=== PATIENT | female | born 1995 | race Two or more races ===

== ENCOUNTER 2023-07-10 21:40 | Outpatient (REF) | payer OTHER, SELFPAY ==
[2023-07-16 11:10] LABS: Age Gdln ACOG Testing Note (.); IGP, rfx Aptima HPV ASCU Note (.)
== END 2023-07-10 21:41 | disposition home or self-care (01) ==
LOC: LAB 21:40
PROVIDERS: PCP Physician Assistant; Visit Provider Physician Assistant
DX: Z01.419 Encounter for gynecological examination (general) (routine) without abnormal findings (principal)
CPT/HCPCS: G0145

== ENCOUNTER 2024-03-16 12:45 | Emergency (ER) | payer SELFPAY ==
[2024-03-16 12:51] VITALS: BP 126/73; PULSE 86; TEMP 37.1; O2SAT 100; BMI 22.7
--- NOTE | 2024-03-16 13:08 | US_ITS ---
[place] [address] Patient Name: HUI PITTMAN MRN: [id number] date: 1995 Sex: F Assigned Patient Location: ER Current Patient Location: Accession/Order Number: [id number] Exam Date: 03/16/2024 13:30 Report Date: 03/16/2024 14:02 At the request of: ZOILA ROCHA Procedure: US OB <= 14 weeks fetus EXAMINATION: US OB <= 14 weeks fetus HISTORY: Pelvic pain, dysuria 13 weeks preg COMPARISON: No relevant comparison available. FINDINGS: Transabdominal images Maldonado intrauterine gestation Gestational sac: 6.68 cm CRL: 6.69 cm, 13 2 days Heart rate: 166 beats minute Cervix: Closed, 3.2 cm The uterus is normal, anteverted The right ovary is normal containing a corpus luteal cyst. The left ovary is normal Clinical age: Unknown Ultrasound age: 13 weeks 0 days Ultrasound DUGLAS: 09/21/2024 US/US OB <= 14 weeks fetus IMPRESSION: Viable maldonado intrauterine gestation measuring 13 weeks 0 days Electronically authenticated by: YON VARNER Date: 03/16/2024 14:02
--- NOTE | 2024-03-16 13:09 | ED_ITS ---
HPI - General Chief complaint: Urogenital-Female Stated complaint: UTI COMPLAINTS 13 WEEKS Time Seen by Provider: 03/16/24 13:02 Source: patient Mode of arrival: walk-in Limitations: no limitations History of Present Illness HPI Narrative: Patient is a 28-year-old female who presents to the emergency department with multiple concerns related to her . She is 13 weeks by her own calculations of her last menstrual period. She has not been seen by an ADMINISTRATIVE TECH for this . She has not had any blood work or care, no previous ultrasounds. She states for the last 3 months she has had urinary frequency and burning. She is concerned because her significant other was diagnosed with a yeast infection. He states that he was given a cream and a pill. She worries that her symptoms may be due to this. She denies vaginal bleeding or any significant vaginal discharge. No fevers. She has occasional nausea without vomiting. When prompted, she reports mild pelvic pain intermittently. She has no significant abdominal pain, flank or back pain. Related Data Home Medications ?Medication ?Instructions ?Recorded ?Confirmed No Known Home Medications 03/16/24 03/16/24 Previous Rx's ?Medication ?Instructions ?Recorded cephalexin 500 mg capsule 500 mg PO Q8H 7 days #21 caps 03/16/24 ondansetron 4 mg disintegrating 4 mg PO Q6H PRN nausea and 03/16/24 tablet vomiting #12 tabs vitamin#30 30 mg iron-10 1 cap PO DAILY 30 days #30 caps 03/16/24 mg iron-folic acid 1 mg-omg3 capsule Allergies Allergy/AdvReac Type Severity Reaction Status Date / Time No Known Drug Allergies Allergy Verified 03/16/24 12:51 Review of Systems ROS Constitutional Denies: fever or chills Ears, nose, mouth, and throat Denies: throat pain Cardiovascular Denies: chest pain Respiratory Denies: shortness of breath or cough Gastrointestinal Reports: nausea; Denies: abdominal pain or vomiting Genitourinary Reports: painful urination, urinary frequency, urinary urgency and pelvic pain Musculoskeletal Denies: back pain or neck pain Integumentary/Breast Denies: rash Neurological Denies: numbness in extremities or weakness in extremities Hematologic/Lymphatic Denies: easy bruising or easy bleeding PFSH PFSH Social History Little interest or pleasure in doing things: not at all Feeling down, depressed, or hopeless: not at all Exam Narrative Exam Narrative: Gen.: Awake, alert, in no distress Head: Normocephalic, atraumatic ENT: Moist mucous membranes Respiratory: No respiratory distress Gastrointestinal: Abdomen is soft, nondistended and minimally tender in the suprapubic abdomen with no guarding or rebound Extremities: Moves extremities equally Psych: Normal mood and affect Neuro: No focal neuro deficit Skin: Warm, dry, intact Constitutional Vital Signs, click to edit/add: Last Vital Signs Temp 98.7 F 03/16/24 12:51 Pulse 86 03/16/24 12:51 Resp 18 03/16/24 12:51 BP 126/73 03/16/24 12:51 Pulse Ox 100 03/16/24 12:51 O2 Del Method Room Air 03/16/24 12:51 Course Vital Signs Vital signs: Vital Signs Temperature 98.7 F 03/16/24 12:51 Pulse Rate 86 03/16/24 12:51 Respiratory Rate 18 03/16/24 12:51 Blood Pressure 126/73 03/16/24 12:51 Pulse Oximetry 100 03/16/24 12:51 Oxygen Delivery Method Room Air 03/16/24 12:51 Temperature 98.7 F 03/16/24 12:51 Pulse Rate 86 03/16/24 12:51 Respiratory Rate 18 03/16/24 12:51 Blood Pressure 126/73 03/16/24 12:51 Pulse Oximetry 100 03/16/24 12:51 Oxygen Delivery Method Room Air 03/16/24 12:51 MDM - OB/Uterine Contractions MDM Narrative Medical decision making narrative: Ultrasound shows intrauterine gestation at 13 weeks, heart tones were obtained at bedside at 165. Patient with evidence of minimal urinary tract infection. She is given Keflex and Zofran for home. She was encouraged to increase fluids, follow-up with ADMINISTRATIVE TECH as scheduled and return to the ER if symptoms change or worsen. She has no complaints of vaginal bleeding or significant pain. SUPERVISED APC VISIT, PHYSICIAN ATTESTATION: Based on the medical record the care appears appropriate. ? Medical Records Attestation: I reviewed the patient's medical records. Lab Data Attestation: I reviewed the patient's lab results. Labs: Lab Results 03/16/24 Range/Units 13:25 Urine Color Lt. yellow (YELLOW) Urine Clarity Clear (CLEAR) Urine pH 6.0 (5.0-9.0) Ur Specific [place] 1.015 (1.005-1.025) Urine Protein Negative (NEG/TRACE) mg/dL Urine Glucose (UA) Negative (NEGATIVE) mg/dL Urine Ketones 40 A (NEGATIVE) mg/dL Urine Occult Blood Negative (NEGATIVE) Urine Nitrite Negative (NEGATIVE) Urine Bilirubin Negative (NEGATIVE) Urine Urobilinogen 0.2 (0.2-1.0) EU/dL Ur Leukocyte Esterase Small A (NEGATIVE) Urine RBC None seen (0-2) #/HPF Urine WBC 2-5 A (NONE SEEN) #/HPF Ur Squamous Epith Cells Rare (NONE/RARE) #/LPF Urine Crystals None seen (None Seen) #/HPF Urine Bacteria Trace A (NONE SEEN) #/HPF Urine Casts None seen (NONE SEEN) #/LPF Urine Mucus None seen (NONE SEEN) Ur Culture Indicated? Yes Imaging Data US - abdomen: Attestation: I have reviewed the pertinent imaging results. Discharge Plan Discharge Chief Complaint: Urogenital-Female Clinical Impression: Urinary tract infection, Intrauterine Patient Disposition: Home, Self-Care Time of Disposition Decision: 13:50 Condition: Good Prescriptions / Home Meds: New cephalexin 500 mg capsule 500 mg PO Q8H 7 Days Qty: 21 0RF ondansetron 4 mg tablet,disintegrating 4 mg PO Q6H PRN (Reason: nausea and vomiting) Qty: 12 0RF PNV #[id number] 30 mg iron-10 mg iron-1 mg capsule 1 cap PO DAILY 30 Days Qty: 30 0RF No Action No Known Home Medications Print Language: Kiswahili Instructions: Urinary Tract Infection in (ED), at 11 to 14 Weeks (ED) Additional Instructions: Follow up with ADMINISTRATIVE TECH as scheduled Referrals: Crissy Nathan [Physician Business Analyst Intern] - 1 week
--- OUTSIDE RECORDS SUMMARY | 2024-03-16 13:28 | XMS_ITS | CCD ---
Author Organization [facility] Inform ion Partnership [employer] [facility] [employer] Care Team Providers Care Senior Javascript Developer Name Role Phone DR HARRY JOSÉ Attending Unavailable MISC, DR KENNEY Primary Care Unavailable ESTEFANÍA, DR MCDONALD Admitting Unavailable MISC, DR KENNEY Primary Care Unavailable ESTEFANÍA, DR MCDONALD Attending Unavailable ESTEFANÍA, DR MCDONALD Admitting Unavailable ESTEFANÍA, DR MCDONALD Consulting Unavailable ESTEFANÍA, DR MCDONALD Consulting Unavailable ESTEFANÍA, DR MCDONALD Attending Unavailable ESTEFANÍA, DR MCDONALD Admitting Unavailable ZIEBER, DR KODAK Anderson Consulting Unavailable Unavailable Primary Care Provider CRISSY Carcamo Attending Unavailable Problems Active Problems Problem Classification Problem Date Documented Date Episodic/Chronic Immunizations and screening for infectious disease (1 source) Encounter for screening for human papillomavirus (HPV); Translations: [ENC SCREENING HUMAN PAPILLOMAVIRUS] Onset: 10-26-2020 Episodic Other screening for suspected conditions (not mental disorders or infectious disease) (4 sources) Encounter for screening for malignant neoplasm of cervix; Translations: [ENC SCREENING MALIG NEOPLASM CERV] Onset: 10-18-2020 Episodic Past or Other Problems Problem Classification Problem Date Documented Da te Episodic/Chronic Nonmalignant breast conditions (4 sources) Unspecified lump in the left breast, unspecified quadrant; Translations: [UNS LUMP IN LT BREAST UNS QUADRANT] Onset: 12-21-2019 Episodic Results Test Name Value Interpretation Reference Range Facil ity PAP IG RFX APTIMA HPVon 06-0 . . Normal [facility] Comment on above: Result Comment: Performed at: WB Performed By: #### P APHRA #### [facility] [address], [place] [address] Nesha Hays DIAGNOSIS: Comment Normal [facility] Comment on above: Result Comment: NEGATIVE FOR INTRAEPITHE LIAL LESION OR MALIGNANCY. Performed at: WB Performed By: #### P APHRA #### [facility] [address] [place] [address] Nesha Hays HPV Aptima Negative Normal Negative [facility] Comment on above: Result Comment: This nucleic acid amplif ication test detects fourteen high-risk HPV types (16,18,31,33,35,39,45,51,52,56,58,59,66,68) without differentiation. Performed at: =G Performed By: #### P APHRA #### [facility] [address] [place] [address] Neshaedin Hays Note: Comment Normal [facility] Comment on above: Result Comment: The Pap smear is a scree jeaneth test designed to aid in the detection of premalignant and malignant conditions of the uterine cervix. It is not a diagnostic procedure and should not be used as the sole means of detecting cervical cancer. Both false-positive and false-negative reports do occur. . Performed at: WB Performed By: #### P APHRA #### [facility] [address] [place] [address] Nesha Lis Performed by: Comment Normal [facility] Comment on above: Result Comment: Angelica Medrano [employer] nologist (ASCP) Performed at: WB Performed By: #### P APHRA #### [facility] [address] [place] [address] Nesha Hays Specimen adequacy: Comment Normal [facility] Comment on above: Result Comment: Satisfactory for evaluat ion. Endocervical and/or squamous metaplastic cells (endocervical component) are present. Performed at: WB Performed By: #### P APHRA #### [facility] [address] [place] [address] Nesha Hays US BREAST LEFT LIMITEDon US BREAST LEFT LIMITED Patient: LALITHA HANSEN Exam Date: 12/21/2019 : 1995 Gender:F Ordering : DR HARRY JOSÉ . Admission #: [id number] Family : Order #: [id number] CLICK HERE TO VIEW EXAM RADIOLOGY REPORT PROCEDURE: ULTRASOUND BREAST LEFT LIMITED COMPARISON: None. INDICATIONS: Lump in left breast; left breast tenderness and swelling for 1 day; no discharge or discoloration; currently asymptomatic. TECHNIQUE: Breast ultrasound was performed, with evaluation focusing only on specific areas of concern. FINDINGS: DIAGNOSTIC CATEGORY 1--NEGATIVE ASSESSMENT. LEFT BREAST: No significant suspicious finding. RECOMMENDATIONS: CLINICAL EVALUATION. PLEASE NOTE: A NORMAL ULTRASOUND EXAMINATION DOES NOT EXCLUDE THE POSSIBILITY OF BREAST CANCER. A CLINICALLY SUSPICIOUS PALPABLE LUMP SHOULD BE BIOPSIED. Dictated by: Kodak Jimenez M.D. on 12/21/2019 at 14:45 Approved by: Kodak Jimenez M.D. on 12/21/2019 at 14:46 Normal [facility] Vital Signs Date Time Vital Sign Value Performing Clinician David smith 07-10-2023 10:36-0500 Body mass index (BMI) [Ratio] 22.5 kg/m2 Crissy DESIR Work Phone: [facility] 07-10-2023 10:36-0500 Body weight 56.7 kg Crissy DESIR Work Phone: [facility] 07-10-2023 10:36-0500 Diastolic blood pressure 62 mm[Hg] Crissy DESIR Work Phone: [facility] 07-10-2023 10:36-0500 Systolic blood pressure 100 mm[Hg] Crissy DESIR Work Phone: [facility] Encounters Encounter Date Encounter Type Care Provider Facility Start: 07-10-2023 End: 07-10-2023 ambulatory CRISSY WEIR Not Available Start: 07-10-2023 End: 07-10-2023 Patient encounter procedure Crissy DESIR Work Phone: [facility] Start: 07-10-2023 End: 07-10-2023 Periodic preventive med est patient 18-39 yrs Crissy DESIR Work Phone: [facility] Comment on above: Well woman exam with routine gynecological exam Start: 07-09-2023 Chart abstracting Crissy DESIR Work Phone: [facility] Start: 12-01-[address] HARRY JOSÉ Facility : Start: 10-18-2020 End: 10-18-[address] DOCTOR VIEIRA Facility:H1 Start: 12-21-2019 End: 12-22-[address] HARRY JOSÉ Facility:H1 Plan of Treatment Date Care Activity Detail Author Start: 07-13-2024 End: 07-13-2024 Patient encounter procedure 07/13/2024 11:00 AM EST Office Visit [facility] [address] [place] [id number] Crissy Weir PA [address] [place], [facility] Start: 07-10-2023 End: 07-10-2023 Patient encounter procedure 07/10/2023 10:00 AM EST Office Visit [facility] [address] [id number] Crissy Weir PA [address] [place], [facility] Well woman exam with routine gynecological exam [facility] Comment on above: Well woman exam with routine gynecological exam Start: 01-24-2023 Influenza vaccination Influenza Vacc ine (#1) [facility] Cervical or vaginal smear or scraping study Pap Smear Pathology and Cytology Routine Well woman exam with routine gynecological exam Ordered: 07/10/2023 [facility] Work Phone: Comment on above: Ordered: 07/10/2023 Immunizations Immunization Date Immunization Notes Care Provider [facility] 04-27-2009 influenza virus vacc ine, unspecified formulation Crissy DESIR Work Phone: [facility] Payers Date Payer Category Payer Unknown [employer] [id number] 2023-Present [phone] [address] [address] [place] [address] [id number] 2023 Unknown [id number] 1995 Unknown [id number] 1995 Unknown [id number] 1995 Unknown [id number] 1995 Unknown [id number] 1957 Self-pay 1957 Unknown [id number] Social History Date Type Detail Facility Start: 07-09-2023 Tobacco smoking stat [facility] Never smoked tobacco [facility] Start: 07-09-2023 End: 07-10-2023 Alcohol intake Lifetime non-drinker (finding) [facility] Start: 1995 Sex Assigned At Not on file [facility] Start: 07-09-2023 Gender identity Not on file [facility] Start: 07-09-2023 History of Social function [facility] Start: 1995 Sex Assigned At Female N [facility] Start: 07-09-2023 Gender identity Identifies as female gender (finding) [facility] History of Present illness Narrative 07-10-2023 THANG Rios - 07/10/2023 10:00 AM EST Note Date & Type Note Facility 07-10-2023 History of Presen t illness Narrative Reason for Appointment: Patient ID: Lalitha Olguin is a 27 y.o. female who presents for Gynecologic Exam Patient presents today for Annual Exam appointment. Current Medications: currently has no medications in their medication list. Medical History: Active Ambulatory Problems Diagnosis Date Noted No Active Ambulatory Problems Resolved Ambulatory Problems Diagnosis Date Noted No Resolved Ambulatory Problems Past Medical History: Diagnosis Date Breakthrough bleeding with IUD Left breast lump No family history on file. Social History Tobacco Use Smoking status: Never Smokeless tobacco: Not on file Substance Use Topics Alcohol use: Never Drug use: Never History reviewed. No pertinent surgical history. No Known Allergies Review of Systems: Review of Systems Constitutional: Negative. HENT: Negative. Eyes: Negative. Respiratory: Negative. Cardiovascular: Negative. Gastrointestinal: Negative. Musculoskeletal: Negative. Skin: Negative. Neurological: Negative. Psychiatric/Behavioral: Negative. All other systems reviewed and are negative. Hematological: Negative. Endocrine: Negative. Objective Physical Exam Constitutional: Appearance: Normal appearance. Genitourinary: Right Adnexa: not tender and no mass present. Left Adnexa: not tender and no mass present. No cervical discharge. Breasts: Breasts are soft. Right: Normal. Left: Normal. HENT: Head: Normocephalic. Nose: Nose normal. Mouth/Throat: Mouth: Mucous membranes are moist. Cardiovascular: Rate and Rhythm: Normal rate. Pulmonary: Effort: Pulmonary effort is normal. Abdominal: General: Bowel sounds are normal. Palpations: Abdomen is soft. Musculoskeletal: General: Normal range of motion. Cervical back: Normal range of motion. Neurological: General: No focal deficit present. Mental Status: She is alert. Skin: General: Skin is warm and dry. Psychiatric: Mood and Affect: Mood normal. Vitals and nursing note reviewed. Exam conducted with a psychology assistant present. Patient presents today for an annual exam. Patient states she is doing well and has no complaints. Pap was obtained without difficulty. Pt desires b/c and is interested in the pill. Follow Up: Patient is to return in one year for annual unless needed otherwise. Vitals: Estimated body mass index is 22.5 kg/m as calculated from the following: Height as of 09/16/22: 5' 2.5 . Weight as of this encounter: 125 lb. BP: 100/62 Patient's last menstrual period was 07/01/2023 (approximate). Assessment/Plan Encounter Diagnosis Name Primary? Well woman exam with routine gynecological exam Patient presents today for an annual exam. Patient states she is doing well and has no complaints. Pt requests CX's to be done. Pap and Cx's was obtained without difficulty. Follow Up: Patient is to return in one year for annual unless needed otherwise. Documented by Debora Cardona MA on behalf of: THANG Rios documented in this encounter [facility] Evaluation note Note Date & Type Note Facility Evaluation note Diagnosis Well woman exam with routine gynecological exam Routine gynecological examination documented in this encounter [facility] Summary Purpose Family History No Family History Records FoundNo Family History Records Found Advance Directives No Advanced Directives Records FoundNo Advanced Directives Records Found Additional Source Comments INFORMATION SOURCE (unrecogn ized section and content) DATE CREATED AUTHOR 12/03/2020 [facility] DATE CREATED AUTHOR AUTHOR'S ORGANDUNIA ATDOMINIQUE 07/12/2023 [facility] EPIC Reason for Visit (unrecogniz ed section and content) Reason Comments Gynecologic Exam FOR RECORDS PERTAINING TO PATIENTS WHO ARE OR HAVE BEEN ENROLLED IN A CHEMICAL DEPENDENCY/SUBSTANCEABUSE PROGRAM, SOME INFORMATION MAY BE OMITTED. This clinical summary was aggregated from multiple sources. Caution should be exercised in using it in the provision of clinical care. This summary normalizes information from multiple sources, and as a consequence, information in this document may materially change the coding, format and clinical context of patient data. In addition, data may be omitted in some cases. CLINICAL DECISIONS SHOULD BE BASED ON THE PRIMARY CLINICAL RECORDS. [employer] provides no warranty or guarantee of the accuracy or completeness of information in this document.
[2024-03-16 13:34] LABS: Bilirubin Urine NEGATIVE (NEGATIVE); Blood Urine NEGATIVE (NEGATIVE); Clarity Urine CLEAR (CLEAR); Color Urine LT. YELLOW (YELLOW); Glucose Urine UA NEGATIVE (NEGATIVE); Ketones Urine 40 mg/dL (NEGATIVE); Leukocyte Esterase Urine SMALL (NEGATIVE); Nitrite Urine NEGATIVE (NEGATIVE); Protein Urine NEGATIVE (NEG/TRACE); Specific Gravity Urine 1.015 (1.005-1.025); Urobilinogen Urine 0.2 EU/dL (0.2-1.0)
[2024-03-16 13:35] LABS: Urine Microscopic Indicated YES
[2024-03-16 13:41] LABS: Bacteria Urine TRACE #/HPF (NONE SEEN); RBC Urine NONE SEEN #/HPF (0-2)
[2024-03-16 13:42] LABS: Cast Seen? NONE SEEN #/LPF (NONE SEEN); Crystals Seen? None Seen #/HPF (None Seen); Mucus Urine NONE SEEN (NONE SEEN); Squamous Epithelial Cell Urine RARE #/LPF (NONE/RARE); Urine Culture Indicated YES
== END 2024-03-16 13:59 | disposition home or self-care (01) ==
PROVIDERS: Physician Assistant; Emergency Provider Emergency Medicine
DX: O23.41 Unspecified infection of urinary tract in pregnancy, first trimester (principal); N39.0 Urinary tract infection, site not specified; Z3A.13 13 weeks gestation of pregnancy
CPT/HCPCS: 76801; 81001; 87086; 99284

== ENCOUNTER 2024-05-04 13:05 | Outpatient (OUT) | payer OTHER, SELFPAY ==
--- NOTE | 2024-05-04 13:07 | US_ITS ---
[address] [address] Patient Name: HUI PITTMAN MRN: [id number] date: 1995 Sex: F Assigned Patient Location: [facility] Current Patient Location: Accession/Order Number: [id number] Exam Date: 05/04/2024 13:08 Report Date: 05/05/2024 04:35 At the request of: HARRY JOSÉ Procedure: US OB anatomy EXAMINATION: US OB anatomy, US OB cervical length HISTORY: ANATOMY COMPARISON: Ultrasound OB < 14 weeks 03/16/2024 TECHNIQUE: Transabdominal sonographic examination was performed for obstetrical and evaluation. FINDINGS: Number: 1 Heart Rate: 144 bpm H.B. /min Amniotic Fluid Volume: Subjectively normal. Placental Location: POSTERIOR with lower margin 5.8 cm from os. Cervix Length: 5.17 cm ; closed. ANATOMY: Normal Structures -cerebellum, choroid plexus, cisterna magna, lateral cerebral ventricles, orbits, midline falx, hard palate, four-chamber heart, RVOT, LVOT, stomach, kidneys, bladder, umbilical cord insertion into abdomen, three-vessel cord, cervical spine, thoracic spine, lumbar spine, sacral spine, right upper extremity, left upper extremity, right lower extremity, left lower extremity. SUBOPTIMALLY SEEN: None ABNORMALITIES: None BIOMETRY: BPD: 4.64 cm; 20 weeks 0 days; 51.10 % HC: 17.52 cm; 20 weeks 0 days; 43.60 % AC: 14.48 cm; 19 weeks 6 days; 37.50 % FL: 3.33 cm; 20 weeks 3 days; 57.90 % EFW:323.10 g; 50.10 % FL/AC: 23 FL/BPD: 71.77 HC/AC: 1.21 GESTATIONAL AGE: Age by EDC: 20 weeks 0 days Age by current US: 20 weeks 1 day DUGLAS by current US: 2024-09-20 DUGLAS by EDC: 2024-09-21 US/US OB anatomy IMPRESSION: 1. Single live intrauterine with growth detailed above. Electronically authenticated by: RASHID BARR Date: 05/05/2024 04:35
--- NOTE | 2024-05-04 13:07 | US_ITS ---
[address] [address] Patient Name: HUI PITTMAN MRN: [id number] date: 1995 Sex: F Assigned Patient Location: [facility] Current Patient Location: Accession/Order Number: [id number] Exam Date: 05/04/2024 13:08 Report Date: 05/05/2024 04:35 At the request of: HARRY JOSÉ Procedure: US OB cervical length EXAMINATION: US OB anatomy, US OB cervical length HISTORY: ANATOMY COMPARISON: Ultrasound OB < 14 weeks 03/16/2024 TECHNIQUE: Transabdominal sonographic examination was performed for obstetrical and evaluation. FINDINGS: Number: 1 Heart Rate: 144 bpm H.B. /min Amniotic Fluid Volume: Subjectively normal. Placental Location: POSTERIOR with lower margin 5.8 cm from os. Cervix Length: 5.17 cm ; closed. ANATOMY: Normal Structures -cerebellum, choroid plexus, cisterna magna, lateral cerebral ventricles, orbits, midline falx, hard palate, four-chamber heart, RVOT, LVOT, stomach, kidneys, bladder, umbilical cord insertion into abdomen, three-vessel cord, cervical spine, thoracic spine, lumbar spine, sacral spine, right upper extremity, left upper extremity, right lower extremity, left lower extremity. SUBOPTIMALLY SEEN: None ABNORMALITIES: None BIOMETRY: BPD: 4.64 cm; 20 weeks 0 days; 51.10 % HC: 17.52 cm; 20 weeks 0 days; 43.60 % AC: 14.48 cm; 19 weeks 6 days; 37.50 % FL: 3.33 cm; 20 weeks 3 days; 57.90 % EFW:323.10 g; 50.10 % FL/AC: 23 FL/BPD: 71.77 HC/AC: 1.21 GESTATIONAL AGE: Age by EDC: 20 weeks 0 days Age by current US: 20 weeks 1 day DUGLAS by current US: 2024-09-20 DUGLAS by EDC: 2024-09-21 US/US OB cervical length IMPRESSION: 1. Single live intrauterine with growth detailed above. Electronically authenticated by: RASHID BARR Date: 05/05/2024 04:35
--- OUTSIDE RECORDS SUMMARY | 2024-05-04 13:34 | XMS_ITS | CCD ---
Author Organization [facility] Care Team Providers Care Superintendent [employer] Name Role Phone DR HARRY HARDWICK Attending Unavailable MISC, DR KENNEY Primary Care Unavailable MULU, DR MCDONALD Admitting Unavailable MISC, DR KENNEY Primary Care Unavailable MULU, DR MCDONALD Attending Unavailable MULU, DR MCDONALD Admitting Unavailable MULU, DR MCDONALD Consulting Unavailable MULU, DR MCDONALD Consulting Unavailable MULU, DR MCDONALD Attending Unavailable MULU, DR MCDONALD Admitting Unavailable ZIEBZAIRA, DR KODAK Anderson Consulting Unavailable Unavailable Primary Care Provider CRISSY Carcamo Attending Unavailable Medications Current Medications Medication Drug Class(es) Dates Sig (Normalized) Sig (Original) multivitamin () 27-0.8 MG tablet (3 sources) Start: 04-15-2024 take 1 tablet by mouth once daily multivitamin () 27-0.8 MG tablet Indications: , unspecified gestational age Take 1 tablet by mouth Daily 30 tablet 11 04/15/2024 Active Start: 03-18-2024 take 1 tablet by mounika th once daily multivitamin () 27-0.8 MG tablet TAKE 1 TABLET BY MOUTH ONCE DAILY FOR 30 DAYS 03/18/2024 Active ondansetron 4 mg disintegrating oral tablet (3 sources) Serotonin-3 Receptor Antagonist Start: 03-18-2024 take 1 tablet by mouth every six hours as needed ondansetron ODT (Zofran-ODT) 4 MG disintegrating tablet Take 4 mg by mouth every 6 (six) hours if needed 03/18/2024 Active Problems Active Problems Problem Classification Problem Date Documented Date Episodic/Chronic Immunizations and screening for infectious disease (1 source) Encounter for screening for human papillomavirus (HPV); Translations: [ENC SCREENING HUMAN PAPILLOMAVIRUS] Onset: 10-26-2020 Episodic Menstrual disorders (1 source) Missed period; Translations: [Irregular menstruation, unspecified] 04-02-2024 Chronic Other and delivery including normal (6 sources) ; Translations: [Encounter for supervision of normal , unspecified, unspecified trimester] Onset: 04-20-2024 04-02-2024 Episodic Other screening for suspected conditions (not mental disorders or infectious disease) (8 sources) Encounter for screening for malignant neoplasm of cervix; Translations: [Patient encounter status] Onset: 10-18-2020 Episodic Residual codes; unclassified (4 sources) Gestation period, 18 weeks; Translations: [18 weeks gestation of ] Onset: 04-20-2024 04-20-2024 Episodic Past or Other Problems Problem Classification Problem Date Documented Da te Episodic/Chronic Nonmalignant breast conditions (4 sources) Unspecified lump in the left breast, unspecified quadrant; Translations: [UNS LUMP IN LT BREAST UNS QUADRANT] Onset: 12-21-2019 Episodic Results Test Name Value Interpretation Reference Range Facility Urinalysis macro (dipstick) panel (U)on 04-21-2024 Bilirubin, UA Negative Negative - 4(70) +++ mg/dL [facility] Blood, UA Negative Negative - 50 Quentin/mcL [facility] Clarity, UA Clear [facility] re Color, UA Yellow [facility] e Glucose, UA Negative Negative - 1999(110) ++++ mg/dL [facility] Interpretation and review of laboratory results Normal [facility] Ketones, UA Negative Negative - 160(16) ++++ mg/dL [facility] Leukocytes, UA Negative Negative - 500+++ Angelica/mcL [facility] Nitrite, UA Negative Negative - Positive [facility] pH, UA 7 5 - [address] [facility] e Protein, UA Negative Negative - 1999(20) ++++ mg/dL [facility] Spec Grav, UA 1.025 1 - 1.03 [facility] Urobilinogen, UA 0.2 0.2 - 12 mg/dL [facility] HCG ( test) Ql (U)o n 04-02-2024 Interpretation and review of laboratory results Abnormal [facility] Preg Test, Ur Positive Negative [facility] Urinalysis macro (dipstick) panel (U)on 04-02-2024 Bilirubin, UA Negative Negative - 4(70) +++ mg/dL [facility] Blood, UA Negative Negative - 50 Quentin/mcL [facility] Clarity[facility] UA Yellow [facility] Glucose, UA Negative Negative - 1999(110) ++++ mg/dL [facility] Interpretation and review of laboratory results Normal [facility] Ketones, UA Negative Negative - 160(16) ++++ mg/dL [facility] Leukocytes, UA Negative Negative - 500+++ Angelica/mcL [facility] Nitrite, UA Negative Negative - Positive [facility] pH, UA 5.5 5 - [address] [facility] e Protein, UA Negative Negative - 1999(20) ++++ mg/dL [facility] Spec Grav, UA 1.02 1 - 1.03 [facility] Urobilinogen, UA 1.0 0.2 - 12 mg/dL [facility] PAP IG RFX APTIMA HPVon 06-0 . . Normal [facility] Comment on above: Result Comment: Perf ormed at: WB Performed By: #### P APHRA #### [facility] [address] [address] [place] DIAGNOSIS: Comment Normal [facility] Comment on above: Result Comment: NEGA TIVE FOR INTRAEPITHELIAL LESION OR MALIGNANCY. Performed at: WB Performed By: #### P APHRA #### [facility] [address] [address] [place] HPV Aptima Negative Normal Negative [facility] Comment on above: Result Comment: This nucleic acid amplification test detects fourteen high-risk HPV types (16,18,31,33,35,39,45,51,52,56,58,59,66,68) without differentiation. Performed at: =G Performed By: #### P APHRA #### [facility] [address] [address] [place] Note: Comment Normal [facility] Comment on above: Result Comment: The Pap smear is a screening test designed to aid in the detection of premalignant and malignant conditions of the uterine cervix. It is not a diagnostic procedure and should not be used as the sole means of detecting cervical cancer. Both false-positive and false-negative reports do occur. . Performed at: WB Performed By: #### P APHRA #### [facility] [address] [address] [place] Performed by: Comment Normal [facility] Comment on above: Result Comment: Erick Medrano, Mower Mechanic (ASCP) Performed at: WB Performed By: #### P APHRA #### [facility] [address] [address] [place] Specimen adequacy: Comment Normal [facility] Comment on above: Result Comment: Sati sfactory for evaluation. Endocervical and/or squamous metaplastic cells (endocervical component) are present. Performed at: WB Performed By: #### P APHRA #### [facility] [address] [address] [place] US BREAST LEFT LIMITEDon US BREAST LEFT LIMITED Patient: LALITHA HANSEN Exam Date: 12/21/2019 : 1995 Gender:F Ordering : DR HARRY HARDWICK . Admission #: [id number] Family : Order #: [id number] CLICK HERE TO VIEW EXAM RADIOLOGY REPORT [...] Jimenez M.D. on 12/21/2019 at 14:46 Normal [facility] Vital Signs Date Time Vital Sign Value Performing Clinician Faci lity 04-20-2024 13:14-0500 Body mass index (BMI) [Ratio] 23.22 kg/m2 Harry Hardwick DO Work Phone: [facility] 04-20-2024 13:14-0500 Body weight 58.51 kg Harry Mulu DO Work Phone: [facility] 04-20-2024 13:14-0500 Diastolic blood pressure 68 mm[Hg] Harry Mulu DO Work Phone: [facility] 04-20-2024 13:14-0500 Systolic blood pressure 108 mm[Hg] Harry Mulu DO Work Phone: [facility] 07-10-2023 10:36-0500 Body mass index (BMI) [Ratio] 22.5 kg/m2 Crissy DESIR Work Phone: [facility] 07-10-2023 10:36-0500 Body weight 56.7 kg Crissy DESIR Work Phone: [facility] 07-10-2023 10:36-0500 Diastolic blood pressure 62 mm[Hg] Crissy DESIR Work Phone: [facility] 07-10-2023 10:36-0500 Systolic blood pressure 100 mm[Hg] Crissy DESIR Work Phone: [facility] Healthcare Encounters Encounter Date Encounter Type Care Provider Facility Start: 04-20-2024 End: 04-20-2024 Office outpatient visit 15 minutes Harry Silveirao DO Work Phone: [facility] Comment on above: 18 weeks gestation o f ; Second trimester ; Screening, , for anatomic survey Start: 04-02-2024 End: 04-02-2024 Office outpatient visit 5 minutes [facility] Mulu Nurse [facility] Comment on above: GA: 15w3d Start: 04-02-2024 End: 04-02-2024 ambulatory CRISSY WEIR Not Available Start: 07-10-2023 End: 07-10-2023 ambulatory CRISSY WEIR Not Available Start: 07-10-2023 End: 07-10-2023 Patient encounter procedure Crissy DESIR Work Phone: [facility] Healthcare Start: 07-10-2023 End: 07-10-2023 Periodic preventive med est patient 18-39 yrs Crissy DESIR Work Phone: [facility] Comment on above: Well woman exam with routine gynecological exam Start: 07-09-2023 Chart abstracting Crissy DESIR Work Phone: [facility] Start: 12-01-[address] HARRY HARDWICK Facility :[facility]1 Start: 10-18-2020 End: 10-18-[address] DOCTOR VIEIRA Facility:[facility] Start: 12-21-2019 End: 12-22-[address] HARRY HARDWICK Facility:[facility] Procedures Date Procedure Procedure Detail Performing Clinician Start: 04-20-2024 Urnls dip stick/tabl et rgnt non-auto w/o micrscp Harry Mulu DO Work Phone: Start: 04-02-2024 End: 04-02-2024 Urnls dip stick/tablet rgnt non-auto w/o micrscp Harry Mulu DO Work Phone: Plan of Treatment Date Care Activity Detail Author Start: 07-13-2024 End: 07-13-2024 Patient encounter procedure 07/13/2024 11:00 AM EST Office Visit [facility] [address] [place] [address] Crissy Weir PA [address] [place], [place] [id number] [facility] Start: 05-20-2024 End: 05-20-2024 Patient encounter procedure 05/20/2024 9:10 AM EST Routine [facility] [address] [place] [id number] Harry Hardwick DO [address] [place], [place] [id number] [facility] Start: 05-04-2024 End: 05-04-2024 Professional / ancillary services management 05/04/2024 1:00 PM EST Ancillary Procedure [facility] [address] [place] [address] [facility] Start: 04-20-2024 End: 08-18-2024 Alpha fetoprotein, maternal Alpha fetoprotein, maternal Lab Routine 18 weeks gestation of Second trimester Expected: 04/20/2024 (Approximate), Expires: 08/18/2024 [facility] Work Phone: Comment on above: Expected: 04/20/2024 (Approximate), Expires: 08/18/2024 Start: 04-20-2024 End: 04-20-2025 US for US OB ANATOMY SINGLE W US OB CERVICAL LENGTH Imaging Routine 18 weeks gestation of Second trimester Screening, , for anatomic survey Expected: 04/20/2024 (Approximate), Expires: 04/20/2025 [facility] Healthcare Comment on above: Expected: 04/20/2024 (Approximate), Expires: 04/20/2025 Start: 04-19-2024 End: 04-19-2024 Patient encounter procedure 04/19/2024 9:20 AM EST Routine [facility] [address] [place] [id number] Harry Hardwick, [address] [place] [address] [facility] Start: 04-02-2024 End: 04-02-2025 ABO/Rh ABO/Rh Lab Routine Missed menses , unspecified gestational age Expected: 04/02/2024 (Approximate), Expires: 04/02/2025 [facility] Healthcare Comment on above: Expected: 04/02/2024 (Approximate), Expires: 04/02/2025 Start: 04-02-2024 End: 04-02-2025 Blood type and Indirect antibody screen panel - Blood Type and screen Lab Routine Missed menses , unspecified gestational age Expected: 04/02/2024 (Approximate), Expires: 04/02/2025 [facility] Work Phone: Comment on above: Expected: 04/02/2024 (Approximate), Expires: 04/02/2025 Start: 04-02-2024 End: 04-02-2025 Drugs of abuse panel - Urine by Screen method Rapid drug screen, urine Lab Routine , unspecified gestational age Encounter for supervision of normal first in first trimester Expected: 04/02/2024 (Approximate), Expires: 04/02/2025 [facility] Comment on above: Expected: 04/02/2024 (Approximate), Expires: 04/02/2025 Start: 01-25-2024 Influenza vaccination Influenza Vacc ine (#1) [facility] Start: 07-10-2023 End: 07-10-2023 Patient encounter procedure 07/10/2023 10:00 AM EST Office Visit [facility] [address] [place] [address] Crissy Weir PA [address] [place] [address] Well woman exam with routine gynecological exam [facility] Comment on above: Well woman exam with routine gynecological exam Start: 01-24-2023 Influenza vaccination Influenza Vacc ine (#1) [facility] Bacteria identified in Urine by Culture Urine culture Microbiology Routine Missed menses Ordered: 04/02/2024 [facility] Comment on above: Ordered: 04/02/2024 CBC W Auto Different ial panel - Blood CBC and differential Lab Routine Missed menses , unspecified gestational age Ordered: 04/02/2024 [facility] Comment on above: Ordered: 04/02/2024 Cytology Cervical or vaginal smear or scraping study Pap Smear Pathology and Cytology Routine Well woman exam with routine gynecological exam Ordered: 07/10/2023 [facility] Work Phone: Comment on above: Ordered: 07/10/2023 Hemoglobin A1c/Hemoglobin.total in Blood Hemoglobin A1c Lab Routine Missed menses , unspecified gestational age Ordered: 04/02/2024 [facility] Comment on above: Ordered: 04/02/2024 Hepatitis B virus surface Ag [Presence] in Serum or Plasma by Immunoassay Hepatitis B surface antigen Lab Routine Missed menses , unspecified gestational age Ordered: 04/02/2024 [facility] Comment on above: Ordered: 04/02/2024 Hepatitis C virus Ab [Presence] in Serum or Plasma by Immunoassay Hepatitis C antibody Lab Routine Missed menses , unspecified gestational age Ordered: 04/02/2024 [facility] Healthcare Comment on above: Ordered: 04/02/2024 HIV-1/HIV-2 antigen/antibody combination immunoassay HIV-1 and HIV-2 antibodies Lab Routine Missed menses , unspecified gestational age Ordered: 04/02/2024 [facility] Comment on above: Ordered: 04/02/2024 Reagin Ab [Presence] in Serum by RPR RPR Lab Routine Missed menses , unspecified gestational age Ordered: 04/02/2024 [facility] Comment on above: Ordered: 04/02/2024 Rubella antibody, IgG Rubella an tibody, IgG Lab Routine Missed menses , unspecified gestational age Ordered: 04/02/2024 [facility] Comment on above: Ordered: 04/02/2024 Immunizations Immunization Date Immunization Notes Care Provider Wil hoyos 04-27-2009 influenza virus vacc ine, unspecified formulation Crissy DESIR Work Phone: [facility] Healthcare Payers Date Payer Category Payer Medicaid (Managed Care) [employer] [id number] 2024 Medicaid [id number] 2023 Unknown [employer] [id number] 2023-Present [phone] [address] [address] [place] [address] [id number] 2023 Unknown [id number] 1995 Unknown [id number] 1995 Unknown [id number] 1995 Unknown [id number] 1995 Unknown [id number] 1995 Unknown [id number] 1957 Self-pay 1957 Unknown [id number] Social History Date Type Detail Facility Start: 07-09-2023 Tobacco smoking stat [facility] Never smoked tobacco [facility] Start: 07-09-2023 End: 04-02-2024 Alcohol intake Lifetime non-drinker (finding) [facility] Start: 1995 Sex Assigned At Not on file [facility] Start: 07-09-2023 Gender identity Not on file [facility] Start: 07-09-2023 History of Social function [facility] Start: 1995 Sex Assigned At Female [facility] Start: 07-09-2023 Gender identity Identifies as female gender (finding) [facility] Start: 12-30-2023 [facility] History of Present illness Narrative 04-20-2024 Lis MullenJEREMY - 04/20/2024 11:00 AM EST Note Date & Type Note Facility 04-20-2024 History of Presen t illness Narrative Reason for Appointment: Patient ID: Lalitha Chong is a 28 y.o. female who presents for Routine Visit Patient presents today for Return OB appointment. MEDICATIONS Current Outpatient Medications Medication Instructions multivitamin () 27-0.8 MG tablet 1 tablet, Oral, Daily ondansetron ODT (ZOFRAN-ODT) 4 mg, Every 6 hours PRN ALLERGIES No Known Allergies PROBLEMS Active Ambulatory Problems Diagnosis Date Noted 18 weeks gestation of 04/20/2024 Second trimester 04/20/2024 Screening, , for anatomic survey 04/20/2024 Resolved Ambulatory Problems Diagnosis Date Noted No Resolved Ambulatory Problems Past Medical History: Diagnosis Date Breakthrough bleeding with IUD Left breast lump Pap smear for cervical cancer screening 2021 HISTORY PAST MEDICAL HISTORY SOCIAL HISTORY Past Medical History: Diagnosis Date Breakthrough bleeding with IUD Left breast lump Pap smear for cervical cancer screening 2021 neg Social History Tobacco Use Smoking status: Never Smokeless tobacco: Not on file Substance Use Topics Alcohol use: Never Drug use: Never FAMILY HISTORY No family history on file. SURGICAL HISTORY No past surgical history on file. REVIEW OF SYSTEMS Review of Systems: Review of Systems Constitutional: Negative. HENT: Negative. Eyes: Negative. Respiratory: Negative. Cardiovascular: Negative. Gastrointestinal: Negative. Genitourinary: Negative. Musculoskeletal: Negative. Skin: Negative. Neurological: Negative. All other systems reviewed and are negative. Hematological: Negative. Endocrine: Negative. Allergic/Immunologic: Negative. OBJECTIVE Objective: Physical Exam Constitutional: Appearance: Normal appearance. She is well-developed. Cardiovascular: Rate and Rhythm: Normal rate and regular rhythm. Pulmonary: Effort: Pulmonary effort is normal. Breath sounds: Normal breath sounds. Abdominal: General: Bowel sounds are normal. There is no distension. Palpations: Abdomen is soft. Tenderness: There is no abdominal tenderness. There is no guarding or rebound. Musculoskeletal: General: No swelling. Normal range of motion. Right lower leg: No edema. Left lower leg: No edema. Neurological: Mental Status: She is alert and oriented to person, place, and time. Skin: General: Skin is warm and dry. Psychiatric: Mood and Affect: Mood normal. Behavior: Behavior normal. Vitals and nursing note reviewed. Exam conducted with a biology adjunct instructor present. Vitals: Estimated body mass index is 23.22 kg/m as calculated from the following: Height as of 09/16/22: 5' 2.5 . Weight as of this encounter: 129 lb. BP: Patient's last menstrual period was 11/12/2023. ASSESSMENT & PLAN ICD-10-CM 1. 18 weeks gestation of Z3A.18 Alpha fetoprotein, maternal US OB ANATOMY SINGLE W US OB CERVICAL LENGTH Alpha fetoprotein, maternal 2. Second trimester Z34.92 Alpha fetoprotein, maternal US OB ANATOMY SINGLE W US OB CERVICAL LENGTH Alpha fetoprotein, maternal 3. Screening, , for anatomic survey Z36.89 US OB ANATOMY SINGLE W US OB CERVICAL LENGTH Patient presents today for a routine obstetrics appointment. Patient is currently 18w1d with a Estimated Date of Delivery: 09/21/24. Pt doing well with no complaints. Pt given anatomy scan and msAFP orders to get scheduled. Pt to return in 4 weeks for scheduled OB appt. Documented by Lis Mullen LPN on behalf of: Harry Hardwick DO documented in this encounter [facility] History of Present illness Narrative 04-02-2024 Jesusita Ramos LPN - 04/02/2024 11:00 AM EST Note Date & Type Note Facility 04-02-2024 History of Presen t illness Narrative Reason for Appointment: Patient ID: Lalitha Chong is a 28 y.o. female who presents for Routine Visit Patient presents today for a Nurse OB Intake appointment. Patient is 15w3d with a Estimated Date of Delivery: 09/21/24 OB History Para Term AB Living 2 SAB IAB Ectopic Multiple Live Births # Outcome Date GA Lbr Jose Ramon/2nd Weight Sex Type Anes PTL Lv 2 Current 1 Obstetric Comments Last pap smear date 10/18/2020 neg Current Medications: has a current medication list which includes the following prescription(s): multivitamin and ondansetron odt. Medical History: Active Ambulatory Problems Diagnosis Date Noted No Active Ambulatory Problems Resolved Ambulatory Problems Diagnosis Date Noted No Resolved Ambulatory Problems Past Medical History: Diagnosis Date Breakthrough bleeding with IUD Left breast lump Pap smear for cervical cancer screening 2021 No family history on file. Social History Tobacco Use Smoking status: Never Smokeless tobacco: Not on file Substance Use Topics Alcohol use: Never Drug use: Never History reviewed. No pertinent surgical history. No Known Allergies Vitals: Estimated body mass index is 22.5 kg/m as calculated from the following: Height as of 09/16/22: 5' 2.5 . Weight as of 07/10/23: 125 lb. BP: Patient's last menstrual period was 11/12/2023. Assessment/Plan Diagnoses and all orders for this visit: Missed menses - Type and screen; Future - ABO/Rh; Future - CBC and differential - Hemoglobin A1c - RPR - Rubella antibody, IgG - Hepatitis B surface antigen - Hepatitis C antibody - HIV-1 and HIV-2 antibodies - Urine culture - POCT , urine manually resulted - POCT urinalysis dipstick manually resulted , unspecified gestational age - Type and screen; Future - ABO/Rh; Future - CBC and differential - Hemoglobin A1c - RPR - Rubella antibody, IgG - Hepatitis B surface antigen - Hepatitis C antibody - HIV-1 and HIV-2 antibodies - Rapid drug screen, urine; Future Encounter for supervision of normal first in first trimester - Rapid drug screen, urine; Future Nurse Note: OB Intake: Patient presents today for first OB visit. Patients history has been reviewed in great detail including any potential risks. Patient signed consent forms and patient desires testing in both trimesters. Patient currently has no complaints and has been advised to drink 6-8 glasses of water a day, eat no raw or undercooked meat, and stay away from [facility]. Patient has also been advised to not change litter boxes and eat 6 small meals a day. Patient has been consulted regarding the do's and don'ts of . Patient was given labs and all questions and concerns were answered. Follow Up: Patient is to return in 4 weeks for routine OB appointment. Follow Up: Patient is to have labs drawn at directed and return to office for initial OB appointment with provider. Patient may call office as needed with any concerns or questions. Nurse Visit Completed by: Jesusita Ramos LPN documented in this encounter [facility] History of Present illness Narrative 07-10-2023 THANG [...] nursing note reviewed. Exam conducted with a biology adjunct instructor present. Patient presents today for an annual [...] of: THANG Rios documented in this encounter [facility] Healthcare Evaluation note Note Date & Type Note Facility Evaluation note Diagnosis Well woman exam with routine gynecological exam Routine gynecological examination documented in this encounter [facility] Healthcare Evaluation note Note Date & Type Note Facility Evaluation note Diagnosis Missed menses , unspecified gestational age Encounter for supervision of normal first in first trimester documented in this encounter [facility] Healthcare Evaluation note Note Date & Type Note Facility Evaluation note Diagnosis 18 weeks gestation of Second trimester state, incidental Screening, , for anatomic survey Encounter for anatomic survey documented in this encounter [facility] Healthcare Summary Purpose Family History No Family History Records FoundNo Family History Records Found Advance Directives No Advanced Directives Records FoundNo Advanced Directives Records Found Additional Source Comments INFORMATION SOURCE (unrecogn ized section and content) DATE CREATED AUTHOR 12/03/2020 [facility] DATE CREATED AUTHOR AUTHOR'S ORGANIZ ATION 04/04/2024 [facility] EPIC Reason for Visit (unrecogniz ed section and content) Reason Comments Gynecologic Exam Reason Comments Routine Visit FOR RECORDS PERTAINING TO PATIENTS WHO ARE [...] BE BASED ON THE PRIMARY CLINICAL RECORDS. [facility]. provides no warranty or guarantee of the accuracy or completeness of information in this document.
== END 2024-05-04 13:06 | disposition home or self-care (01) ==
LOC: NOMS 13:05
PROVIDERS: Visit Provider Obstetrics & Gynecology
DX: Z34.92 Encounter for supervision of normal pregnancy, unspecified, second trimester (principal); Z36.89 Encounter for other specified antenatal screening; Z3A.20 20 weeks gestation of pregnancy
CPT/HCPCS: 76805; 76817

== ENCOUNTER 2024-06-17 11:56 | Outpatient (OUT) | payer OTHER, SELFPAY ==
--- OUTSIDE RECORDS SUMMARY | 2024-06-17 12:14 | XMS_ITS | CCD ---
Author Organization [facility] Care Team Providers Care Pipe Tester Name Role Phone DR HARRY HARDWICK Attending Unavailable MISC, DR KENNEY Primary Care Unavailable MULU, DR MCDONALD Admitting Unavailable MISC, DR KENNEY Primary Care Unavailable MULU, DR MCDONALD Attending Unavailable MULU, DR MCDONALD Admitting Unavailable MULU, DR MCDONALD Consulting Unavailable MULU, DR MCDONALD Consulting Unavailable MULU, DR MCDONALD Attending Unavailable MULU, DR MCDONALD Admitting Unavailable ZIBOSSMAN, DR KODAK Anderson Consulting Unavailable Unavailable Primary Care Provider UnavailCRISSY Shaw Attending Unavailable HARRY HARDWICK Attending Unavailable Medications Current Medications Medication Drug Class(es) Dates Sig (Normalized) Sig (Original) multivitamin () 27-0.8 MG tablet (6 sources) Start: 04-15-2024 take 1 tablet by [...] Active ondansetron 4 mg disintegrating oral tablet (6 sources) Serotonin-3 Receptor Antagonist Start: 03-18-2024 take [...] 04-02-2024 Chronic Other and delivery including normal (11 sources) ; Translations: [Encounter for supervision of normal , unspecified, unspecified trimester] Onset: 04-20-2024 04-02-2024 Episodic Other screening for suspected conditions (not mental disorders or infectious disease) (13 sources) Encounter for screening for malignant neoplasm of cervix; Translations: [Patient encounter status] Onset: 10-18-2020 Episodic Residual codes; unclassified (7 sources) Gestation period, 18 weeks; Translations: [18 weeks gestation of ] Onset: 04-20-2024 04-20-2024 Episodic Residual codes; unclassified (2 sources) Gestation period, 22 weeks; Translations: [22 weeks gestation of ] 05-20-2024 Episodic Past or Other Problems Problem Classification Problem Date Documented Da te Episodic/Chronic Nonmalignant breast conditions (4 sources) Unspecified lump in the left breast, unspecified quadrant; Translations: [UNS LUMP IN LT BREAST UNS QUADRANT] Onset: 12-21-2019 Episodic Results Test Name Value Interpretation Reference Range Facility Urinalysis macro (dipstick) panel (U)on 05-20-2024 Bilirubin, UA Negative Negative - 4(70) +++ mg/dL [facility] Blood, UA Negative Negative - 50 Quentin/mcL [facility] Clarity, UA Clear [facility] re Color, UA Yellow [facility] Glucose, UA Negative Negative - 1999(110) ++++ mg/dL [facility] Interpretation and review of laboratory results Abnormal [facility] Ketones, UA Negative Negative - 160(16) ++++ mg/dL [facility] Leukocytes, UA Trace Negative - 500+++ Angelica/mcL [facility] Nitrite, UA Negative Negative - Positive [facility] pH, UA 7 5 - 9 [facility] Protein, UA Negative Negative - 1999(20) ++++ mg/dL [facility] Spec Grav, UA 1.025 1 - 1.03 [facility] Urobilinogen, UA 0.2 0.2 - 12 mg/dL [facility] Urinalysis macro (dipstick) panel (U)on 04-21-2024 Bilirubin, UA Negative Negative - 4(70) +++ mg/dL [facility] Blood, UA Negative Negative - 50 Quentin/mcL [facility] Clarity, UA Clear [facility] Color, UA Yellow [facility] Glucose, UA Negative Negative - 1999(110) ++++ mg/dL [facility] Interpretation and review of laboratory results Normal [facility] Ketones, UA Negative Negative - 160(16) ++++ mg/dL [facility] Leukocytes, UA Negative Negative - 500+++ Angelica/mcL [facility] Nitrite, UA Negative Negative - Positive [facility] pH, UA 7 5 - 9 [facility] Protein, UA Negative Negative - 1999(20) ++++ mg/dL [facility] Spec Grav, UA 1.025 1 - 1.03 [facility] care Urobilinogen, UA 0.2 0.2 - 12 mg/dL [facility] HCG ( test) Ql (U)o n 04-02-2024 Interpretation and review of laboratory results Abnormal [facility] Preg Test, Ur Positive Negative [facility] Urinalysis macro (dipstick) panel (U)on 04-02-2024 Bilirubin, UA Negative Negative - 4(70) +++ mg/dL [facility] Blood, UA Negative Negative - 50 Quentin/mcL [facility] Clarity, UA Clear [facility] Color, UA Yellow [facility] Glucose, UA Negative Negative - 1999(110) ++++ mg/dL [facility] Interpretation and review of laboratory results Normal [facility] Ketones, UA Negative Negative - 160(16) ++++ mg/dL [facility] Leukocytes, UA Negative Negative - 500+++ Angelica/mcL [facility] Nitrite, UA Negative Negative - Positive [facility] pH, UA 5.5 5 - 9 [facility] Protein, UA Negative Negative - 1999(20) ++++ mg/dL [facility] Spec Grav, UA 1.02 1 - 1.03 [facility] care Urobilinogen, UA 1.0 0.2 - 12 mg/dL [facility] PAP IG RFX APTIMA HPVon 06-0 . . Normal [facility] Comment on above: Result Comment: Perf ormed at: WB Performed By: #### P APHRA #### [facility] [address] [address] Nesha Hays DIAGNOSIS: Comment Normal [facility] Comment on above: Result Comment: NEGA TIVE FOR INTRAEPITHELIAL LESION OR MALIGNANCY. Performed at: WB Performed By: #### P APHRA #### [facility] [address] [address] Nesha Hays HPV Aptima Negative Normal Negative [facility] Comment on above: Result Comment: This nucleic acid amplification test detects fourteen high-risk HPV types (16,18,31,33,35,39,45,51,52,56,58,59,66,68) without differentiation. Performed at: =G Performed By: #### P APHRA #### [facility] [address] [address] Nesha Lis Note: Comment Normal [facility] Comment on above: Result Comment: The [...] WB Performed By: #### P APHRA #### [facility] [address] [address] Nesha Lis Performed by: Comment Normal [facility] Comment on above: Result Comment: Erick Medrano Floor Installation Mechanic (ASCP) Performed at: WB Performed By: #### P APHRA #### [facility] [address] [address] Nesha Hays Specimen adequacy: Comment Normal [facility] Comment on above: Result Comment: Sati sfactory for evaluation. Endocervical and/or squamous metaplastic cells (endocervical component) are present. Performed at: WB Performed By: #### P APHRA #### [facility] [address] [place] [address] Nesha Hays US BREAST LEFT LIMITEDon US BREAST LEFT LIMITED Patient: LALITHA HANSEN Exam Date: 12/21/2019 : 1995 Gender:F Ordering : DR HARRY HARDWICK . Admission #: [id number] Family : Order #: [id number] CLICK HERE TO VIEW EXAM RADIOLOGY REPORT [...] Jimenez M.D. on 12/21/2019 at 14:46 Normal [facility] Vital Signs Date Time Vital Sign Value Performing Clinician Faci lity 05-20-2024 09:35-0500 Body mass index (BMI) [Ratio] 24.14 kg/m2 Harry Mulu DO Work Phone: [facility] 05-20-2024 09:35-0500 Body weight 60.84 kg Harry Mulu DO Work Phone: [facility] 05-20-2024 09:35-0500 Diastolic blood pressure 60 mm[Hg] Harry Mulu DO Work Phone: [facility] 05-20-2024 09:35-0500 Systolic blood pressure 100 mm[Hg] Harry Mulu DO Work Phone: [facility] 04-20-2024 13:14-0500 Body mass index (BMI) [Ratio] 23.22 kg/m2 Harry Mulu DO Work Phone: [facility] 04-20-2024 13:14-0500 Body weight 58.51 kg Harry Mulu DO Work Phone: [facility] 04-20-2024 13:14-0500 Diastolic blood pressure 68 mm[Hg] Harry Mulu DO Work Phone: [facility] 04-20-2024 13:14-0500 Systolic blood pressure 108 mm[Hg] Harry Mulu DO Work Phone: [facility] 07-10-2023 10:36-0500 Body mass index (BMI) [Ratio] 22.5 kg/m2 Crissy DESIR Work Phone: [facility] 07-10-2023 10:36-0500 Body weight 56.7 kg Crissy DESIR Work Phone: [facility] 07-10-2023 10:36-0500 Diastolic blood pressure 62 mm[Hg] Crissy DESIR Work Phone: [facility] 07-10-2023 10:36-0500 Systolic blood pressure 100 mm[Hg] Crissy DESIR Work Phone: [facility] Encounters Encounter Date Encounter Type Care Provider Facility Start: 05-20-2024 End: 05-20-2024 Bamboo flowsheet Harry Mulu DO Work Phone: [facility] Start: 05-20-2024 End: 05-20-2024 Bamboo flowsheet Harry Mulu DO Work Phone: [facility] Start: 05-20-2024 End: 05-20-2024 ambulatory HARRY MULU Not Available Start: 05-20-2024 End: 05-20-2024 Office outpatient visit 15 minutes Harry Mulu DO Work Phone: [facility] Comment on above: 22 weeks gestation o f ; Second trimester ; Diabetes mellitus screening Start: 04-20-2024 End: 04-20-2024 Office outpatient visit 15 minutes Harry Mulu DO Work Phone: [facility] Comment on above: 18 weeks gestation o f ; Second trimester ; Screening, , for anatomic survey Start: 04-02-2024 End: 04-02-2024 Office outpatient visit 5 minutes [facility] Mulu Nurse [facility] Comment on above: GA: 15w3d Start: 04-02-2024 End: 04-02-2024 ambulatory CRISSY WEIR Not Available Start: 07-10-2023 End: 07-10-2023 ambulatory CRISSY WEIR Not Available Start: 07-10-2023 End: 07-10-2023 Patient encounter procedure Crissy DESIR Work Phone: [facility] Start: 07-10-2023 End: 07-10-2023 Periodic preventive [...] Date Procedure Procedure Detail Performing Clinician Start: 05-20-2024 Urnls dip stick/tabl et rgnt non-auto w/o micrscp Harry Mulu DO Work Phone: Start: 04-20-2024 Urnls dip stick/tabl et rgnt non-auto w/o micrscp Harry Mulu DO Work Phone: Start: 04-02-2024 End: 04-02-2024 Urnls dip stick/tablet rgnt non-auto w/o micrscp Harry Mulu DO Work Phone: Plan of Treatment Date Care Activity Detail Author Start: 07-13-2024 End: 07-13-2024 Patient encounter procedure 07/13/2024 11:00 AM EST [facility] Visit [facility] [address] [address] [place] [address] Crissy Weir PA [address] [place] [address] [facility] Start: 06-17-2024 End: 06-17-2024 Patient encounter procedure 06/17/2024 1:30 PM EST Routine [facility] [address] [place] [address] Crissy Weir PA [address] [place], [place] [id number] [facility] Start: 05-20-2024 End: 05-20-2025 CBC panel - Blood by Automated count CBC Lab Routine Diabetes mellitus screening Expected: 05/20/2024 (Approximate), Expires: 05/20/2025 [facility] Work Phone: Comment on above: Expected: 05/20/2024 (Approximate), Expires: 05/20/2025 Start: 05-20-2024 End: 05-20-2025 Measurement of glucose 1 hour after glucose challenge for glucose tolerance test Glucose tolerance, 1 hour Lab Routine Diabetes mellitus screening Expected: 05/20/2024 (Approximate), Expires: 05/20/2025 [facility] Comment on above: Expected: 05/20/2024 (Approximate), Expires: 05/20/2025 Start: 05-20-2024 End: 05-20-2024 Patient encounter procedure 05/20/2024 9:10 AM EST Routine [facility] [address] [place] [address] Harry Hardwick DO [address] [place] [address] [facility] Start: 05-04-2024 End: 05-04-2024 Professional / ancillary services management 05/04/2024 1:00 PM EST Ancillary Procedure [facility] [address] [place] [address] [facility] Start: 04-20-2024 End: 08-18-2024 Alpha fetoprotein, maternal Alpha fetoprotein, maternal Lab Routine 18 weeks gestation of Second trimester Expected: 04/20/2024 (Approximate), Expires: 08/18/2024 [facility] Work Phone: Comment on above: Expected: 04/20/2024 (Approximate), Expires: 08/18/2024 Start: 04-20-2024 End: 04-20-2025 US for US OB ANATOMY SINGLE W US OB CERVICAL LENGTH Imaging Routine 18 weeks gestation of Second trimester Screening, , for anatomic survey Expected: 04/20/2024 (Approximate), Expires: 04/20/2025 [facility] Comment on above: Expected: 04/20/2024 (Approximate), Expires: 04/20/2025 Start: 04-19-2024 End: 04-19-2024 Patient encounter procedure 04/19/2024 9:20 AM EST Routine [facility] [address] [place] [id number] Harry Hardwick DO [address] [place] [address] [facility] Start: 04-02-2024 End: 04-02-2025 ABO/Rh ABO/Rh Lab Routine Missed menses , unspecified gestational age Expected: 04/02/2024 (Approximate), Expires: 04/02/2025 [facility] Comment on above: Expected: 04/02/2024 (Approximate), Expires: 04/02/2025 Start: 04-02-2024 End: 04-02-2025 Blood type and Indirect antibody screen panel - Blood Type and screen Lab Routine Missed menses , unspecified gestational age Expected: 04/02/2024 (Approximate), Expires: 04/02/2025 [facility] Work Phone: Comment on above: Expected: 04/02/2024 (Approximate), Expires: 04/02/2025 Start: 04-02-2024 End: 04-02-2025 Drugs of abuse panel - Urine by Screen method Rapid drug screen, urine Lab Routine , unspecified gestational age Encounter for supervision of normal first in first trimester Expected: 04/02/2024 (Approximate), Expires: 04/02/2025 [facility] Comment on above: Expected: 04/02/2024 (Approximate), Expires: 04/02/2025 Start: 01-25-2024 Influenza vaccination Influenza Vacc ine (#1) [facility] Start: 07-10-2023 End: 07-10-2023 Patient encounter procedure 07/10/2023 10:00 AM EST Office Visit [facility] [address] [place] [address] Crissy Weir PA [address] [place] [address] Well woman exam with routine gynecological exam [facility] Comment on above: Well woman exam with routine gynecological exam Start: 01-24-2023 Influenza vaccination Influenza Vacc ine (#1) [facility] Bacteria identified in Urine by Culture Urine culture Microbiology Routine Missed menses Ordered: 04/02/2024 [facility] Comment on above: Ordered: 04/02/2024 CBC W Auto Different ial panel - Blood CBC and differential Lab Routine Missed menses , unspecified gestational age Ordered: 04/02/2024 [facility] Comment on above: Ordered: 04/02/2024 Cytology Cervical or vaginal smear or scraping study Pap Smear Pathology and Cytology Routine Well woman exam with routine gynecological exam Ordered: 07/10/2023 [facility] Work Phone: Comment on above: Ordered: 07/10/2023 Hemoglobin A1c/Hemoglobin.total in Blood Hemoglobin A1c Lab Routine Missed menses , unspecified gestational age Ordered: 04/02/2024 [facility] Comment on above: Ordered: 04/02/2024 Hepatitis B virus surface Ag [Presence] in Serum or Plasma by Immunoassay Hepatitis B surface antigen Lab Routine Missed menses , unspecified gestational age Ordered: 04/02/2024 [facility] Comment on above: Ordered: 04/02/2024 Hepatitis C virus Ab [Presence] in Serum or Plasma by Immunoassay Hepatitis C antibody Lab Routine Missed menses , unspecified gestational age Ordered: 04/02/2024 [facility] Comment on above: Ordered: 04/02/2024 HIV-1/HIV-2 antigen/antibody combination immunoassay HIV-1 and HIV-2 antibodies Lab Routine Missed menses , unspecified gestational age Ordered: 04/02/2024 [facility] Comment on above: Ordered: 04/02/2024 Reagin Ab [Presence] in Serum by RPR RPR Lab Routine Missed menses , unspecified gestational age Ordered: 04/02/2024 [facility] Comment on above: Ordered: 04/02/2024 Rubella antibody, IgG Rubella an tibody, IgG Lab Routine Missed menses , unspecified gestational age Ordered: 04/02/2024 [facility] Comment on above: Ordered: 04/02/2024 Immunizations Immunization Date Immunization Notes Care Provider Wil hoyos 04-27-2009 influenza virus vacc ine, unspecified formulation Crissy DESIR Work Phone: [facility] Payers Date Payer Category Payer Medicaid (Managed Care) [employer] [id number] 2024 Medicaid [id number] 2023 Unknown [employer] [id number] 2023-Present [phone] [address] [address] [place] [address] [id number] 2023 Unknown [id number] 1995 Unknown [id number] 1995 Unknown [id number] 1995 Unknown [id number] 1995 Unknown [id number] 1995 Unknown [id number] [id number] 1995 Unknown [id number] 1957 Self-pay 1957 Unknown [id number] Social History Date Type Detail Facility Start: 07-09-2023 Tobacco smoking stat [facility] Never smoked tobacco [facility] Start: 07-09-2023 End: 05-20-2024 Alcohol intake Lifetime non-drinker (finding) [facility] Start: 1995 Sex Assigned At Not on file [facility] Start: 07-09-2023 Gender identity Not on file [facility] Start: 07-09-2023 History of Social function [facility] Start: 1995 Sex Assigned At Female [facility] Start: 07-09-2023 Gender identity Identifies as female gender (finding) [facility] Start: 12-30-2023 [facility] History of Present illness Narrative 05-20-2024 Lis Mullen, JEREMY - 05/20/2024 9:10 AM EST Note Date & Type Note Facility 05-20-2024 History of Presen t illness Narrative Reason [...] No family history on file. SURGICAL HISTORY History reviewed. No pertinent surgical history. REVIEW OF SYSTEMS Review of Systems: Review [...] nursing note reviewed. Exam conducted with a chemist instrumentation present. Vitals: Estimated body mass index is 24.14 kg/m as calculated from the following: Height as of 09/16/22: 5' 2.5 . Weight as of this encounter: 134 lb 1.9 oz. BP: 100/60 Patient's last menstrual period was 11/12/2023. ASSESSMENT & PLAN ICD-10-CM 1. 22 weeks gestation of Z3A.22 POCT urinalysis dipstick manually resulted 2. Second trimester Z34.92 POCT urinalysis dipstick manually resulted 3. Diabetes mellitus screening Z13.1 POCT urinalysis dipstick manually resulted CBC Glucose tolerance, 1 hour CBC Glucose tolerance, 1 hour Patient presents today for a routine obstetrics appointment. Patient is currently 22w2d with a Estimated Date of Delivery: 09/21/24. rEVIEWED anatomy scan - given glucola order with instructions. Pt to return in 4 weeks for scheduled OB appt. Documented by Lis Mullen LPN on behalf of: Harry Hardwick DO documented in this encounter [facility] History of Present illness Narrative 04-20-2024 Lis Mullen LPN - 04/20/2024 11:00 AM EST Note Date [...] nursing note reviewed. Exam conducted with a chemist instrumentation present. Vitals: Estimated body mass index is [...] or undercooked meat, and stay away from [facility]. Patient has also been advised to not [...] nursing note reviewed. Exam conducted with a chemist instrumentation present. Patient presents today for an annual [...] of: THANG Rios documented in this encounter [facility] Evaluation note Note Date & Type Note Facility Evaluation note Diagnosis Well woman exam with routine gynecological exam Routine gynecological examination documented in this encounter [facility] Evaluation note Note Date & Type Note Facility Evaluation note Diagnosis Missed menses , unspecified gestational age Encounter for supervision of normal first in first trimester documented in this encounter [facility] Evaluation note Note Date & Type Note Facility Evaluation note Diagnosis 18 weeks gestation of Second trimester state, incidental Screening, , for anatomic survey Encounter for anatomic survey documented in this encounter [facility] Evaluation note Note Date & Type Note Facility Evaluation note Diagnosis 22 weeks gestation of Second trimester state, incidental Diabetes mellitus screening Screening for diabetes mellitus documented in this encounter [facility] Summary Purpose Family History No Family History Records FoundNo Family History Records Found Advance Directives No Advanced Directives Records FoundNo Advanced Directives Records Found Additional Source Comments INFORMATION SOURCE (unrecogn ized section and content) DATE CREATED AUTHOR 12/03/2020 [facility] DATE CREATED AUTHOR AUTHOR'S ORGANIZ ATION 05/21/2024 [facility] Specialists EPIC Reason for Visit [...] BE BASED ON THE PRIMARY CLINICAL RECORDS. [email or web address]. provides no warranty or guarantee of the accuracy or completeness of information in this document.
[2024-06-17 13:15] LABS: Basophils Percent Auto 0.1 % (0.2-2.0); Eosinophils Absolute Auto 0.3 10^3/uL (0.0-0.7); Eosinophils Percent Auto 3.2 % (0.9-7.0); Hematocrit 34.7 % (36.0-48.0); Hemoglobin 11.3 g/dL (12.0-16.0); Immature Granulocytes Abs Auto 0.07 10^3/uL (0.00-0.03); Immature Granulocytes Pct Auto 0.8 % (0.0-0.5); Lymphocytes Absolute Auto 1.5 10^3/uL (1.2-3.8); Mean Corpuscular HGB Conc 32.6 g/dL (29.9-35.2); Mean Corpuscular Hemoglobin 29.4 pg (26.7-34.0); Mean Corpuscular Volume 90.4 fL (81.0-99.0); Mean Platelet Volume 11.4 fL (9.5-13.5); Monocytes Absolute Auto 0.7 10^3/uL (0.3-0.8); Monocytes Percent Auto 7.5 % (1.7-12.0); Neutrophils Absolute Auto 6.3 10^3/uL (1.4-6.5); Neutrophils Percent Auto 71.4 % (43.0-75.0); Platelet Count 194 10^3/uL (150-450); Red Blood Count 3.84 10^6/uL (4.20-5.40); Red Cell Distribution Width 13.3 % (11.0-15.0); White Blood Count 8.8 10^3/uL (4.0-11.0)
[2024-06-17 13:36] LABS: Glucose 1 Hour 117 mg/dL (<130)
[2024-06-21 17:07] LABS: AFP Value 95.8 ng/mL (.); Gest. Age on Collection Date 26.3 weeks (.); Gestat. Age Based On Ultrasound (.); Insulin Dep Diabetes No (.); Maternal Age At EDD 27.1 yr (.); OSBR Risk 1 IN See interpretation. (.); Results Report (.)
== END 2024-06-17 11:57 | disposition home or self-care (01) ==
LOC: LAB 11:58
PROVIDERS: Visit Provider Obstetrics & Gynecology
DX: Z34.92 Encounter for supervision of normal pregnancy, unspecified, second trimester (principal)
CPT/HCPCS: 36415; 82105; 82950; 85025

== ENCOUNTER 2024-07-01 12:37 | Outpatient (OUT) | payer OTHER, SELFPAY ==
--- OUTSIDE RECORDS SUMMARY | 2024-07-01 12:55 | XMS_ITS | CCD ---
Author Organization [facility] Care Team Providers Care Slitter Helper Name Role Phone DR HARRY HARDWICK Attending Unavailable MISC, DR KENNEY Primary Care Unavailable MULU, DR MCDONALD Admitting Unavailable MISC, DR KENNEY Primary Care Unavailable MULU, DR MCDONALD Attending Unavailable MULU, DR MCDONALD Admitting Unavailable MULU, DR MCDONALD Consulting Unavailable MULU, DR MCDONALD Consulting Unavailable MULU, DR MCDONALD Attending Unavailable MULU, DR MCDONALD Admitting Unavailable ZIEBER, DR KODAK Anderson Consulting Unavailable Unavailable Primary Care Provider UnavailCRISSY Shaw Attending Unavailable CRISSY WEIR Attending Unavailable HARRY HARDWICK Attending Unavailable Medications Current Medications Medication Drug Class(es) Dates Sig (Normalized) Sig (Original) multivitamin () 27-0.8 MG tablet (10 sources) Start: 04-15-2024 take 1 tablet by [...] Active ondansetron 4 mg disintegrating oral tablet (10 sources) Serotonin-3 Receptor Antagonist Start: 03-18-2024 take [...] 04-02-2024 Chronic Other and delivery including normal (17 sources) ; Translations: [Encounter for supervision of normal , unspecified, unspecified trimester] Onset: 04-20-2024 04-02-2024 Episodic Other screening for suspected conditions (not mental disorders or infectious disease) (17 sources) Encounter for screening for malignant neoplasm of cervix; Translations: [Patient encounter status] Onset: 10-18-2020 Episodic Residual codes; unclassified (11 sources) Gestation period, 18 weeks; Translations: [18 weeks gestation of ] Onset: 04-20-2024 04-20-2024 Episodic Residual codes; unclassified (2 sources) Gestation period, 22 weeks; Translations: [22 weeks gestation of ] 05-20-2024 Episodic Residual codes; unclassified (2 sources) Gestation period, 26 weeks; Translations: [26 weeks gestation of ] 06-17-2024 Episodic Past or Other Problems Problem Classification Problem Date Documented Da te Episodic/Chronic Nonmalignant breast conditions (4 sources) Unspecified lump in the left breast, unspecified quadrant; Translations: [UNS LUMP IN LT BREAST UNS QUADRANT] Onset: 12-21-2019 Episodic Results Test Name Value Interpretation Reference Range Facility ALL CBC WITH AUTO DIFFon BASOPHILS ABSOLUTE AUTO 0 [facility] Basophils/100 WBC (Bld) 0.1 % Low 0.2 - 2.0 % [facility] Eosinophils/100 WBC (Bld) 3.2 % 0.9 - 7.0 % [facility] Erythrocyte distribution width (RBC) [Ratio] 13.3 % 11.0 - 15.0 % [facility] Hematocrit (Bld) [Volume fraction] 34.7 % Low 36.0 - 48.0 % [facility] Hem[facility] (Bld[facility] [Mass/Vol] 11.3 g/dL Low 12.0 - 16.0 g/dL [facility] IMMATURE GRANULOCYTES ABS AUTO 0.07 High [facility] Immature granulocytes/100 WBC (Bld) 0.8 % High 0.0 - 0.5 % [facility] Interpretation and review of laboratory results Abnormal [facility] LYMPHOCYTES ABSOLUTE AUTO 1.5 [facility] Lymphocytes/100 WBC (Bld) 17 % Low 20.5 - 60.0 % [facility] MCH (RBC) [Entitic mass] 29.4 pg 26.7 - 34.0 pg [facility] MCHC (RBC) [Mass/Vol] 32.6 g/dL 29.9 - 35.2 g/dL [facility] MCV (RBC) [Entitic vol] 90.4 fL 81.0 - 99.0 fL [facility] MONOCYTES ABSOLUTE AUTO 0.7 [facility] Monocytes/100 WBC (Bld) 7.5 % 1.7 - 12.0 % [facility] NEUTROPHILS ABSOLUTE AUTO 6.3 [facility] Neutrophils/100 WBC (Bld) 71.4 % 43.0 - 75.0 % [facility] Platelet mean volume (Bld) [Entitic vol] 11.4 fL 9.5 - 13.5 fL [facility] EO # 0.3 [facility] TB PLT 194 [facility] e TB RBC 3.84 Low [facility] TB WBC 8.8 [facility] e CL[facility]IS[facility] e Urinalysis macro (dipstick) panel (U)on 06-17-2024 Bilirubin, UA Negative Negative - 4(70) +++ mg/dL [facility] Blood, UA Negative Negative - 50 Quentin/mcL [facility] Clarity, UA Clear [facility] re Color, UA Yellow [facility] e Glucose, UA Positive Negative - 1999(110) ++++ mg/dL [facility] Interpretation and review of laboratory results Abnormal [facility] Ketones, UA Negative Negative - 160(16) ++++ mg/dL [facility] Leukocytes, UA Negative Negative - 500+++ Angelica/mcL [facility] Nitrite, UA Trace Negative - Positive [facility] pH, UA 7.5 5 - 9 [facility] Protein, UA Positive Negative - 1999(20) ++++ mg/dL [facility] Spec Grav, UA 1.02 1 - 1.03 [facility] Urobilinogen, UA 0.2 0.2 - 12 mg/dL [facility] Urinalysis macro (dipstick) panel (U)on 05-20-2024 Bilirubin, UA Negative Negative - 4(70) +++ mg/dL [facility] Blood, UA Negative Negative - 50 Quentin/mcL [facility] Healthcare Clarity, UA Clear [facility] re Color, UA Yellow [facility] Healthcar e Glucose, UA Negative Negative - 1999(110) ++++ mg/dL [facility] Interpretation and review of laboratory results Abnormal [facility] Ketones, UA Negative Negative - 160(16) ++++ mg/dL [facility] Leukocytes, UA Trace Negative - 500+++ Angelica/mcL [facility] Healthcare Nitrite, UA Negative Negative - Positive [facility] pH, UA 7 5 - 9 [facility] Healthcar e Protein, UA Negative Negative - 1999(20) ++++ mg/dL [facility] Healthcare Spec Grav, UA 1.025 1 - 1.03 [facility] care Urobilinogen, UA 0.2 0.2 - 12 mg/dL [facility] Urinalysis macro (dipstick) panel (U)on 04-21-2024 Bilirubin, UA Negative Negative - 4(70) +++ mg/dL [facility] Blood, UA Negative Negative - 50 Quentin/mcL [facility] Healthcare Clarity, UA Clear [facility] Healthca re Color, UA Yellow [facility] Healthcar e Glucose, UA Negative Negative - 1999(110) ++++ mg/dL [facility] Interpretation and review of laboratory results Normal [facility] Ketones, UA Negative Negative - 160(16) ++++ mg/dL [facility] Leukocytes, UA Negative Negative - 500+++ Angelica/mcL [facility] Healthcare Nitrite, UA Negative Negative - Positive [facility] pH, UA 7 5 - 9 [facility] Healthcar e Protein, UA Negative Negative - 1999(20) ++++ mg/dL [facility] Spec Grav, UA 1.025 1 - 1.03 [facility] Health care Urobilinogen, UA 0.2 0.2 - 12 mg/dL [facility] HCG ( test) Ql (U)o n 04-02-2024 Interpretation and review of laboratory results Abnormal [facility] Preg Test, Ur Positive Negative [facility] Health care [facility] Urinalysis macro (dipstick) panel (U)on 04-02-2024 Bilirubin, UA Negative Negative - 4(70) +++ mg/dL [facility] Blood, UA Negative Negative - 50 Quentin/mcL [facility] Healthcare Clarity, UA Clear [facility] re Color, UA Yellow [facility] Health[facility] e Glucose, UA Negative Negative - 1999(110) ++++ mg/dL [facility] Interpretation and review of laboratory results Normal [facility] Ketones, UA Negative Negative - 160(16) ++++ mg/dL [facility] Leukocytes, UA Negative Negative - 500+++ Angelica/mcL [facility] Nitrite, UA Negative Negative - Positive [facility] pH, UA 5.5 5 - 9 [facility] Healthcar e Protein, UA Negative Negative - 1999(20) ++++ mg/dL [facility] Spec Grav, UA 1.02 1 - 1.03 [facility] Urobilinogen, UA 1.0 0.2 - 12 mg/dL [facility] Healthcar e PAP IG RFX APTIMA HPVon 06-0 . . Normal [facility] Comment on above: Result Comment: Perf ormed at: WB Performed By: #### P APHRA #### [facility] [address] [place] [address] Nesha Hays DIAGNOSIS: Comment Normal [facility] Comment on above: Result Comment: NEGA TIVE FOR INTRAEPITHELIAL LESION OR MALIGNANCY. Performed at: WB Performed By: #### P APHRA #### [facility] [address] [address] Nesha Hays HPV Aptima Negative Normal Negative [facility] Comment on above: Result Comment: This nucleic acid amplification test detects fourteen high-risk HPV types (16,18,31,33,35,39,45,51,52,56,58,59,66,68) without differentiation. Performed at: =G Performed By: #### P APHRA #### [facility] [address] [address] Nesha Hays Note: Comment [facility] Comment on above: Result Comment: The Pap smear is a screening test designed to aid in the detection of premalignant and malignant conditions of the uterine cervix. It is not a diagnostic procedure and should not be used as the sole means of detecting cervical cancer. Both false-positive and false-negative reports do occur. . Performed at: WB Performed By: #### P APHRA #### [facility] [address] [place] [address] Nesha Hays Performed by: Comment Normal [facility] Comment on above: Result Comment: Erick Medrano Exhauster Engineer (ASCP) Performed at: WB Performed By: #### P APHRA #### [facility] [address] [id number] Nesha Hays Specimen adequacy: Comment Normal [facility] Comment on above: Result Comment: Sati sfactory for evaluation. Endocervical and/or squamous metaplastic cells (endocervical component) are present. Performed at: WB Performed By: #### P APHRA #### [facility] [address] [id number] Nesha Hays US BREAST LEFT LIMITEDon US BREAST LEFT LIMITED Patient: LALITHA HANSEN Exam Date: 12/21/2019 : 1995 Gender:F Ordering : DR HARRY HARDWICK . Admission #: [id number] Family : Order #: [id number] CLICK HERE TO VIEW EXAM RADIOLOGY REPORT [...] Jimenez M.D. on 12/21/2019 at 14:46 Normal [facility] Vital Signs Date Time Vital Sign Value Performing Clinician David smith 06-17-2024 13:33-0500 Body mass index (BMI) [Ratio] 25.76 kg/m2 Crissy DESIR Work Phone: [facility] 06-17-2024 13:33-0500 Body weight 64.92 kg Crissy DESIR Work Phone: [facility] 06-17-2024 13:33-0500 Diastolic blood pressure 50 mm[Hg] Crissy DESIR Work Phone: [facility] 06-17-2024 13:33-0500 Systolic blood pressure 102 mm[Hg] Crissy DESIR Work Phone: [facility] 05-20-2024 09:35-0500 Body mass index (BMI) [Ratio] 24.14 kg/m2 Harry Mulu DO Work Phone: [facility] 05-20-2024 09:35-0500 Body weight 60.84 kg Harry Mulu DO Work Phone: [facility] 05-20-2024 09:35-0500 Diastolic blood pressure 60 mm[Hg] Harry Mulu DO Work Phone: [facility] 05-20-2024 09:35-0500 Systolic blood pressure 100 mm[Hg] Harry Mulu DO Work Phone: [facility] 04-20-2024 13:14-0500 Body mass index (BMI) [Ratio] 23.22 kg/m2 Harry Mulu DO Work Phone: [facility] 04-20-2024 13:14-0500 Body weight 58.51 kg Harry Mulu DO Work Phone: [facility] 04-20-2024 13:14-0500 Diastolic blood pressure 68 mm[Hg] Harry Mulu DO Work Phone: [facility] 04-20-2024 13:14-0500 Systolic blood pressure 108 mm[Hg] Harry Mulu DO Work Phone: [facility] 07-10-2023 10:36-0500 Body mass index (BMI) [Ratio] 22.5 kg/m2 Crissy DESIR Work Phone: [facility] 07-10-2023 10:36-0500 Body weight 56.7 kg Crissy DESIR Work Phone: [facility] 07-10-2023 10:36-0500 Diastolic blood pressure 62 mm[Hg] Crissy DESIR Work Phone: [facility] Healthcare 07-10-2023 10:36-0500 Systolic blood pressure 100 mm[Hg] Crissy DESIR Work Phone: [facility] Encounters Encounter Date Encounter Type Care Provider Facility Start: 06-17-2024 End: 06-17-2024 Bamboo flowsheet Crissy DESIR Work Phone: [facility] Start: 06-17-2024 End: 06-17-2024 Bamboo flowsheet Crissy DESIR Work Phone: [facility] Start: 06-17-2024 End: 06-17-2024 [facility] Result Encounter Harry Mulu DO Work Phone: [facility] External Department Unsolicited Start: 06-17-2024 End: 06-17-2024 Office outpatient visit 15 minutes Crissy DESIR Work Phone: [facility] Comment on above: Second trimester pre gnancy; 26 weeks gestation of Start: 06-17-2024 End: 06-17-2024 ambulatory CRISSY WEIR Not Available Start: 05-20-2024 End: 05-20-2024 Bamboo flowsheet Harry Mulu DO Work Phone: [facility] Start: 05-20-2024 End: 05-20-2024 Bamboo flowsheet Harry Mulu DO Work Phone: [facility] Start: 05-20-2024 End: 05-20-2024 ambulatory HARRY MULU Not Available Start: 05-20-2024 End: 05-20-2024 Office outpatient visit 15 minutes Harry Mulu DO Work Phone: [facility] Comment on above: 22 weeks gestation o f ; Second trimester ; Diabetes mellitus screening Start: 04-20-2024 End: 04-20-2024 Office outpatient visit 15 minutes Harry Mulu DO Work Phone: [facility] Comment on above: 18 weeks gestation o f ; Second trimester ; Screening, , for anatomic survey Start: 04-02-2024 End: 04-02-2024 Office outpatient visit 5 minutes [facility] Mulu Nurse [facility] Comment on above: GA: 15w3d Start: 04-02-2024 End: 04-02-2024 ambulatory CRISSY WEIR Not Available Start: 07-10-2023 End: 07-10-2023 ambulatory CRISSY WEIR Not Available Start: 07-10-2023 End: 07-10-2023 Patient encounter procedure Crissy DESIR Work Phone: [facility] Start: 07-10-2023 End: 07-10-2023 Periodic preventive [...] Date Procedure Procedure Detail Performing Clinician Start: 06-17-2024 Urnls dip stick/tabl et rgnt non-auto w/o micrscp Crissy DESIR Work Phone: Start: 06-17-2024 ALL CBC WITH AUTO DIFF Harry Mulu DO Work Phone: Start: 05-20-2024 Urnls dip stick/tabl et rgnt [...] EST Office Visit [facility] [address] [place] [phone] Crissy Weir PA [address] [place] [address] [facility] Start: 07-01-2024 End: 07-01-2024 Patient encounter procedure 07/01/2024 11:50 AM EST Routine [facility] [address] [place] [id number] Harry Hardwick, DO [address] [place] [address] [facility] Start: 06-17-2024 End: 06-17-2024 Patient encounter procedure [facility] Comment on above: Arrived Start: 05-20-2024 End: 05-20-2025 CBC panel - Blood by Automated count CBC Lab Routine Diabetes mellitus screening Expected: 05/20/2024 (Approximate), Expires: 05/20/2025 [facility] Work Phone: Comment on above: Expected: 05/20/2024 (Approximate), Expires: 05/20/2025 Start: 05-20-2024 End: 05-20-2025 Measurement of glucose 1 hour after glucose challenge for glucose tolerance test Glucose tolerance, 1 hour Lab Routine Diabetes mellitus screening Expected: 05/20/2024 (Approximate), Expires: 05/20/2025 [facility] Comment on above: Expected: 05/20/2024 (Approximate), Expires: 05/20/2025 Start: 05-20-2024 End: 05-20-2024 Patient encounter procedure 05/20/2024 9:10 AM EST Routine [facility] [address] [place] [phone] Harry Hardwick, DO [address] [place], [place] [id number] [facility] Start: 05-04-2024 End: 05-04-2024 Professional / ancillary services management 05/04/2024 1:00 PM EST Ancillary Procedure [facility] [address] [place] [phone] [facility] Start: 04-20-2024 End: 08-18-2024 [...] anatomic survey Expected: 04/20/2024 (Approximate), Expires: 04/20/2025 [facility] Comment on above: Expected: 04/20/2024 (Approximate), Expires: 04/20/2025 Start: 04-19-2024 End: 04-19-2024 Patient encounter procedure 04/19/2024 9:20 AM EST Routine [facility] [address] [phone] Harry Hardwick, DO [address] [facility] [address] [place] [address] [facility] Start: 04-02-2024 End: 04-02-2025 ABO/Rh ABO/Rh Lab Routine Missed menses , unspecified gestational age Expected: 04/02/2024 (Approximate), Expires: 04/02/2025 [facility] Comment on above: Expected: 04/02/2024 (Approximate), Expires: 04/02/2025 Start: 04-02-2024 End: 04-02-2025 Blood type and Indirect antibody screen panel - Blood Type and screen Lab Routine Missed menses , unspecified gestational age Expected: 04/02/2024 (Approximate), Expires: 04/02/2025 [facility] Work Phone: Comment on above: Expected: 04/02/2024 (Approximate), Expires: 04/02/2025 Start: 04-02-2024 End: 04-02-2025 Drugs of abuse panel - Urine by Screen method Rapid drug screen, urine Lab Routine , unspecified gestational age Encounter for supervision of normal first in first trimester Expected: 04/02/2024 (Approximate), Expires: 04/02/2025 [facility] Comment on above: Expected: 04/02/2024 (Approximate), Expires: 04/02/2025 Start: 01-25-2024 Influenza vaccination Influenza Vacc ine (#1) [facility] Start: 07-10-2023 End: 07-10-2023 Patient encounter procedure 07/10/2023 10:00 AM EST Office Visit [facility] [address] [place] [address] Crissy eWir PA [address] [place] [address] Well woman exam with routine gynecological exam [facility] Comment on above: Well woman exam with routine gynecological exam Start: 01-24-2023 Influenza vaccination Influenza Vacc ine (#1) [facility] Bacteria identified in Urine by Culture Urine culture Microbiology Routine Missed menses Ordered: 04/02/2024 [facility] Comment on above: Ordered: 04/02/2024 CBC W Auto Different ial panel - Blood CBC and differential Lab Routine Missed menses , unspecified gestational age Ordered: 04/02/2024 [facility] Comment on above: Ordered: 04/02/2024 Cytology Cervical or vaginal smear or scraping study Pap Smear Pathology and Cytology Routine Well woman exam with routine gynecological exam Ordered: 07/10/2023 [facility] Work Phone: Comment on above: Ordered: 07/10/2023 Hemoglobin A1c/Hemoglobin.total in Blood Hemoglobin A1c Lab Routine Missed menses , unspecified gestational age Ordered: 04/02/2024 [facility] Comment on above: Ordered: 04/02/2024 Hepatitis B virus surface Ag [Presence] in Serum or Plasma by Immunoassay Hepatitis B surface antigen Lab Routine Missed menses , unspecified gestational age Ordered: 04/02/2024 [facility] Comment on above: Ordered: 04/02/2024 Hepatitis C virus Ab [Presence] in Serum or Plasma by Immunoassay Hepatitis C antibody Lab Routine Missed menses , unspecified gestational age Ordered: 04/02/2024 [facility] Comment on above: Ordered: 04/02/2024 HIV-1/HIV-2 antigen/antibody combination immunoassay HIV-1 and HIV-2 antibodies Lab Routine Missed menses , unspecified gestational age Ordered: 04/02/2024 [facility] Comment on above: Ordered: 04/02/2024 Reagin Ab [Presence] in Serum by RPR RPR Lab Routine Missed menses , unspecified gestational age Ordered: 04/02/2024 [facility] Comment on above: Ordered: 04/02/2024 Rubella antibody, IgG Rubella an tibody, IgG Lab Routine Missed menses , unspecified gestational age Ordered: 04/02/2024 [facility] Comment on above: Ordered: 04/02/2024 Immunizations Immunization Date Immunization Notes Care Provider Wil hoyos 04-27-2009 influenza virus vacc ine, unspecified formulation Crissy DESIR Work Phone: [facility] Payers Date Payer Category Payer Medicaid (Managed Care) [employer] [id number] 2024 Medicaid [id number] 2023 Unknown [employer] [id number] 2023-Present [phone] [address] [address] [place] [address] [id number] 2023 Unknown [id number] 1995 Unknown [id number] 1995 Unknown [id number] 593 1995 Unknown [id number] 593 1995 Unknown [id number] 1259 1995 Unknown [id number] 1259 1995 Unknown [id number] 1259 1995 Unknown [id number] 1259 1957 Self-pay 1957 Unknown [id number] Social History Date Type Detail Facility Start: 07-09-2023 Tobacco smoking stat [facility] Never smoked tobacco [facility] Start: 07-09-2023 [...] [facility] History of Present illness Narrative 06-17-2024 THANG Rios - 06/17/2024 1:30 PM EST Note Date & Type Note Facility 06-17-2024 History of Presen t illness Narrative Reason [...] Exam Constitutional: Appearance: Normal appearance. She is normal weight. HENT: Head: Normocephalic. Cardiovascular: Rate and Rhythm: Normal rate. Pulses: Normal pulses. Pulmonary: Effort: Pulmonary effort is normal. Breath sounds: Normal breath sounds. Abdominal: Palpations: Abdomen is soft. Musculoskeletal: General: Normal range of motion. Neurological: General: No focal deficit present. Mental Status: She is alert and oriented to person, place, and time. Psychiatric: Mood and Affect: Mood normal. Behavior: Behavior normal. Thought Content: Thought content normal. Judgment: Judgment normal. Vitals and nursing note reviewed. Vitals: Estimated body mass index is 25.76 kg/m as calculated from the following: Height as of 09/16/22: 5' 2.5 . Weight as of this encounter: 143 lb 1.9 oz. BP: 102/50 Patient's last menstrual period was 11/12/2023. ASSESSMENT & PLAN ICD-10-CM 1. Second trimester Z34.92 POCT urinalysis dipstick manually resulted 2. 26 weeks gestation of Z3A.26 Return OB: Patient presents today for a routine obstetrics appointment. Patient is currently 26w2d . Patient states she is doing well but has complaints of being tired due to current . Patient has verbalizes frequent movement. labor precautions was discussed/given and patient was instructed to perform kick counts three times a day. Orders Placed This Encounter Procedures POCT urinalysis dipstick manually resulted Follow Up: Patient is to return to office in 2 week for routine OB appointment. Documented by THANG Rios on behalf of: THANG Rios documented in this encounter [facility] History of Present illness Narrative 05-20-2024 Lis MullenJEREMY - 05/20/2024 9:10 AM EST Note Date [...] nursing note reviewed. Exam conducted with a maltster present. Vitals: Estimated body mass index is [...] nursing note reviewed. Exam conducted with a maltster present. Vitals: Estimated body mass index is [...] or undercooked meat, and stay away from [facility]. Patient has also been advised to [...] [facility] History of Present illness Narrative 02-15-2024 THANG Rios - 07/10/2023 10:00 AM EST [...] nursing note reviewed. Exam conducted with a maltster present. Patient presents today for an annual exam. Patient states she is doing well and has no complaints. Pap was obtained without difficulty. Pt desires b/c and is interested in the pill. Follow Up: Patient is to return in one year for annual unless needed otherwise. Vitals: Estimated body mass index is 22.5 kg/m as calculated from the following: Height as of 23: 5' 2.5 . Weight as of this [...] of: THANG Rios documented in this encounter [facility] Evaluation note Note Date & Type Note Facility Evaluation note Diagnosis Well woman exam with routine gynecological exam Routine gynecological examination documented in this encounter [facility] Evaluation note Note Date & Type Note Facility Evaluation note Diagnosis Missed menses , unspecified gestational age Encounter for supervision of normal first in first trimester documented in this encounter [facility] Evaluation note Note Date & Type Note Facility Evaluation note Diagnosis 18 weeks gestation of Second trimester state, incidental Screening, , for anatomic survey Encounter for anatomic survey documented in this encounter [facility] Evaluation note Note Date & Type Note Facility Evaluation note Diagnosis 22 weeks gestation of Second trimester state, incidental Diabetes mellitus screening Screening for diabetes mellitus documented in this encounter [facility] Evaluation note Note Date & Type Note Facility Evaluation note Diagnosis Second trimester state, incidental 26 weeks gestation of documented in this encounter [facility] Summary Purpose Family History No Family History Records FoundNo Family History Records Found Advance Directives No Advanced Directives Records FoundNo Advanced Directives Records Found Additional Source Comments INFORMATION SOURCE (unrecogn ized section and content) DATE CREATED AUTHOR 12/03/2020 Fermin venegas DATE CREATED AUTHOR AUTHOR'S ORGANIZ ATION 06/19/2024 [facility] EPIC Reason for Visit [...] BE BASED ON THE PRIMARY CLINICAL RECORDS. [facility]. provides no warranty or guarantee [id number] the accuracy [phone] completeness of information in this [id number]
[2024-07-01 13:12] LABS: Basophils Percent Auto 0.1 % (0.2-2.0); Eosinophils Absolute Auto 0.2 10^3/uL (0.0-0.7); Eosinophils Percent Auto 2.9 % (0.9-7.0); Hematocrit 33.5 % (36.0-48.0); Immature Granulocytes Abs Auto 0.06 10^3/uL (0.00-0.03); Immature Granulocytes Pct Auto 0.7 % (0.0-0.5); Lymphocytes Absolute Auto 1.4 10^3/uL (1.2-3.8); Lymphocytes Percent Auto 16.4 % (20.5-60.0); Mean Corpuscular HGB Conc 32.8 g/dL (29.9-35.2); Mean Corpuscular Volume 88.4 fL (81.0-99.0); Monocytes Absolute Auto 0.6 10^3/uL (0.3-0.8); Neutrophils Absolute Auto 6.1 10^3/uL (1.4-6.5); Neutrophils Percent Auto 72.9 % (43.0-75.0); Platelet Count 188 10^3/uL (150-450); Red Blood Count 3.79 10^6/uL (4.20-5.40); Red Cell Distribution Width 12.9 % (11.0-15.0); White Blood Count 8.3 10^3/uL (4.0-11.0)
[2024-07-01 13:17] LABS: Cannabinoid Screen Urine NEGATIVE (NEGATIVE); Cocaine Screen Urine NEGATIVE (NEGATIVE); Phencyclidine Screen Urine NEGATIVE (NEGATIVE)
[2024-07-01 13:18] LABS: Amphetamine Screen Urine NEGATIVE (NEGATIVE); Barbiturates Screen Urine NEGATIVE (NEGATIVE); Benzodiazepines Screen Urine NEGATIVE (NEGATIVE); Buprenorphine Screen Urine NEGATIVE (NEGATIVE); Methadone Screen Urine NEGATIVE (NEGATIVE); Methamphetamines Screen Urine NEGATIVE (NEGATIVE); Opiate Screen Urine NEGATIVE (NEGATIVE); Oxycodone Screen Urine NEGATIVE (NEGATIVE); Tricyclic Antidepressant Urine NEGATIVE (NEGATIVE)
[2024-07-01 13:39] LABS: Estimated Average Glucose 103 mg/dL; Glycohemoglobin A1C 5.2 % (4.5-6.2)
[2024-07-02 06:11] LABS: HBsAg Screen Negative (Negative); HCV Ab Non Reactive (Non Reactive); HIV Ab/p24 Ag Screen Non Reactive (Non Reactive)
[2024-07-02 07:11] LABS: Rubella Antibodies, IgG 1.11 index (Immune >0.99)
[2024-07-02 12:08] LABS: Rapid Plasma Reagin, Quant Non Reactive titer (NonRea<1:1)
== END 2024-07-01 12:38 | disposition home or self-care (01) ==
LOC: LAB 12:38
PROVIDERS: Visit Provider Obstetrics & Gynecology
DX: Z34.01 Encounter for supervision of normal first pregnancy, first trimester (principal); N92.6 Irregular menstruation, unspecified
CPT/HCPCS: 36415; 80307; 83036; 85025; 86592; 86762; 86803; 86850; 86900; 86901; 87086; 87340; 87389

== ENCOUNTER 2024-07-14 17:04 | Observation (INO) | payer OTHER, SELFPAY ==
--- OUTSIDE RECORDS SUMMARY | 2024-07-14 17:12 | XMS_ITS | CCD ---
Author Organization [facility] Care Team Providers Care Hr Representative Name Role Phone DR HARYR HARDWICK Attending Unavailable MISC, DR KENNEY Primary Care Unavailable MULU, DR MCDONALD Admitting Unavailable MISC, DR KENNEY Primary Care Unavailable MULU, DR MCDONALD Attending Unavailable MULU, DR MCDONALD Admitting Unavailable MULU, DR MCDONALD Consulting Unavailable MULU, DR MCDONALD Consulting Unavailable MULU, DR MCDONALD Attending Unavailable MULU, DR MCDONALD Admitting Unavailable ZIEBER, DR KODAK Anedrson Consulting Unavailable Unavailable Primary Care Provider UnavailCRISSY Shaw Attending Unavailable HARRY HARDWICK Attending Unavailable CRISSY WEIR Attending Unavailable HARRY HARDWICK Attending Unavailable Medications Current Medications Medication Drug Class(es) Dates Sig (Normalized) Sig (Original) multivitamin () 27-0.8 MG tablet (14 sources) Start: 04-15-2024 take 1 tablet by mouth once daily multivitamin () 27-0.8 MG tablet Indications: , unspecified gestational age Take 1 tablet by mouth Daily 30 tablet 11 04/15/2024 Active Start: 03-18-2024 take 1 tablet by mounika once daily multivitamin () 27-0.8 MG tablet TAKE 1 TABLET BY MOUTH ONCE DAILY FOR 30 DAYS 03/18/2024 Active ondansetron 4 mg disintegrating oral tablet (14 sources) Serotonin-3 Receptor Antagonist Start: 03-18-2024 take [...] Translations: [Irregular menstruation, unspecified] 04-02-2024 Chronic Other complications of (2 sources) size does not accord with dates; Translations: [Uterine size-date discrepancy, unspecified trimester] 07-01-2024 Episodic Other and delivery including normal (20 sources) ; Translations: [Encounter for supervision of normal , unspecified, unspecified trimester] Onset: 04-20-2024 04-02-2024 Episodic Other screening for suspected conditions (not mental disorders or infectious disease) (20 sources) Encounter for screening for malignant neoplasm of cervix; Translations: [Patient encounter status] Onset: 10-18-2020 Episodic Residual codes; unclassified (15 sources) Gestation period, 18 weeks; Translations: [18 weeks gestation of ] Onset: 04-20-2024 04-20-2024 Episodic Residual codes; unclassified (2 sources) Gestation period, 22 weeks; Translations: [22 weeks gestation of ] 05-20-2024 Episodic Residual codes; unclassified (2 sources) Gestation period, 26 weeks; Translations: [26 weeks gestation of ] 06-17-2024 Episodic Residual codes; unclassified (2 sources) Gestation period, 28 weeks; Translations: [28 weeks gestation of ] 07-01-2024 Episodic Past or Other Problems Problem Classification Problem Date Documented Da te Episodic/Chronic Nonmalignant breast conditions (4 sources) Unspecified lump in the left breast, unspecified quadrant; Translations: [UNS LUMP IN LT BREAST UNS QUADRANT] Onset: 12-21-2019 Episodic Results Test Name Value Interpretation Reference Range Facility ALL TYPE AND SCREENon 2024 ABO and Rh group Nom (Bld) Blood group [facility]) [facility] , [facility] Urinalysis macro (dipstick) panel (U)on 07-01-2024 Bilirubin, UA Negative Negative - 4(70) +++ mg/dL [facility] Blood, UA Negative Negative - 50 Quentin/mcL [facility] Clarity, UA Clear [facility] Color, UA Yellow [facility] Glucose, UA Negative Negative - 2000(110) ++++ mg/dL [facility] Interpretation and review of laboratory results Abnormal [facility] Ketones, UA Negative Negative - 160(16) ++++ mg/dL [facility] Leukocytes, UA Trace Negative - 500+++ Nagelica/mcL [facility] Nitrite, UA Negative Negative - Positive [facility] pH, UA 7 5 - 9 [facility] Health[facility] e Protein, UA Trace Negative - 2000(20) ++++ mg/dL [facility] Spec Grav, UA 1.02 1 - 1.03 [facility] Urobilinogen, UA 0.2 0.2 - 12 mg/dL [facility] ALL CBC WITH AUTO DIFFon BASOPHILS ABSOLUTE AUTO 0 [facility] Basophils/100 WBC (Bld) 0.1 % Low 0.2 - 2.0 % [facility] Eosinophils/100 WBC (Bld) 3.2 % 0.9 - 7.0 % [facility] Erythrocyte distribution width (RBC) [Ratio] 13.3 % 11.0 - 15.0 % [facility] Hematocrit (Bld) [Volume fraction] 34.7 % Low 36.0 - 48.0 % [facility] Hem[facility] (Bld) [Mass/Vol] 11.3 g/dL Low 12.0 - 16.0 g/dL [facility] IMMATURE GRANULOCYTES ABS AUTO 0.07 High [facility] Immature granulocytes/100 WBC (Bld) 0.8 % High 0.0 - 0.5 % [facility] Interpretation and review of laboratory results Abnormal [facility] LYMPHOCYTES ABSOLUTE AUTO 1.5 [facility] Lymphocytes/100 WBC (Bld) 17 % Low 20.5 - 60.0 % [facility] MCH (RBC) [Entitic mass] 29.4 pg 26.7 - 34.0 pg [facility] MCHC (RBC) [Mass/Vol] 32.6 g/dL 29.9 - 35.2 g/dL [facility] MCV (RBC) [Entitic vol] 90.4 fL 81.0 - 99.0 fL [facility] MONOCYTES ABSOLUTE AUTO 0.7 [facility] Monocytes/100 WBC (Bld) 7.5 % 1.7 - 12.0 % [facility] NEUTROPHILS ABSOLUTE AUTO 6.3 [facility] Neutrophils/100 WBC (Bld) 71.4 % 43.0 - 75.0 % [facility] Platelet mean volume (Bld) [Entitic vol] 11.4 fL 9.5 - 13.5 fL [facility] EO # 0.3 [facility] Healthcar e TB PLT 194 [facility] TB RBC 3.84 Low [facility] WBC 8.8 [facility] e [facility] Urinalysis macro (dipstick) panel (U)on 06-17-2024 Bilirubin, UA Negative Negative - 4(70) +++ mg/dL [facility] Blood, UA Negative Negative - 50 Quentin/mcL [facility] Healthcare Clarity, UA Clear [facility] Healthca re Color, UA Yellow [facility] Glucose, UA Positive Negative - 1999(110) ++++ mg/dL [facility] Interpretation and review of laboratory results Abnormal [facility] Ketones, UA Negative Negative - 160(16) ++++ mg/dL [facility] Leukocytes, UA Negative Negative - 500+++ Angelica/mcL [facility] Nitrite, UA Trace Negative - Positive [facility] pH, UA 7.5 5 - 9 [facility] e Protein, UA Positive Negative - 1999(20) ++++ mg/dL [facility] Spec Grav, UA 1.02 1 - 1.03 [facility] Urobilinogen, UA 0.2 0.2 - 12 mg/dL [facility] Urinalysis macro (dipstick) panel (U)on 05-20-2024 Bilirubin, UA Negative Negative - 4(70) +++ mg/dL [facility] Blood, UA Negative Negative - 50 Quentin/mcL [facility] Healthcare Clarity, UA Clear [facility] Healthca re Color, UA Yellow [facility] Glucose, UA Negative Negative - 1999(110) ++++ mg/dL [facility] Interpretation and review of laboratory results Abnormal [facility] Ketones, UA Negative Negative - 160(16) ++++ mg/dL [facility] Leukocytes, UA Trace Negative - 500+++ Angelica/mcL [facility] Nitrite, UA Negative Negative - Positive [facility] pH, UA 7 5 - 9 [facility] Health[facility] e Protein, UA Negative Negative - 1999(20) ++++ mg/dL [facility] Healthcare Spec Grav, UA 1.025 1 - 1.03 [facility] Urobilinogen, UA 0.2 0.2 - 12 mg/dL [facility] Urinalysis macro (dipstick) panel (U)on 04-21-2024 Bilirubin, UA Negative Negative - 4(70) +++ mg/dL [facility] Blood, UA Negative Negative - 50 Quentin/mcL [facility] Clarity, UA Clear [facility] Color, UA Yellow [facility] Glucose, UA Negative Negative - 1999(110) ++++ mg/dL [facility] Interpretation and review of laboratory results Normal [facility] Ketones, UA Negative Negative - 160(16) ++++ mg/dL [facility] Leukocytes, UA Negative Negative - 500+++ Angelica/mcL [facility] Nitrite, UA Negative Negative - Positive [facility] pH, UA 7 5 - 9 [facility] Protein, UA Negative Negative - 1999(20) ++++ mg/dL [facility] Spec Grav, UA 1.025 1 - 1.03 [facility] Urobilinogen, UA 0.2 0.2 - 12 mg/dL [facility] HCG ( test) Ql (U)o n 04-02-2024 Interpretation and review of laboratory results Abnormal [facility] Preg Test, Ur Positive Negative [facility] Urinalysis macro (dipstick) panel (U)on 04-02-2024 Bilirubin, UA Negative Negative - 4(70) +++ mg/dL [facility] Blood, UA Negative Negative - 50 Quentin/mcL [facility] Healthcare Clarity, UA Clear [facility] Healthca re Color, UA Yellow [facility] Glucose, UA Negative Negative - 1999(110) ++++ mg/dL [facility] Interpretation and review of laboratory results Normal [facility] Ketones, UA Negative Negative - 160(16) ++++ mg/dL [facility] Leukocytes, UA Negative Negative - 500+++ Angelica/mcL [facility] Healthcare Nitrite, UA Negative Negative - Positive [facility] pH, UA 5.5 5 - 9 [facility] Health[facility] e Protein, UA Negative Negative - 1999(20) ++++ mg/dL [facility] Spec Grav, UA 1.02 1 - 1.03 [facility] Urobilinogen, UA 1.0 0.2 - 12 mg/dL [facility] PAP IG RFX APTIMA HPVon 06-0 . . Normal [facility] Comment on above: Result Comment: Perf ormed at: WB Performed By: #### P APHRA #### [facility] [address] [place] [address] Nesha Hays DIAGNOSIS: Comment Normal [facility] Comment on above: Result Comment: NEGA TIVE FOR INTRAEPITHELIAL LESION OR MALIGNANCY. Performed at: WB Performed By: #### P APHRA #### [facility] [address] [place] [address] Nesha Hays HPV Aptima Negative Normal Negative [facility] Comment on above: Result Comment: This nucleic acid amplification test detects fourteen high-risk HPV types (16,18,31,33,35,39,45,51,52,56,58,59,66,68) without differentiation. Performed at: =G Performed By: #### P APHRA #### [facility] [address] [place] [address] Nesha Hays Note: Comment Normal [facility] Comment on above: Result Comment: The [...] WB Performed By: #### P APHRA #### [facility] [address] [place] [address] Nesha Hays Performed by: Comment Normal [facility] Comment on above: Result Comment: Erick Medrano Pattern Worker (ASCP) Performed at: WB Performed By: #### P APHRA #### [facility] [address] [place] [address] Nesha Hays Specimen adequacy: Comment Normal [facility] Comment on above: Result Comment: Sati sfactory for evaluation. Endocervical and/or squamous metaplastic cells (endocervical component) are present. Performed at: WB Performed By: #### P APHRA #### [facility] [address] [place] [address] Nesha Hays US BREAST LEFT LIMITEDon US BREAST LEFT LIMITED Patient: LALITHA HANSEN Exam Date: 12/21/2019 : 1995 Gender:F Ordering : DR HARRY HARDWICK . Admission #: [id number] Family : Order #: [id number] CLICK HERE TO VIEW EXAM RADIOLOGY REPORT [...] Jimenez M.D. on 12/21/2019 at 14:46 Normal [facility] Vital Signs Date Time Vital Sign Value Performing Clinician Rocki lity 07-01-2024 12:08-0500 Body mass index (BMI) [Ratio] 26.35 kg/m2 Harry Mulu DO Work Phone: [facility] 07-01-2024 12:08-0500 Body weight 66.41 kg Harry Mulu DO Work Phone: [facility] 07-01-2024 12:08-0500 Diastolic blood pressure 70 mm[Hg] Harry Mulu DO Work Phone: [facility] 07-01-2024 12:08-0500 Systolic blood pressure 110 mm[Hg] Harry Mulu DO Work Phone: [facility] 06-17-2024 13:33-0500 Body mass index (BMI) [Ratio] 25.76 kg/m2 Crissy DESIR Work Phone: [facility] 06-17-2024 13:33-0500 Body weight 64.92 kg Crissy DESIR Work Phone: [facility] 06-17-2024 13:33-0500 Diastolic blood pressure 50 mm[Hg] Crissy DESIR Work Phone: [facility] 06-17-2024 13:33-0500 Systolic blood pressure 102 mm[Hg] Crissy DESIR Work Phone: [facility] 05-20-2024 09:35-0500 Body mass index (BMI) [Ratio] 24.14 kg/m2 Harry Mulu DO Work Phone: [facility] 05-20-2024 09:35-0500 Body weight 60.84 kg Harry Mulu DO Work Phone: [facility] 05-20-2024 09:35-0500 Diastolic blood pressure 60 mm[Hg] Harry Mulu DO Work Phone: [facility] 05-20-2024 09:35-0500 Systolic blood pressure 100 mm[Hg] Harry Mulu DO Work Phone: [facility] 04-20-2024 13:14-0500 Body mass index (BMI) [Ratio] 23.22 kg/m2 Harry Mulu DO Work Phone: [facility] 04-20-2024 13:14-0500 Body weight 58.51 kg Harry Mulu DO Work Phone: [facility] 04-20-2024 13:14-0500 Diastolic blood pressure 68 mm[Hg] Harry Mulu DO Work Phone: [facility] 04-20-2024 13:14-0500 Systolic blood pressure 108 mm[Hg] Harry Mulu DO Work Phone: [facility] 07-10-2023 10:36-0500 Body mass index (BMI) [Ratio] 22.5 kg/m2 Crissy DESIR Work Phone: [facility] 07-10-2023 10:36-0500 Body weight 56.7 kg Crissy DESIR Work Phone: [facility] 07-10-2023 10:36-0500 Diastolic blood pressure 62 mm[Hg] Crissy DESIR Work Phone: [facility] 07-10-2023 10:36-0500 Systolic blood pressure 100 mm[Hg] Crissy DESIR Work Phone: [facility] Encounters Encounter Date Encounter Type Care Provider Facility Start: 07-01-2024 End: 07-01-2024 Bamboo flowsheet Harry Mulu DO Work Phone: [facility] Start: 07-01-2024 End: 07-01-2024 Bamboo flowsheet Harry Mulu DO Work Phone: [facility] Start: 07-01-2024 End: 07-01-2024 [facility] Result Encounter Harry Mulu DO Work Phone: [facility] External Department Unsolicited Start: 07-01-2024 End: 07-01-2024 ambulatory HARRY MULU Not Available Start: 07-01-2024 End: 07-01-2024 Office outpatient visit 15 minutes Harry Mulu DO Work Phone: [facility] Comment on above: Second trimester pre gnancy; 28 weeks gestation of ; size inconsistent with dates Start: 06-17-2024 End: 06-17-2024 Bamboo flowsheet Crissy DESIR Work Phone: [facility] Start: 06-17-2024 End: 06-17-2024 Bamboo flowsheet Crissy DESIR Work Phone: [facility] Start: 06-17-2024 End: 06-17-2024 [facility] Result Encounter Harry Mulu DO Work Phone: [facility] External Department Unsolicited Start: 06-17-2024 End: 06-17-2024 Office outpatient visit 15 minutes Crissy DESIR Work Phone: [facility] Comment on above: Second trimester pre gnancy; 26 weeks gestation of Start: 06-17-2024 End: 06-17-2024 ambulatory CRISSY WEIR Not Available Start: 05-20-2024 End: 05-20-2024 Bamboo flowsheet Harry Mulu DO Work Phone: [facility] Start: 05-20-2024 End: 05-20-2024 Bamboo flowsheet Harry Mulu DO Work Phone: [facility] Start: 05-20-2024 End: 05-20-2024 ambulatory HARRY HARDWICK Not Available Start: 05-20-2024 End: 05-20-2024 Office outpatient visit 15 minutes Harry Mulu DO Work Phone: [facility] Comment on above: 22 weeks gestation o f ; Second trimester ; Diabetes mellitus screening Start: 04-20-2024 End: 04-20-2024 Office outpatient visit 15 minutes Harry Mulu DO Work Phone: [facility] Comment on above: 18 weeks [...] Patient encounter procedure Crissy DESIR Work Phone: [facility] Start: 07-10-2023 End: 07-10-2023 Periodic preventive [...] Date Procedure Procedure Detail Performing Clinician Start: 07-01-2024 Antibody screen Harry Basilia salazario DO Work Phone: Start: 07-01-2024 ALL TYPE AND SCREEN Cor ey Mulu DO Work Phone: Start: 07-01-2024 Urnls dip stick/tabl et rgnt non-auto w/o micrscp Harry Mulu DO Work Phone: Start: 06-17-2024 Urnls dip stick/tabl et rgnt [...] Treatment Date Care Activity Detail Author Start: 07-22-2024 End: 07-22-2024 Patient encounter procedure 07/22/2024 3:20 PM EST Routine [facility] [address] [place] [address] Crissy Weir PA [address] [place] [address] [facility] Start: 07-22-2024 End: 07-22-2024 Professional / ancillary services management 07/22/2024 2:30 PM EST Ancillary Procedure [facility] [address] [place] [address] [facility] Start: 07-13-2024 End: 07-13-2024 Patient encounter procedure 07/13/2024 11:00 AM EST Office Visit [facility] [address] [place] [phone] Crissy Weir PA [address] [place] [address] [facility] Start: 07-01-2024 End: 07-01-2025 US for US OB follow up transabdominal approach Imaging Routine size inconsistent with dates Expected: 07/01/2024, Expires: 07/01/2025 [facility] Work Phone: Comment on above: Expected: 07/01/2024 , Expires: 07/01/2025 Start: 07-01-2024 End: 07-01-2024 Patient encounter procedure 07/01/2024 11:50 AM EST Routine [facility] [address] [place] [phone] Harry Hardwick DO [address] [place] [address] [facility] Start: 06-17-2024 End: 06-17-2024 Patient encounter procedure [facility] Comment on above: Arrived Start: 05-20-2024 End: 05-20-2025 CBC panel - Blood by Automated count CBC Lab Routine Diabetes mellitus screening Expected: 05/20/2024 (Approximate), Expires: 05/20/2025 [facility] Work Phone: Comment on above: Expected: 05/20/2024 (Approximate), Expires: 05/20/2025 Start: 05-20-2024 End: 05-20-2025 Measurement of glucose 1 hour after glucose challenge for glucose tolerance test Glucose tolerance, 1 hour Lab Routine Diabetes mellitus screening Expected: 05/20/2024 (Approximate), Expires: 05/20/2025 [facility] Comment on above: Expected: 05/20/2024 (Approximate), Expires: 05/20/2025 Start: 05-20-2024 End: 05-20-2024 Patient encounter procedure 05/20/2024 9:10 AM EST Routine [facility] [address] [place] [phone] Harry Hardwick, DO [address] [place] [address] [facility] Start: 05-04-2024 End: 05-04-2024 Professional / ancillary services management 05/04/2024 1:00 PM EST Ancillary Procedure [facility] [address] [place] [phone] [facility] Start: 04-20-2024 End: 08-18-2024 Alpha fetoprotein, maternal Alpha fetoprotein, maternal Lab Routine 18 weeks gestation of Second trimester Expected: 04/20/2024 (Approximate), Expires: 08/18/2024 [facility] Work Phone: Comment on above: [...] AM EST Routine [facility] [address] [facility] [place] [phone] Harry Hardwick, DO [address] [place] [address] [facility] Start: 04-02-2024 End: 04-02-2025 [...] first trimester Expected: 04/02/2024 (Approximate), Expires: 04/02/2025 [facility] Comment on above: Expected: 04/02/2024 (Approximate), Expires: 04/02/2025 Start: 01-25-2024 Influenza vaccination Influenza Vacc ine (#1) [facility] Start: 07-10-2023 End: 07-10-2023 Patient encounter procedure 07/10/2023 10:00 AM EST Office Visit [facility] [address] [place] [phone] Crissy Weir PA [address] [place], [place] [id number] Well woman exam with routine gynecological exam [facility] Comment on above: Well woman exam with routine gynecological exam Start: 01-24-2023 Influenza vaccination Influenza Vacc ine (#1) [facility] Bacteria identified in Urine by Culture Urine culture Microbiology Routine Missed menses Ordered: 04/02/2024 [facility] Comment on above: Ordered: 04/02/2024 CBC W Auto Different ial panel - Blood CBC and differential Lab Routine Missed menses , unspecified gestational age Ordered: 04/02/2024 [facility] Comment on above: Ordered: 04/02/2024 Cytology Cervical or vaginal smear or scraping study Pap Smear Pathology and Cytology Routine Well woman exam with routine gynecological exam Ordered: 07/10/2023 [facility] Work Phone: Comment on above: Ordered: 07/10/2023 Hemoglobin A1c/Hemoglobin.total in Blood Hemoglobin A1c Lab Routine Missed menses , unspecified gestational age Ordered: 04/02/2024 [facility] Comment on above: Ordered: 04/02/2024 Hepatitis B virus surface Ag [Presence] in Serum or Plasma by Immunoassay Hepatitis B surface antigen Lab Routine Missed menses , unspecified gestational age Ordered: 04/02/2024 [facility] Comment on above: Ordered: 04/02/2024 Hepatitis C virus Ab [Presence] in Serum or Plasma by Immunoassay Hepatitis C antibody Lab Routine Missed menses , unspecified gestational age Ordered: 04/02/2024 [facility] Comment on above: Ordered: 04/02/2024 HIV-1/HIV-2 antigen/antibody combination immunoassay HIV-1 and HIV-2 antibodies Lab Routine Missed menses , unspecified gestational age Ordered: 04/02/2024 [facility] Comment on above: Ordered: 04/02/2024 Reagin Ab [Presence] in Serum by RPR RPR Lab Routine Missed menses , unspecified gestational age Ordered: 04/02/2024 [facility] Comment on above: Ordered: 04/02/2024 Rubella antibody, IgG Rubella an tibody, IgG Lab Routine Missed menses , unspecified gestational age Ordered: 04/02/2024 [facility] Comment on above: Ordered: 04/02/2024 Immunizations Immunization Date Immunization Notes Care Provider Wil hoyos 04-27-2009 influenza virus vacc ine, unspecified formulation Crissy DESIR Work Phone: [facility] Payers Date Payer Category Payer Medicaid (Managed Care) [employer] [id number] 2024 Medicaid [id number] 2023 Unknown [employer] [id number] 2023-Present [phone] [address] [address] [place] [address] [id number] 2023 Unknown [id number] 1995 Unknown [id number] 593 1995 Unknown [id number] 593 1995 Unknown [id number] 593 1995 Unknown [id number] 1259 1995 Unknown [id number]. 1259 1995 Unknown [id number]. 1259 1995 Unknown [id number]. 1259 1995 Unknown [id number] 1259 1957 Self-pay 1957 Unknown [id number] Social History Date Type Detail Facility Start: 07-09-2023 Tobacco smoking stat [facility] Never smoked tobacco [facility] Start: 07-09-2023 End: 05-20-2024 Alcohol intake Lifetime non-drinker (finding) [facility] Start: 1995 Sex Assigned At Not on file [facility] Start: 07-09-2023 Gender identity Not on file [facility] Start: 07-09-2023 History of Social function [facility] Healthcare Start: 1995 Sex Assigned At Female N [facility] Start: 07-09-2023 Gender identity Identifies as female gender (finding) [facility] Start: 12-30-2023 [facility] Clinical Notes 07-10-2023 to 07-01-2024 Danette Johnston, COMPUTER REPAIR ENGINEER - 07/01/2024 11:50 AM THANG Jalloh - 06/17/2024 1:30 PM Arcadio Mullen, JEREMY - 05/20/2024 9:10 AM Arcadio Mullen, JEREMY - 04/20/2024 11:00 AM EST Note Date & Type Note Facility 07-01-2024 History of Presen t illness Narrative Reason [...] SYSTEMS Review of Systems: Review of Systems All other systems reviewed and are negative. OBJECTIVE Objective: Physical Exam Constitutional: Appearance: Normal [...] nursing note reviewed. Exam conducted with a director hris present. Vitals: Estimated body mass index is 26.35 kg/m as calculated from the following: Height as of 09/16/22: 5' 2.5 . Weight as of this encounter: 146 lb 6.4 oz. BP: 110/70 Patient's last menstrual period was 11/12/2023. ASSESSMENT & PLAN ICD-10-CM 1. Second trimester Z34.92 POCT urinalysis dipstick manually resulted 2. 28 weeks gestation of Z3A.28 Patient presents today for a routine obstetrics appointment. Patient is currently 28w2d with a Estimated Date of Delivery: 09/21/24. Patient desires to no go past 40 weeks gestation. Patient will tentatively have IOL 09/21/24. Patient will have labs drawn prior to next appointment. Patient given growth scan to have performed prior to next appointment. Patient to return to clinic in 2 weeks for routine OB care. Documented by Danette Johnston LPN on behalf of: Harry Hardwick DO documented in this encounter [facility] 06-17-2024 History of Presen t illness Narrative [...] of: THANG Rios documented in this encounter [facility] 05-20-2024 History of Presen t illness Narrative [...] nursing note reviewed. Exam conducted with a director hris present. Vitals: Estimated body mass index is [...] Harry Hardwick DO documented in this encounter [facility] 04-20-2024 History of Presen t illness Narrative [...] nursing note reviewed. Exam conducted with a director hris present. Vitals: Estimated body mass index is [...] Harry Hardwick DO documented in this encounter [facility] 04-02-2024 History of Presen t illness Narrative [...] or undercooked meat, and [facility]. Patient has also been advised to [...] Jesusita Ramos LPN documented in this encounter [facility] 07-10-2023 History of Presen t illness Narrative [...] nursing note reviewed. Exam conducted with a director hris present. Patient presents today for an annual [...] in this encounter [facility] Evaluation note Diagnosis Well woman exam with routine gynecological exam Routine gynecological examination documented in this encounter [facility]* Diagnosis Missed menses , unspecified gestational age Encounter for supervision of normal first in first trimester documented in this encounter [facility]* Diagnosis 18 weeks gestation of Second trimester state, incidental Screening, , for anatomic survey Encounter for anatomic survey documented in this encounter [facility]* Diagnosis 22 weeks gestation of Second trimester state, incidental Diabetes mellitus screening Screening for diabetes mellitus documented in this encounter [facility]* Diagnosis Second trimester state, incidental 26 weeks gestation of documented in this encounter [facility]* Diagnosis Second trimester state, incidental 28 weeks gestation of size inconsistent with dates documented in this encounter [facility] Summary Purpose Family History No Family History Records FoundNo Family History Records Found Advance Directives No Advanced Directives Records FoundNo Advanced Directives Records Found Additional Source Comments INFORMATION SOURCE (unrecogn ized section and content) DATE CREATED AUTHOR 12/03/2020 [facility] DATE CREATED AUTHOR AUTHOR'S ORGANIZ ATION 07/03/2024 [facility] EPIC Reason for Visit [...] BE BASED ON THE PRIMARY CLINICAL RECORDS. [facility] [employer] provides no warranty or guarantee of the accuracy or completeness of information in this document.
[2024-07-14 17:26] VITALS: BP 102/62; PULSE 74
[2024-07-14 17:29] LABS: Bilirubin Urine NEGATIVE (NEGATIVE); Blood Urine NEGATIVE (NEGATIVE); Clarity Urine SL CLOUDY (CLEAR); Color Urine YELLOW (YELLOW); Glucose Urine UA 100 mg/dL (NEGATIVE); Ketones Urine TRACE mg/dL (NEGATIVE); Leukocyte Esterase Urine NEGATIVE (NEGATIVE); Nitrite Urine NEGATIVE (NEGATIVE); Protein Urine TRACE mg/dL (NEG/TRACE); Specific Gravity Urine 1.025 (1.005-1.025); Urobilinogen Urine 0.2 EU/dL (0.2-1.0); pH Urine 6.5 (5.0-9.0)
[2024-07-14 17:33] LABS: Urine Microscopic Indicated NO
== END 2024-07-14 18:07 | disposition home or self-care (01) ==
PROVIDERS: Admitting Provider Obstetrics & Gynecology; Visit Provider Obstetrics & Gynecology
DX: O99.891 Other specified diseases and conditions complicating pregnancy (principal); R10.31 Right lower quadrant pain; Z3A.30 30 weeks gestation of pregnancy
CPT/HCPCS: 59025; 81003; G0378; G0379

== ENCOUNTER 2024-08-24 14:32 | Outpatient (REF) | payer OTHER, SELFPAY | END 2024-08-24 14:33 | disposition home or self-care (01) | LOC: LAB 14:32 | PROVIDERS: Visit Provider Physician Assistant | DX: Z34.93 Encounter for supervision of normal pregnancy, unspecified, third trimester (principal) | CPT/HCPCS: 36415; 87081 ==

== ENCOUNTER 2024-09-12 18:11 | Inpatient (IN) | payer OTHER, SELFPAY ==
--- OUTSIDE RECORDS SUMMARY | 2024-09-12 18:15 | XMS_ITS | CCD ---
Author Organization [facility] Care Team Providers Care Transit Driver Name Role Phone DR HARRY HARDWICK Attending Unavailable MISC, DR KENNEY Primary Care Unavailable MULU, DR MCDONALD Admitting Unavailable MISC, DR KENNEY Primary Care Unavailable MULU, DR MCDONALD Attending Unavailable MULU, DR MCDONALD Admitting Unavailable MULU, DR MCDONALD Consulting Unavailable MULU, DR MCDONALD Consulting Unavailable MULU, DR MCDONLAD Attending Unavailable MULU, DR MCDONALD Admitting Unavailable ZIEBER, DR KODAK Anderson Consulting Unavailable Unavailable Primary Care Provider UnavailHARRY Medrano Attending Unavailable CRISSY WEIR Attending Unavailable MULU, HARRY Attending Unavailable CRISSY WEIR Attending Unavailable HARRY HARDWICK Attending Unavailable CRISSY WEIR Attending Unavailable HARRY HARDWICK Attending Unavailable HARRY HARDWICK Attending Unavailable Medications Current Medications Medication Drug Class(es) Dates Sig (Normalized) Sig (Original) multivitamin () 27-0.8 MG tablet (20 sources) Start: 04-15-2024 take 1 tablet by [...] Active ondansetron 4 mg disintegrating oral tablet (20 sources) Serotonin-3 Receptor Antagonist Start: 03-18-2024 take [...] unspecified, unspecified trimester] Onset: 04-20-2024 04-02-2024 Episodic Residual codes; unclassified (2 sources) Gestation period, 22 weeks; Translations: [22 weeks gestation of ] 05-20-2024 Episodic Residual codes; unclassified (2 sources) Gestation period, 26 weeks; Translations: [26 weeks gestation of ] 06-17-2024 Episodic Residual codes; unclassified (2 sources) Gestation period, 28 weeks; Translations: [28 weeks gestation of ] 07-01-2024 Episodic Residual codes; unclassified (2 sources) Gestation period, 31 weeks; Translations: [31 weeks gestation of ] 07-22-2024 Episodic Residual codes; unclassified (1 source) Gestation period, 34 weeks; Translations: [34 weeks gestation of ] 08-10-2024 Episodic Residual codes; unclassified (2 sources) Gestation period, 37 weeks; Translations: [37 weeks gestation of ] 08-31-2024 Episodic Residual codes; unclassified (2 sources) Gestation period, 38 weeks; Translations: [38 weeks gestation of ] 09-07-2024 Episodic Past or Other Problems Problem Classification Problem Date Documented Da te Episodic/Chronic Nonmalignant breast conditions (4 sources) Unspecified lump in the left breast, unspecified quadrant; Translations: [UNS LUMP IN LT BREAST UNS QUADRANT] Onset: 12-21-2019 Episodic Other screening for suspected conditions (not mental disorders or infectious disease) (20 sources) Encounter for screening for malignant neoplasm of cervix; Translations: [Patient encounter status] Onset: 10-18-2020 Episodic Residual codes; unclassified (20 sources) Gestation period, 18 weeks; Translations: [18 weeks gestation of ] Onset: 04-20-2024 04-20-2024 Episodic Results Test Name Value Interpretation Reference Range Facility Urinalysis macro (dipstick) panel (U)on 09-07-2024 Bilirubin, UA Negative Negative - 4(70) +++ mg/dL [facility] Blood, UA Negative Negative - 50 Quentin/mcL [facility] Clarity, UA Clear [facility] Color, UA Yellow [facility] Glucose, UA Negative Negative - 1999(110) ++++ mg/dL [facility] Interpretation and review of laboratory results Abnormal [facility] Ketones, UA Positive Negative - 160(16) ++++ mg/dL [facility] Comment on above: trace Leukocytes, UA Positive Negative - 500+++ Angelica/mcL [facility] Comment on above: small Nitrite, UA Negative Negative - Positive [facility] pH, UA 6.5 5 - 9 [facility] Protein, UA Positive Negative - 1999(20) ++++ mg/dL [facility] Comment on above: 30 Spec Grav, UA 1.03 1 - 1.03 [facility] Urobilinogen, UA 1.0 0.2 - 12 mg/dL [facility] Urinalysis macro (dipstick) panel (U)on 08-31-2024 Bilirubin, UA Negative Negative - 4(70) +++ mg/dL [facility] Blood, UA Negative Negative - 50 Quentin/mcL [facility] Clarity, UA Clear [facility] Color, UA Yellow [facility] Glucose, UA Negative Negative - 1999(110) ++++ mg/dL [facility] Interpretation and review of laboratory results Abnormal [facility] Ketones, UA Positive Negative - 160(16) ++++ mg/dL [facility] Comment on above: trace Leukocytes, UA Trace Negative - 500+++ Angelica/mcL [facility] Nitrite, UA Negative Negative - Positive [facility] pH, UA 6 5 - 9 [facility] Protein, UA Trace Negative - 1999(20) ++++ mg/dL [facility] Spec Grav, UA 1.03 1 - 1.03 [facility] Urobilinogen, UA 0.2 0.2 - 12 mg/dL [facility] ALL MISCELLANEOUS TESTon MISCELLANEOUS TEST COMMENT . [facility]care Comment on above: Test Ordered: [id number] Strep Gp B Culture+Rflx Strep Gp B Culture+Rflx Negative CB Reference Range: Negative Centers for Disease Control and Prevention (CDC) and [place] [employer] of [employer]stetricians and Gynecologists (ACOG) guidelines for prevention of group B streptococcal (GBS) disease specify co-collection of a vaginal and rectal swab specimen to maximize sensitivity of GBS detection. Per the CDC and ACOG, swabbing both the lower vagina and rectum substantially increases the yield of detection compared with sampling the vagina alone. Penicillin G, ampicillin, or cefazolin are indicated for intrapartum prophylaxis of GBS colonization. Reflex susceptibility testing should be performed prior to use of clindamycin only on GBS isolates from penicillin- allergic women who are considered a high risk for anaphylaxis. Treatment with vancomycin without additional testing is warranted if resistance to clindamycin is noted. Performed at: [facility] [address] [id number] Corporate Statistical Financial Analyst: Raghavendra Flores PhD, Phone: [phone] [id number] Group B Streptococcus Colonization Detection Culture With Re [facility] Urinalysis macro (dipstick) panel (U)on 08-24-2024 Bilirubin, UA Negative Negative - 4(70) +++ mg/dL [facility] Blood, UA Negative Negative - 50 Quentin/mcL [facility] Clarity, UA Clear [facility] re Color, UA Yellow [facility] Glucose, UA Negative Negative - 1999(110) ++++ mg/dL [facility] Interpretation and review of laboratory results Normal [facility] Ketones, UA Negative Negative - 160(16) ++++ mg/dL [facility] Leukocytes, UA Trace Negative - 500+++ Angelica/mcL [facility] Nitrite, UA Negative Negative - Positive [facility] pH, UA 6 5 - 9 [facility] Protein, UA Trace Negative - 1999(20) ++++ mg/dL [facility] Spec Grav, UA 1.03 1 - 1.03 [facility] care Urobilinogen, UA 0.2 0.2 - 12 mg/dL [facility] Urinalysis macro (dipstick) panel (U)on 08-10-2024 Bilirubin, UA Negative Negative - 4(70) +++ mg/dL [facility] Blood, UA Negative Negative - 50 Quentin/mcL [facility] Clarity, UA Clear [facility] Color, UA Yellow [facility] Glucose, UA Negative Negative - 1999(110) ++++ mg/dL [facility] Interpretation and review of laboratory results Abnormal [facility] Ketones, UA Negative Negative - 160(16) ++++ mg/dL [facility] Leukocytes, UA Positive Negative - 500+++ Angelica/mcL [facility] Comment on above: small Nitrite, UA Negative Negative - Positive [facility] pH, UA 7 5 - 9 [facility] Protein, UA Positive Negative - 1999(20) ++++ mg/dL [facility] Comment on above: 30 Spec Grav, UA 1.025 1 - 1.03 [facility] Urobilinogen, UA 0.2 0.2 - 12 mg/dL [facility] US OB FOLLOW UP TRANSABDOMIN AL APPROACHon 07-22-2024 US OB FOLLOW UP TRANSABDOMINAL APPROACH EXAM: US OB FOLLOW UP TRANSABDOMINAL APPROACH HISTORY: Inconsistent size. COMPARISON: OB ultrasound 05/04/2024. TECHNIQUE: Two-dimensional transabdominal grayscale ultrasound imaging of the pelvis was performed. FINDINGS: Gestation: Single Presentation: Cephalic Cardiac Activity: 141 beats per minute Placental Location: Posterior with no sonographic abnormalities identified. Cervical canal: Not visualized Amniotic Fluid Index: 18.4 cm MEASUREMENTS: BPD: 7.7 cm EGA: 30 weeks 5 days HC: 29.0 cm EGA: 31 weeks 6 days AC: 27.4 cm EGA: 31 weeks 4 days FL: 6.1 cm EGA: 31 weeks 5 days HC/AC Ratio: 1.06 The gestational age by today's ultrasound is 31 weeks 3 days (+/- 15 days gestation). Estimated Weight: 1789 grams, +/- 268 grams ( 3 lb 15 oz). Weight Percentile for gestational age: 47 % IMPRESSION: 1. Single, live intrauterine gestation 31 weeks, 2 days by LMP. Today's ultrasound measurements correlate with a gestational age of 31 weeks 3 days. Estimated weight is 1789 grams, +/- 268 grams ( 3 lb 15 oz) which correlates to 47 %. DUGLAS is 09/20/2024. Electronically Signed:Electronically signed by BLU SALDIVAR II, MD, PHD at 24-Jul-2024 07:21:59 AM [facility] [facility] Normal Not Available Comment on above: Order Comment: US OB SCAN FOR GROWTH Estimated Date of Delivery: 09/21/24 Gestational Age as of 07/01/2024: 28w2d Urinalysis macro (dipstick) panel (U)on 07-22-2024 Bilirubin, UA Negative Negative - 4(70) +++ mg/dL [facility] Blood, UA Negative Negative - 50 Quentin/mcL [facility] Clarity, UA Clear [facility] Color, UA Yellow [facility] Glucose, UA Positive Negative - 1999(110) ++++ mg/dL [facility] Interpretation and review of laboratory results Abnormal [facility] Ketones, UA Positive Negative - 160(16) ++++ mg/dL [facility] Leukocytes, UA Negative Negative - 500+++ Angelica/mcL [facility] Nitrite, UA Negative Negative - Positive [facility] pH, UA 7 5 - 9 [facility] Protein, UA Positive Negative - 1999(20) ++++ mg/dL [facility] Spec Grav, UA 1.02 1 - 1.03 [facility] Urobilinogen, UA 1.0 0.2 - 12 mg/dL [facility] TBH UA (CLEAN/CATCH) NUTRITION INSTRUCTOR/MERRILL RO IF IND.on 07-14-2024 BILIRUBIN URINE Negative NEGATIVE [facility] BLOOD URINE Negative NEGATIVE [facility] Clarity (U) SL CLOUDY CLEAR [facility] Color (U) YELLOW YELLOW [facility] GLUCOSE URINE UA 100 mg/dL Abnormal NEGATIVE [facility] Interpretation and review of laboratory results Abnormal [facility] Healthcare Ketones Ql (U) TRACE Abnormal NEGATIVE mg/dL [facility] H [facility] Leukocyte esterase Test strip Ql (U) Negative NEGATIVE [facility] NITRITE URINE Negative NEGATIVE [facility] Health care pH (U) 6.5 [pH] 5.0 - 9.0 [facility] PROTEIN URINE TRACE NEG/TRACE mg/dL [facility] SPECIFIC GRAVITY URINE 1.025 1.005 - 1.025 [facility] URINE MICROSCOPIC INDICATED NO [facility] Healthcare UROBILINOGEN URINE 0.2 EU/dL 0.2 - 1.0 EU/dL [facility] Cytology Cervical or vaginal smear or scraping studyon 07-10-2024 [facility] ALL TYPE AND SCREENon 2024 ABO and Rh group Nom (Bld) Blood group O Rh(D) positive [facility] , [facility] Urinalysis macro (dipstick) panel (U)on 07-01-2024 Bilirubin, UA Negative Negative - 4(70) +++ mg/dL [facility] Blood, UA Negative Negative - 50 Quentin/mcL [facility] Clarity, UA Clear [facility] re Color, UA Yellow [facility] Glucose, UA Negative Negative - 1999(110) ++++ mg/dL [facility] Interpretation and review of laboratory results Abnormal [facility] Ketones, UA Negative Negative - 160(16) ++++ mg/dL [facility] Leukocytes, UA Trace Negative - 500+++ Angelica/mcL [facility] Nitrite, UA Negative Negative - Positive [facility] pH, UA 7 5 - 9 [facility] e Protein, UA Trace Negative - 1999(20) ++++ mg/dL [facility] Spec Grav, UA 1.02 1 - 1.03 [facility] Urobilinogen, UA 0.2 0.2 - 12 mg/dL [facility] ALL CBC WITH AUTO DIFFon BASOPHILS ABSOLUTE AUTO 0 [facility] Basophils/100 WBC (Bld) 0.1 % Low 0.2 - 2.0 % [facility] Eosinophils/100 WBC (Bld) 3.2 % 0.9 - 7.0 % [facility] Erythrocyte distribution width (RBC) [Ratio] 13.3 % 11.0 - 15.0 % [facility] Hematocrit (Bld) [Volume fraction] 34.7 % Low 36.0 - 48.0 % [facility] Hemoglobin (Bld) [Mass/Vol] 11.3 g/dL Low 12.0 - 16.0 g/dL [facility] IMMATURE GRANULOCYTES ABS AUTO 0.07 High [facility] Immature granulocytes/100 WBC (Bld) 0.8 % High 0.0 - 0.5 % [facility] Interpretation and review of laboratory results Abnormal [facility] LYMPHOCYTES ABSOLUTE AUTO 1.5 [facility] Lymphocytes/100 WBC (Bld) 17 % Low 20.5 - 60.0 % [facility] MCH (RBC) [Entitic mass] 29.4 pg 26.7 - 34.0 pg [facility] MCHC (RBC) [Mass/Vol] 32.6 g/dL 29.9 - 35.2 g/dL [facility] MCV (RBC) [Entitic vol] 90.4 fL 81.0 - 99.0 fL [facility] MONOCYTES ABSOLUTE AUTO 0.7 [facility] Monocytes/100 WBC (Bld) 7.5 % 1.7 - 12.0 % [facility] NEUTROPHILS ABSOLUTE AUTO 6.3 [facility] Neutrophils/100 WBC (Bld) 71.4 % 43.0 - 75.0 % [facility] Platelet mean volume (Bld) [Entitic vol] 11.4 fL 9.5 - 13.5 fL [facility] EO # 0.3 [facility]T 194 [facility] e TB RBC 3.84 Low [facility] TB WBC 8.8 [facility] Urinalysis macro (dipstick) panel (U)on 06-17-2024 Bilirubin, UA Negative Negative - 4(70) +++ mg/dL [facility] Blood, UA Negative Negative - 50 Quentin/mcL [facility] Clarity, UA Clear [facility] re Color, UA Yellow [facility] Glucose, UA Positive Negative - 1999(110) ++++ mg/dL [facility] Interpretation and review of laboratory results Abnormal [facility] Ketones, UA Negative Negative - 160(16) ++++ mg/dL [facility] Leukocytes, UA Negative Negative - 500+++ Angelica/mcL [facility] Nitrite, UA Trace Negative - Positive [facility] pH, UA 7.5 5 - 9 [facility] e Protein, UA Positive Negative - 1999(20) ++++ mg/dL [facility] Spec Grav, UA 1.02 1 - 1.03 [facility] Urobilinogen, UA 0.2 0.2 - 12 mg/dL [facility] Urinalysis macro (dipstick) panel (U)on 05-20-2024 Bilirubin, UA Negative Negative - 4(70) +++ mg/dL [facility] Blood, UA Negative Negative - 50 Quentin/mcL [facility] Healthcare Clarity, UA Clear [facility] re Color, UA Yellow [facility] Glucose, UA Negative Negative - 1999(110) ++++ mg/dL [facility] Interpretation and review of laboratory results Abnormal [facility] Ketones, UA Negative Negative - 160(16) ++++ mg/dL [facility] Leukocytes, UA Trace Negative - 500+++ Angelica/mcL [facility] Healthcare Nitrite, UA Negative Negative - Positive [facility] pH, UA 7 5 - 9 [facility] Protein, UA Negative Negative - 1999(20) ++++ mg/dL [facility] Healthcare Spec Grav, UA 1.025 1 - 1.03 [facility] care Urobilinogen, UA 0.2 0.2 - 12 mg/dL [facility] Urinalysis macro (dipstick) panel (U)on 04-21-2024 Bilirubin, UA Negative Negative - 4(70) +++ mg/dL [facility] Blood, UA Negative Negative - 50 Quentin/mcL [facility] Healthcare Clarity, UA Clear [facility] re Color, UA Yellow [facility] Glucose, UA Negative Negative - 1999(110) ++++ mg/dL [facility] Interpretation and review of laboratory results Normal [facility] Ketones, UA Negative Negative - 160(16) ++++ mg/dL [facility] Leukocytes, UA Negative Negative - 500+++ Angelica/mcL [facility] Healthcare Nitrite, UA Negative Negative - Positive [facility] pH, UA 7 5 - 9 [facility] Protein, UA Negative Negative - 1999(20) ++++ mg/dL [facility] Spec Grav, UA 1.025 1 - 1.03 [facility] care Urobilinogen, UA 0.2 0.2 - 12 mg/dL [facility] HCG ( test) Ql (U)o n 04-02-2024 Interpretation and review of laboratory results Abnormal [facility] Preg Test, Ur Positive Negative [facility] Urinalysis macro (dipstick) panel (U)on 04-02-2024 Bilirubin, UA Negative Negative - 4(70) +++ mg/dL [facility] Blood, UA Negative Negative - 50 Quentin/mcL [facility] Clarity, UA Clear [facility] Health[facility] re Color, UA Yellow [facility] Glucose, UA Negative Negative - 1999(110) ++++ mg/dL [facility] Interpretation and review of laboratory results Normal [facility] Ketones, UA Negative Negative - 160(16) ++++ mg/dL [facility] Leukocytes, UA Negative Negative - 500+++ Angelica/mcL [facility] Nitrite, UA Negative Negative - Positive [facility] pH, UA 5.5 5 - 9 [facility] e Protein, UA Negative Negative - 1999(20) ++++ mg/dL [facility] Spec Grav, UA 1.02 1 - 1.03 [facility] Urobilinogen, UA 1.0 0.2 - 12 mg/dL [facility] PAP IG RFX APTIMA HPVon 06-0 . . Normal [facility] Comment on above: Result Comment: Perf ormed at: WB Performed By: #### P APHRA #### [facility] [address] [address] Nesha Hays DIAGNOSIS: Comment Normal [facility] Comment on above: Result Comment: NEGA TIVE FOR INTRAEPITHELIAL LESION OR MALIGNANCY. Performed at: WB Performed By: #### P APHRA #### [facility] [address] [address] [place]ha H[place] HPV Aptima Negative Normal Negative [facility] Comment on above: Result Comment: This nucleic acid amplification test detects fourteen high-risk HPV types (16,18,31,33,35,39,45,51,52,56,58,59,66,68) without differentiation. Performed at: =G Performed By: #### P APHRA #### [facility] [address] [address] Nesha Hays Note: Comment [facility] Comment on above: Result Comment: The [...] WB Performed By: #### P APHRA #### [facility] [address] [id number] Nesha Hays Performed by: Comment Normal [facility] Comment on above: Result Comment: Erick Medrano Mailmaster (ASCP) Performed at: WB Performed By: #### P APHRA #### [facility] [address] [id number] Nesha Hays Specimen adequacy: Comment Normal [facility] Comment on above: Result Comment: Sati sfactory for evaluation. Endocervical and/or squamous metaplastic cells (endocervical component) are present. Performed at: WB Performed By: #### P APHRA #### [facility] [address] [address] [place]ha Hays US BREAST LEFT LIMITEDon US BREAST LEFT LIMITED Patient: LALITHA HANSEN Exam Date: 12/21/2019 : 1995 Gender:F Ordering : DR HARRY HARDWICK . Admission #: [id number] Family : Order #: [id number] CLICK HERE TO VIEW EXAM RADIOLOGY REPORT [...] Jimenez M.D. on 12/21/2019 at 14:46 Normal [facility] Vital Signs Date Time Vital Sign Value Performing Clinician David smith 09-07-2024 09:040 Body mass index (BMI) [Ratio] 28.08 kg/m2 [employer] Work Phone: [facility] 09-07-2024 09:040 Body weight 70.76 kg Harry Mulu DO Work Phone: [facility] 09-07-2024 09:22-0400 Diastolic blood pressure 74 mm[Hg] Harry Mulu DO Work Phone: [facility] 09-07-2024 09:22-0400 Systolic blood pressure 112 mm[Hg] Harry Mulu DO Work Phone: [facility] 08-31-2024 10:17-0400 Body mass index (BMI) [Ratio] 27.72 kg/m2 Harry Mulu DO Work Phone: [facility] 08-31-2024 10:17-0400 Body weight 69.85 kg Harry Mulu DO Work Phone: [facility] 08-31-2024 10:17-0400 Diastolic blood pressure 72 mm[Hg] Harry Mulu DO Work Phone: [facility] 08-31-2024 10:17-0400 Systolic blood pressure 110 mm[Hg] Harry Mulu DO Work Phone: [facility] 08-24-2024 11:53-0400 Body mass index (BMI) [Ratio] 27.18 kg/m2 Crissy DESIR Work Phone: [facility] 08-24-2024 11:53-0400 Body weight 68.49 kg Crissy DESIR Work Phone: [facility] 08-24-2024 11:53-0400 Diastolic blood pressure 68 mm[Hg] Crissy Weir PA Work Phone: [facility] 08-24-2024 11:53-0400 Systolic blood pressure 100 mm[Hg] Crissy Weir PA Work Phone: [facility] 08-10-2024 09:09-0400 Body mass index (BMI) [Ratio] 27.18 kg/m2 Harry Mulu DO Work Phone: [facility] 08-10-2024 09:09-0400 Body weight 68.49 kg Harry Mulu DO Work Phone: [facility] 08-10-2024 09:09-0400 Diastolic blood pressure 58 mm[Hg] Harry Mulu DO Work Phone: [facility] 08-10-2024 09:09-0400 Systolic blood pressure 100 mm[Hg] Harry Mulu DO Work Phone: [facility] 07-22-2024 15:10-0500 Body mass index (BMI) [Ratio] 26.98 kg/m2 Crissy [place] PA Work Phone: [facility] 07-22-2024 15:10-0500 Body weight 67.99 kg Crissy Venita PA Work Phone: [facility] 07-22-2024 15:10-0500 Diastolic blood pressure 68 mm[Hg] Crissy Venita PA Work Phone: [facility] 07-22-2024 15:10-0500 Systolic blood pressure 104 mm[Hg] Crissy Venita PA Work Phone: [facility] 07-01-2024 12:08-0500 Body mass index (BMI) [Ratio] 26.35 kg/m2 Harry Mulu DO Work Phone: [facility] 07-01-2024 12:08-0500 Body weight 66.41 kg Harry Mulu DO Work Phone: [facility] 07-01-2024 12:08-0500 Diastolic blood pressure 70 mm[Hg] Harry Mulu DO Work Phone: [facility] 07-01-2024 12:08-0500 Systolic blood pressure 110 mm[Hg] Harry Mulu DO Work Phone: [facility] [facility] 13:33-0500 Body mass index (BMI) [Ratio] 25.76 kg/m2 Crissy [place] PA Work Phone: [facility] 06-17-2024 13:33-0500 Body weight 64.92 kg Crissy Venita PA Work Phone: [facility] 06-17-2024 13:33-0500 Diastolic blood pressure 50 mm[Hg] Crissy DESIR Work Phone: [facility] 06-17-2024 13:33-0500 Systolic blood pressure 102 mm[Hg] Crissy DSEIR Work Phone: [facility] 05-20-2024 09:35-0500 Body mass index (BMI) [Ratio] 24.14 kg/m2 Harry Mulu DO Work Phone: [facility] 05-20-2024 09:35-0500 Body weight 60.84 kg Harry Mulu DO Work Phone: [facility] 05-20-2024 09:35-0500 Diastolic blood pressure 60 mm[Hg] Harry Mulu DO Work Phone: [facility] 05-20-2024 09:35-0500 Systolic blood pressure 100 mm[Hg] Harry Mulu DO Work Phone: [facility] 04-20-2024 13:14-0500 Body mass index (BMI) [Ratio] 23.22 kg/m2 Harry Mulu DO Work Phone: [facility] 04-20-2024 13:14-0500 Body weight 58.51 kg Harry Mulu DO Work Phone: [facility] 04-20-2024 13:14-0500 Diastolic blood pressure 68 mm[Hg] Harry Mulu DO Work Phone: [facility] 04-20-2024 13:14-0500 Systolic blood pressure 108 mm[Hg] Harry Mulu DO Work Phone: [facility] 07-10-2023 10:36-0500 Body mass index (BMI) [Ratio] 22.5 kg/m2 Crissy DESIR Work Phone: [facility] 07-10-2023 10:36-0500 Body weight 56.7 kg Crissy DESIR Work Phone: [facility] 07-10-2023 10:36-0500 Diastolic blood pressure 62 mm[Hg] Crissy DESIR Work Phone: [facility] 07-10-2023 10:36-0500 Systolic blood pressure 100 mm[Hg] Crissy DESIR Work Phone: [facility] Encounters Encounter Date Encounter Type Care Provider Facility Start: 09-07-2024 End: 09-07-2024 Bamboo flowsheet Harry Mulu DO Work Phone: [facility] Start: 09-07-2024 End: 09-07-2024 Bamboo flowsheet Harry Mulu DO Work Phone: [facility] Start: 09-07-2024 End: 09-07-2024 flow sheet Harry Mulu DO Work Phone: [facility] Comment on above: Third trimester preg elvia; 38 weeks gestation of Start: 09-07-2024 End: 09-07-2024 ambulatory HARRY MULU Not Available Start: 08-31-2024 End: 08-31-2024 Bamboo flowsheet Harry Mulu DO Work Phone: [facility] Start: 08-31-2024 End: 08-31-2024 Bamboo flowsheet Harry Mulu DO Work Phone: [facility] Start: 08-31-2024 End: 08-31-2024 ambulatory HARRY MULU Not Available Start: 08-31-2024 End: 08-31-2024 flow sheet Harry Mulu DO Work Phone: [facility] Comment on above: Third trimester preg elvia; 37 weeks gestation of Start: 08-24-2024 End: 08-24-2024 Bamboo flowsheet Crissy DESIR Work Phone: [facility] Start: 08-24-2024 End: 08-28-2024 Bamboo flowsheet Crissy DESIR Work Phone: [facility] Start: 08-24-2024 End: 08-28-2024 Clinisync Result Encounter Crissy DESIR Work Phone: [facility] Unsolicited Start: 08-24-2024 End: 08-24-2024 ambulatory CRISSY WEIR Not Available Start: 08-24-2024 End: 08-24-2024 flow sheet Crissy DESIR Work Phone: [facility] Comment on above: Third trimester preg elvia Start: 08-10-2024 End: 08-10-2024 Office outpatient visit 15 minutes Harry Mulu DO Work Phone: [facility] Comment on above: 34 weeks gestation o f ; Third trimester Start: 08-10-2024 End: 08-10-2024 ambulatory HARRY MULU Not Available Start: 07-22-2024 End: 07-22-2024 Office outpatient visit 15 minutes Crissy DESIR Work Phone: [facility] Comment on above: 31 weeks gestation o f ; Second trimester Start: 07-22-2024 End: 07-22-2024 ambulatory CRISSY WEIR Not Available Start: 07-14-2024 End: 07-14-2024 Clinisync Result Encounter Harry Mulu DO Work Phone: [facility] Unsolicited Start: 07-14-2024 End: 07-14-2024 Clinisync Result Encounter Harry Mulu DO Work Phone: [facility] Unsolicited Start: 07-01-2024 End: 07-01-2024 Bamboo flowsheet Harry Mulu DO Work Phone: [facility] Start: 07-01-2024 End: 07-01-2024 Bamboo flowsheet Harry Mulu DO Work Phone: [facility] Start: 07-01-2024 End: 07-01-2024 Clinisync Result Encounter Harry Mulu DO Work Phone: [facility] Unsolicited Start: 07-01-2024 End: 07-01-2024 [...] Result Encounter Harry Mulu DO Work Phone: [facility] Unsolicited Start: 06-17-2024 End: 06-17-2024 [...] GA: 15w3d Start: 04-02-2024 End: 04-02-2024 ambulatory HARRY HARDWICK Not Available Start: 07-10-2023 End: 07-10-2023 Patient [...] Date Procedure Procedure Detail Performing Clinician Start: 09-07-2024 Urnls dip stick/tabl et rgnt non-auto w/o micrscp Harry Mulu DO Work Phone: Start: 08-31-2024 Urnls dip stick/tabl et rgnt non-auto w/o micrscp Harry Mulu DO Work Phone: Start: 08-24-2024 Urnls dip stick/tabl et rgnt non-auto w/o micrscp Crissy DESIR Work Phone: Start: 08-24-2024 ALL MISCELLANEOUS TEST Crissy DESIR Work Phone: Start: 08-10-2024 Urnls dip stick/tabl et rgnt non-auto w/o micrscp Harry Mulu DO Work Phone: Start: 07-22-2024 Urnls dip stick/tabl et rgnt non-auto w/o micrscp Crissy DESIR Work Phone: Start: 07-14-2024 TBH UA (CLEAN/CATCH) NUTRITION INSTRUCTOR/MICRO IF IND. Harry Mulu DO Work Phone: Start: 07-10-2024 Cytp cerv/vag auto t hin layer prep mnl screen Harry Hardwick DO Work Phone: Start: 07-01-2024 Antibody screen Harry ritter DO Work Phone: Start: 07-01-2024 ALL TYPE AND SCREEN Cor ey Mulu DO Work Phone: Start: 07-01-2024 Urnls dip stick/tabl et rgnt non-auto w/o micrscp Harry Mulu DO Work Phone: Start: 06-17-2024 Urnls dip stick/tabl et rgnt non-auto w/o micrscp Crissy Weir PA Work Phone: Start: 06-17-2024 ALL CBC WITH AUTO DIFF Harry Hardwick DO Work Phone: Start: 05-20-2024 Urnls dip stick/tabl et rgnt non-auto w/o micrscp Harryalice Silveirao DO Work Phone: Start: 04-20-2024 Urnls dip stick/tabl et rgnt non-auto w/o micrscp Harry Mulu DO Work Phone: Start: 04-02-2024 End: 04-02-2024 Urnls dip stick/tablet rgnt non-auto w/o micrscp Harry Silveirao DO Work Phone: Plan of Treatment Date Care Activity Detail Author Start: 01-24-2025 Influenza vaccination Influenz a Vaccine (Season Ended) [facility] Start: 09-14-2024 End: 09-14-2024 Patient encounter procedure 09/14/2024 11:30 AM EDT Routine [facility] [address] [place] [address] Harry Hardwick, DO [address] [place] [address] [facility] Start: 09-07-2024 End: 09-07-2024 Patient encounter procedure [facility] Comment on above: Arrived Start: 08-31-2024 End: 08-31-2024 Patient encounter procedure 08/31/2024 10:00 AM EDT Routine [facility] [address] [place] [phone] Harry Hardwick DO [address] [facility] [place] [address] [facility] Start: 08-24-2024 End: 08-24-2025 CULTURE, GROUP B STREP WITH SUSCEPTIBLITY CULTURE, GROUP B STREP WITH SUSCEPTIBLITY Lab Routine Third trimester Expected: 08/24/2024, Expires: 08/24/2025 [facility] Work Phone: Comment on above: Expected: 08/24/2024 , Expires: 08/24/2025 Start: 08-24-2024 End: 08-24-2024 Patient encounter procedure 08/24/2024 11:30 AM EDT Routine [facility] [address] [place] [phone] Crissy Weir PA [address] [place] [address] [place] [address] [facility] Start: 07-22-2024 End: 07-22-2024 Patient encounter procedure 07/22/2024 3:20 PM EST Routine [facility] [address] [facility] [place] [address] Crissy Weir, PA [address] [place] [address] [facility] Start: 07-22-2024 End: 07-22-2024 Professional / ancillary services management 07/22/2024 2:30 PM EST Ancillary Procedure [facility] [address] [place] [phone] [facility] Start: 07-13-2024 End: 07-13-2024 Patient encounter procedure 07/13/2024 11:00 AM EST Office Visit [facility] [address] [facility] [facility] [phone] Crissy Weir PA [address] [facility] [place] [address] [facility] Start: 07-01-2024 End: 07-01-2025 US for US OB follow up transabdominal approach Imaging Routine size inconsistent with dates Expected: 07/01/2024, Expires: 07/01/2025 [facility] Work Phone: Comment on above: Expected: 07/01/2024 , Expires: 07/01/2025 Start: 07-01-2024 End: 07-01-2024 Patient encounter procedure 07/01/2024 11:50 AM EST Routine [facility] [address] [facility] [phone] Harry Hardwick DO [address] [facility] [place] [address] [facility] Start: 06-17-2024 End: 06-17-2024 Patient encounter procedure [facility] Comment on above: Arrived Start: 05-20-2024 End: 05-20-2025 CBC panel - Blood by Automated count CBC Lab Routine Diabetes mellitus screening Expected: 05/20/2024 (Approximate), Expires: 05/20/2025 [facility] Work Phone: Comment on above: Expected: 05/20/2024 (Approximate), Expires: 05/20/2025 Start: 05-20-2024 End: 05-20-2025 Measurement of glucose 1 hour after glucose challenge for glucose tolerance test Glucose tolerance, 1 hour Lab Routine Diabetes mellitus screening Expected: 05/20/2024 (Approximate), Expires: 05/20/2025 [facility] Comment on above: Expected: 05/20/2024 (Approximate), Expires: 05/20/2025 Start: 05-20-2024 End: 05-20-2024 Patient encounter procedure 05/20/2024 9:10 AM EST Routine [facility] [address] [facility] [phone] Harry Hardwick, DO [address] [place] [address] [facility] Start: 05-04-2024 End: 05-04-2024 Professional / ancillary services management 05/04/2024 1:00 PM EST Ancillary Procedure [facility] [address] [facility] [phone] [facility] Start: 04-20-2024 End: 08-18-2024 [...] AM EST Routine [facility] [address] [place] [phone] Harry Hardwick, DO [address] [place] [address] [facility] Start: 04-02-2024 End: 04-02-2025 ABO/Rh ABO/Rh Lab Routine Missed menses , unspecified gestational age Expected: 04/02/2024 (Approximate), Expires: 04/02/2025 [facility] Comment on above: Expected: 04/02/2024 (Approximate), Expires: 04/02/2025 Start: 04-02-2024 End: 04-02-2025 Blood type and Indirect antibody screen panel - Blood Type and screen Lab Routine Missed menses , unspecified gestational age Expected: 04/02/2024 (Approximate), Expires: 04/02/2025 [facility] Work Phone: Comment on above: Expected: 04/02/2024 (Approximate), Expires: 04/02/2025 Start: 04-02-2024 End: 04-02-2025 Drugs of abuse panel - Urine by Screen method Rapid drug screen, urine Lab Routine , unspecified gestational age Encounter for supervision of normal first in first trimester Expected: 04/02/2024 (Approximate), Expires: 04/02/2025 [facility] Comment on above: Expected: 04/02/2024 (Approximate), Expires: 04/02/2025 Start: 01-25-2024 Influenza vaccination Influenza Vacc ine (#1) [facility] Start: 07-10-2023 End: 07-10-2023 Patient encounter procedure 07/10/2023 10:00 AM EST Office Visit [facility] [address] [facility] [phone] Crissy Weir PA [address] [facility] [address] [place], [place] [id number] Well woman exam with routine gynecological exam [facility] Comment on above: Well woman exam with routine gynecological exam Start: 01-24-2023 Influenza vaccination Influenza Vacc ine (#1) [facility] Bacteria identified in Urine by Culture Urine culture Microbiology Routine Missed menses Ordered: 04/02/2024 [facility] Comment on above: Ordered: 04/02/2024 CBC W Auto Different ial panel - Blood CBC and differential Lab Routine Missed menses , unspecified gestational age Ordered: 04/02/2024 [facility] Comment on above: Ordered: 04/02/2024 Cytology Cervical or vaginal smear or scraping study Pap Smear Pathology and Cytology Routine Well woman exam with routine gynecological exam Ordered: 07/10/2023 [facility] Work Phone: Comment on above: Ordered: 07/10/2023 Hemoglobin A1c/Hemoglobin.total in Blood Hemoglobin A1c Lab Routine Missed menses , unspecified gestational age Ordered: 04/02/2024 [facility] Comment on above: Ordered: 04/02/2024 Hepatitis B virus surface Ag [Presence] in Serum or Plasma by Immunoassay Hepatitis B surface antigen Lab Routine Missed menses , unspecified gestational age Ordered: 04/02/2024 [facility] Comment on above: Ordered: 04/02/2024 Hepatitis C virus Ab [Presence] in Serum or Plasma by Immunoassay Hepatitis C antibody Lab Routine Missed menses , unspecified gestational age Ordered: 04/02/2024 [facility] Comment on above: Ordered: 04/02/2024 HIV-1/HIV-2 antigen/antibody combination immunoassay HIV-1 and HIV-2 antibodies Lab Routine Missed menses , unspecified gestational age Ordered: 04/02/2024 [facility] Comment on above: Ordered: 04/02/2024 Reagin Ab [Presence] in Serum by RPR RPR Lab Routine Missed menses , unspecified gestational age Ordered: 04/02/2024 [facility] Comment on above: Ordered: 04/02/2024 Rubella antibody, IgG Rubella an tibody, IgG Lab Routine Missed menses , unspecified gestational age Ordered: 04/02/2024 [facility] Comment on above: Ordered: 04/02/2024 Immunizations Immunization Date Immunization Notes Care Provider Wil hoyos 04-27-2009 influenza virus vacc ine, unspecified formulation Crissy DESIR Work Phone: [facility] Payers Date Payer Category Payer Medicaid (Managed Care) [facility] MEDICAID [id number] 2024 Medicaid [id number] 2023 Private Health Insurance [employer] [id number] 2023 Unknown [employer] [id number] 2023-Present [phone] [address] [address] [place] [address] [id number] 2023 Unknown [id number] 1997 Unknown [id number] [id number]. 593 1997 Unknown [id number] 2.16.840.1.216584.3.579.2. 593 1997 Unknown [id number] 2.16.840.1.404461.3.579.2. 593 1997 Unknown [id number] 2.16.840.1.116117.3.579.2. 1259 1997 Unknown [id number] 2.16.840.1.481443.3.579.2. 1259 1997 Unknown [id number] 2.16.840.1.206564.3.579.2. 1259 1997 Unknown [id number] 2.16.840.1.318035.3.579.2. 9 1997 Unknown [id number] 2.16.840.1.062129.3.579.2. 1258 1997 Unknown [id number] 2.16.840.1.375078.3.579.2. 1258 1997 Unknown [id number] 2.16.840.1.657405.3.579.2. 9 1997 Unknown [id number] 2.16.840.1.673141.3.579.2. 1258 1997 Unknown [id number] 2.16.840.1.881834.3.579.2. 9 1997 Unknown [id number] [id number]. 1259 1959 Self-pay 1957 Unknown [id number] Social History Date Type Detail Facility Start: 07-09-2023 Tobacco smoking stat [facility] Never smoked tobacco [facility] Start: 07-09-2023 End: 09-07-2024 Alcohol intake Lifetime non-drinker (finding) [facility] Start: 1995 Sex Assigned At Not on file [facility] Start: 07-09-2023 End: 04-02-2024 Gender identity Not on file [facility] Start: 07-09-2023 End: 04-02-2024 History of Social function [facility] Start: 1995 Sex Assigned At Female [facility] Start: 07-09-2023 Gender identity Identifies as female gender (finding) [facility] Start: 12-30-2023 [facility] Clinical Notes 07-10-2023 to 09-07-2024 Lis Mullen LPN - 09/07/2024 9:00 AM Margoth Mullen LPN - 08/31/2024 10:00 AM THANG Bela - 08/24/2024 11:30 AM Margoth Mullen LPN - 08/10/2024 9:00 AM EDT Note Date & Type Note Facility 09-07-2024 History of Presen t illness Narrative Reason for Appointment: Patient ID: Lalitha Chong is a 29 y.o. female who presents for Routine Visit [...] Constitutional: Appearance: Normal appearance. She is well-developed. Genitourinary: Vulva normal. Cardiovascular: Rate and Rhythm: Normal rate and [...] nursing note reviewed. Exam conducted with a direct sales representative present. Vitals: Estimated body mass index is 28.08 kg/m as calculated from the following: Height as of 09/16/22: 5' 2.5 . Weight as of this encounter: 156 lb. BP: 112/74 Patient's last menstrual period was 11/12/2023. ASSESSMENT & PLAN ICD-10-CM 1. Third trimester Z34.93 POCT urinalysis dipstick manually resulted 2. 38 weeks gestation of Z3A.38 Return OB: Patient presents today for a routine obstetrics appointment. Patient is currently 38w0d . Patient states she is doing well but has complaints of being tired due to current . Patient has verbalizes frequent movement. labor precautions was discussed/given and patient was instructed to perform kick counts three times a day. Orders Placed This Encounter Procedures POCT urinalysis dipstick manually resulted Follow Up: Patient is to return to office in 1 week for routine OB appointment. Documented by Lis Mullen LPN on behalf of: Harry Hardwick DO documented in this encounter [facility] 08-31-2024 History of Presen t illness Narrative Reason for Appointment: Patient ID: Lalitha Chong is a 29 y.o. female who presents for Routine Visit [...] Constitutional: Appearance: Normal appearance. She is well-developed. Genitourinary: Vulva normal. Cardiovascular: Rate and Rhythm: Normal rate and [...] nursing note reviewed. Exam conducted with a direct sales representative present. Vitals: Estimated body mass index is 27.72 kg/m as calculated from the following: Height as of 09/16/22: 5' 2.5 . Weight as of this encounter: 154 lb. BP: 110/72 Patient's last menstrual period was 11/12/2023. ASSESSMENT & PLAN ICD-10-CM 1. Third trimester Z34.93 POCT urinalysis dipstick manually resulted 2. 37 weeks gestation of Z3A.37 Return OB: Patient presents today for a routine obstetrics appointment. Patient is currently 37w0d . Patient states she is doing well but has complaints of being tired due to current . Patient has verbalizes frequent movement. labor precautions was discussed/given and patient was instructed to perform kick counts three times a day. Orders Placed This Encounter Procedures POCT urinalysis dipstick manually resulted Follow Up: Patient is to return to office in 1 week for routine OB appointment. Documented by Lsi Mullen LPN on behalf of: Harry Hardwick DO documented in this encounter [facility] 08-24-2024 History of Presen t illness Narrative Reason for Appointment: Patient ID: Lalitha Chong is a 29 y.o. female who presents for Routine Visit [...] Objective: Physical Exam Constitutional: Appearance: Normal appearance. Genitourinary: [...] nursing note reviewed. Exam conducted with a direct sales representative present. Vitals: Estimated body mass index is 27.18 kg/m as calculated from the following: Height as of 09/16/22: 5' 2.5 . Weight as of this encounter: 151 lb. BP: 100/68 Patient's last menstrual period was 11/12/2023. ASSESSMENT & PLAN ICD-10-CM 1. Third trimester Z34.93 POCT urinalysis dipstick manually resulted CULTURE, GROUP B STREP WITH SUSCEPTIBLITY CULTURE, GROUP B STREP WITH SUSCEPTIBLITY Patient is doing well but has complaints of being tired and having maternal discomfort due to . Patient verbalized frequent movement and was instructed to perform kick counts three times per day. labor precautions were given, LARC consent was signed/declined, and GBS was obtained. Cervical check was performed and patient is 0.5cm dilated. Orders Placed This Encounter Procedures CULTURE, GROUP B STREP WITH SUSCEPTIBLITY POCT urinalysis dipstick manually resulted Follow Up: Patient is to return to office in 1 week for routine OB appointment Documented by Debora Cardona MA on behalf of: THANG Rios documented in this encounter [facility] 08-10-2024 History of Presen t illness Narrative Reason [...] nursing note reviewed. Exam conducted with a direct sales representative present. Vitals: Estimated body mass index is 27.18 kg/m as calculated from the following: Height as of 09/16/22: 5' 2.5 . Weight as of this encounter: 151 lb. BP: 100/58 Patient's last menstrual period was 11/12/2023. ASSESSMENT & PLAN ICD-10-CM 1. 34 weeks gestation of Z3A.34 POCT urinalysis dipstick manually resulted 2. Third trimester Z34.93 POCT urinalysis dipstick manually resulted Return OB: Patient presents today for a routine obstetrics appointment. Patient is currently 34w0d . Patient states she is doing well [...] week for routine OB appointment. Documented by Lis Mullen LPN on behalf of: Harry Hardwick DO documented in this encounter [facility] 07-01-2024 History of Presen t illness Narrative [...] nursing note reviewed. Exam conducted with a direct sales representative present. Vitals: Estimated body mass index is [...] Harry Hardwick DO documented in this encounter [facility] 06-17-2024 History of Presen t illness [...] of: THANG Rios documented in this encounter [facility] 05-20-2024 History of Presen t illness [...] nursing note reviewed. Exam conducted with a direct sales representative present. Vitals: Estimated body mass index is [...] Harry Hardwick DO documented in this encounter [facility] 04-20-2024 History of Presen t illness [...] nursing note reviewed. Exam conducted with a direct sales representative present. Vitals: Estimated body mass index is [...] Harry Hardwick DO documented in this encounter [facility] 04-02-2024 History of Presen t illness [...] or undercooked meat, and stay away from [facility]. Patient has also been advised to [...] Jesusita Ramos LPN documented in this encounter [facility] 07-10-2023 History of Presen t illness [...] nursing note reviewed. Exam conducted with a direct sales representative present. Patient presents today for an annual [...] of: THANG Rios documented in this encounter [facility] Evaluation note Diagnosis Well woman exam [...] with dates [facility] Diagnosis 31 weeks gestation of Second trimester state, incidental [facility]* Diagnosis 34 weeks gestation of Third trimester state, incidental [facility]* Diagnosis Third trimester state, incidental [facility]* Diagnosis Third trimester state, incidental 37 weeks gestation of documented [facility]* Diagnosis Third trimester state, incidental 38 weeks gestation of documented in [facility] Narrative* THANG Rios - 07/22/2024 3:20 PM EST Reason for Appointment: Patient ID: Lalitha Chong [...] nursing note reviewed. Exam conducted with a direct sales representative present. Vitals: Estimated body mass index is 26.98 kg/m as calculated from the following: Height as of 09/16/22: 5' 2.5 . Weight as of this encounter: 149 lb 14.4 oz. BP: 104/68 Patient's last menstrual period was 11/12/2023. ASSESSMENT & PLAN ICD-10-CM 1. 31 weeks gestation of Z3A.31 POCT urinalysis dipstick manually resulted 2. Second trimester Z34.92 POCT urinalysis dipstick manually resulted Patient presents today for a routine obstetrics appointment. Patient is currently 31w2d with a Estimated Date of Delivery: 09/21/24. Patient had growth scan obtained today and results reviewed. Patient over did activity at work, but no other complaints. Patient to return to clinic in 2 weeks for routine OB appointment. Documented by Danette Johnston LPN on behalf of: THANG Rios [facility] Summary Purpose Family History No Family History Records FoundNo Family History Records Found Advance Directives No Advanced Directives Records FoundNo Advanced Directives Records Found Additional Source Comments INFORMATION SOURCE (unrecogn ized section and content) DATE CREATED AUTHOR 12/03/2020 [facility] DATE CREATED AUTHOR AUTHOR'S ORGANIZ ATION 09/08/2024 [facility] EPIC Reason for Visit (unrecogniz [...] BE BASED ON THE PRIMARY CLINICAL RECORDS. [facility] provides no warranty or guarantee of the accuracy or completeness of information in this document.
[2024-09-12 18:29] VITALS: BP 114/67; PULSE 93; TEMP 35.9
[2024-09-12 18:46] LABS: Amnisure POSITIVE (NEGATIVE); Internal Control Within Normal Limits
[2024-09-12 18:47] LABS: Bilirubin Urine NEGATIVE (NEGATIVE); Blood Urine NEGATIVE (NEGATIVE); Clarity Urine CLEAR (CLEAR); Color Urine LT. YELLOW (YELLOW); Glucose Urine UA NEGATIVE (NEGATIVE); Ketones Urine NEGATIVE (NEGATIVE); Leukocyte Esterase Urine TRACE (NEGATIVE); Nitrite Urine NEGATIVE (NEGATIVE); Protein Urine 30 mg/dL (NEG/TRACE); Urobilinogen Urine 0.2 EU/dL (0.2-1.0); pH Urine 7.5 (5.0-9.0)
[2024-09-12 18:48] LABS: Urine Microscopic Indicated YES
[2024-09-12 18:54] LABS: Bacteria Urine TRACE #/HPF (NONE SEEN); Cast Seen? NONE SEEN #/LPF (NONE SEEN); Crystals Seen? None Seen #/HPF (None Seen); Mucus Urine NONE SEEN (NONE SEEN); RBC Urine 0-2 #/HPF (0-2); Squamous Epithelial Cell Urine FEW #/LPF (NONE/RARE); Urine Culture Indicated YES-LC
--- OUTSIDE RECORDS SUMMARY | 2024-09-12 19:11 | XMS_ITS | CCD ---
Author Organization [facility] Care Team Providers Care Residence Manager Name Role Phone DR HARRY HARDWICK Attending [...] UA Negative Negative - 4(70) +++ mg/dL [facility] Blood, UA Negative Negative - 50 Quentin/mcL [facility] Clarity, UA Clear [facility] Color, UA Yellow [facility] Glucose, UA Negative Negative - 1999(110) ++++ mg/dL [facility] Interpretation and review of laboratory results Abnormal [facility] Ketones, UA Positive Negative - 160(16) ++++ mg/dL [facility] Comment on above: trace Leukocytes, UA Positive Negative - 500+++ Angelica/mcL [facility] Comment on above: small Nitrite, UA Negative Negative - Positive [facility] pH, UA 6.5 5 - 9 [facility] Protein, UA Positive Negative - 1999(20) ++++ mg/dL [facility] Comment on above: 30 Spec Grav, UA 1.03 1 - 1.03 [facility] Urobilinogen, UA 1.0 0.2 - 12 mg/dL [facility] Urinalysis macro (dipstick) panel (U)on 08-31-2024 Bilirubin, UA Negative Negative - 4(70) +++ mg/dL [facility] Blood, UA Negative Negative - 50 Quentin/mcL [facility] Clarity, UA Clear [facility] re Color, UA Yellow [facility] Glucose, UA Negative Negative - 1999(110) ++++ mg/dL [facility] Interpretation and review of laboratory results Abnormal [facility] Ketones, UA Positive Negative - 160(16) ++++ mg/dL [facility] Comment on above: trace Leukocytes, UA Trace Negative - 500+++ Angelica/mcL [facility] Nitrite, UA Negative Negative - Positive [facility] pH, UA 6 5 - 9 [facility] Protein, UA Trace Negative - 1999(20) ++++ mg/dL [facility] Spec Grav, UA 1.03 1 - 1.03 [facility] Urobilinogen, UA 0.2 0.2 - 12 mg/dL [facility] ALL MISCELLANEOUS TESTon MISCELLANEOUS TEST COMMENT . [facility]care Comment on above: Test Ordered: [id number] Strep Gp B Culture+Rflx Strep Gp B Culture+Rflx Negative CB Reference Range: Negative Centers for Disease Control and Prevention (CDC) and Citizen Of [place] Congress of Obstetricians and Gynecologists (ACOG) guidelines [...] resistance to clindamycin is noted. Performed at: [facility] [id number] Sales Lead: Raghavendra Flores PhD, Phone: [phone] Group B Streptococcus Colonization Detection Culture With Re [facility] Urinalysis macro (dipstick) panel (U)on 08-24-2024 Bilirubin, UA Negative Negative - 4(70) +++ mg/dL [facility] Blood, UA Negative Negative - 50 Quentin/mcL [facility] Clarity, UA Clear [facility] re Color, UA Yellow [facility] Glucose, UA Negative Negative - 1999(110) ++++ mg/dL [facility] Interpretation and review of laboratory results Normal [facility] Ketones, UA Negative Negative - 160(16) ++++ mg/dL [facility] Leukocytes, UA Trace Negative - 500+++ Angelica/mcL [facility] Nitrite, UA Negative Negative - Positive [facility] pH, UA 6 5 - 9 [facility] Protein, UA Trace Negative - 1999(20) ++++ mg/dL [facility] Spec Grav, UA 1.03 1 - 1.03 [facility] care Urobilinogen, UA 0.2 0.2 - 12 mg/dL [facility] Urinalysis macro (dipstick) panel (U)on 08-10-2024 Bilirubin, UA Negative Negative - 4(70) +++ mg/dL [facility] Blood, UA Negative Negative - 50 Quentin/mcL [facility] Clarity, UA Clear [facility] Color, UA Yellow [facility] Glucose, UA Negative Negative - 1999(110) ++++ mg/dL [facility] Interpretation and review of laboratory results Abnormal [facility] Ketones, UA Negative Negative - 160(16) ++++ mg/dL [facility] Leukocytes, UA Positive Negative - 500+++ Angelica/mcL [facility] Comment on above: small Nitrite, UA Negative Negative - Positive [facility] pH, UA 7 5 - 9 [facility] Protein, UA Positive Negative - 1999(20) ++++ mg/dL [facility] Comment on above: 30 Spec Grav, UA 1.025 1 - 1.03 [facility] Urobilinogen, UA 0.2 0.2 - 12 mg/dL [facility] US OB FOLLOW UP TRANSABDOMIN [...] II, MD, PHD at 24-Jul-2024 07:21:59 AM [place]izen [place] [facility] Normal Not Available Comment on above: Order Comment: US OB SCAN FOR GROWTH Estimated Date of Delivery: 09/21/24 Gestational Age as of 07/01/2024: 28w2d Urinalysis macro (dipstick) panel (U)on 07-22-2024 Bilirubin, UA Negative Negative - 4(70) +++ mg/dL [facility] Blood, UA Negative Negative - 50 Quentin/mcL [facility] Clarity, UA Clear [facility] Color, UA Yellow [facility] Glucose, UA Positive Negative - 1999(110) ++++ mg/dL [facility] Interpretation and review of laboratory results Abnormal [facility] Ketones, UA Positive Negative - 160(16) ++++ mg/dL [facility] Leukocytes, UA Negative Negative - 500+++ Angelica/mcL [facility] Nitrite, UA Negative Negative - Positive [facility] pH, UA 7 5 - 9 [facility] Protein, UA Positive Negative - 1999(20) ++++ mg/dL [facility] Spec Grav, UA 1.02 1 - 1.03 [facility] Urobilinogen, UA 1.0 0.2 - 12 mg/dL [facility]H UA (CLEAN/CATCH) PARATRANSIT DRIVER/MERRILL RO IF IND.on 07-14-2024 BILIRUBIN URINE Negative NEGATIVE [facility]care BLOOD URINE Negative NEGATIVE [facility] Clarity (U) SL CLOUDY CLEAR [facility] Color (U) YELLOW YELLOW [facility] GLUCOSE URINE UA 100 mg/dL Abnormal NEGATIVE [facility] Interpretation and review of laboratory results Abnormal [facility] Healthcare Ketones Ql (U) TRACE Abnormal NEGATIVE mg/dL [facility] H ealthcare Leukocyte esterase Test strip Ql (U) Negative NEGATIVE [facility] NITRITE URINE Negative NEGATIVE [facility] Health care pH (U) 6.5 [pH] 5.0 - 9.0 [facility] PROTEIN URINE TRACE NEG/TRACE mg/dL [facility] SPECIFIC GRAVITY URINE 1.025 1.005 - 1.025 [facility] URINE MICROSCOPIC INDICATED NO [facility] Healthcare UROBILINOGEN URINE 0.2 EU/dL 0.2 - 1.0 EU/dL [facility] Cytology Cervical or vaginal smear or scraping studyon 07-10-2024 [facility] ALL TYPE AND SCREENon 2024 ABO and Rh group Nom (Bld) Blood group O Rh(D) positive [facility] , [facility] Urinalysis macro (dipstick) panel (U)on 07-01-2024 Bilirubin, UA Negative Negative - 4(70) +++ mg/dL [facility] Blood, UA Negative Negative - 50 Quentin/mcL [facility] Clarity, UA Clear [facility] re Color, UA Yellow [facility] Glucose, UA Negative Negative - 1999(110) ++++ mg/dL [facility] Interpretation and review of laboratory results Abnormal [facility] Ketones, UA Negative Negative - 160(16) ++++ mg/dL [facility] Leukocytes, UA Trace Negative - 500+++ Angelica/mcL [facility] Nitrite, UA Negative Negative - Positive [facility] pH, UA 7 5 - 9 [facility] e Protein, UA Trace Negative - 1999(20) ++++ mg/dL [facility] Spec Grav, UA 1.02 1 - 1.03 [facility] Urobilinogen, UA 0.2 0.2 - 12 mg/dL [facility] ALL CBC WITH AUTO DIFFon BASOPHILS ABSOLUTE AUTO 0 [facility] Basophils/100 WBC (Bld) 0.1 % Low 0.2 - 2.0 % [facility] Eosinophils/100 WBC (Bld) 3.2 % 0.9 - 7.0 % [facility] Erythrocyte distribution width (RBC) [Ratio] 13.3 % 11.0 - 15.0 % [facility] Hematocrit (Bld) [Volume fraction] 34.7 % Low 36.0 - 48.0 % [facility] Hemoglobin (Bld) [Mass/Vol] 11.3 g/dL Low 12.0 - 16.0 g/dL [facility] IMMATURE GRANULOCYTES ABS AUTO 0.07 High [facility] Immature granulocytes/100 WBC (Bld) 0.8 % High 0.0 - 0.5 % [facility] Interpretation and review of laboratory results Abnormal [facility] LYMPHOCYTES ABSOLUTE AUTO 1.5 [facility] Lymphocytes/100 WBC (Bld) 17 % Low 20.5 - 60.0 % [facility] MCH (RBC) [Entitic mass] 29.4 pg 26.7 - 34.0 pg [facility] MCHC (RBC) [Mass/Vol] 32.6 g/dL 29.9 - 35.2 g/dL [facility] MCV (RBC) [Entitic vol] 90.4 fL 81.0 - 99.0 fL [facility] MONOCYTES ABSOLUTE AUTO 0.7 [facility] Monocytes/100 WBC (Bld) 7.5 % 1.7 - 12.0 % [facility] NEUTROPHILS ABSOLUTE AUTO 6.3 [facility] Neutrophils/100 WBC (Bld) 71.4 % 43.0 - 75.0 % [facility] Platelet mean volume (Bld) [Entitic vol] 11.4 fL 9.5 - 13.5 fL [facility] EO # 0.3 [facility] TB PLT 194 [facility] e TB RBC 3.84 Low [facility] TB WBC 8.8 [facility] Urinalysis macro (dipstick) panel (U)on 06-17-2024 Bilirubin, UA Negative Negative - 4(70) +++ mg/dL [facility] Blood, UA Negative Negative - 50 Quentin/mcL [facility] Clarity, UA Clear [facility] re Color, UA Yellow [facility] Glucose, UA Positive Negative - 1999(110) ++++ mg/dL [facility] Interpretation and review of laboratory results Abnormal [facility] Ketones, UA Negative Negative - 160(16) ++++ mg/dL [facility] Leukocytes, UA Negative Negative - 500+++ Angelica/mcL [facility] Nitrite, UA Trace Negative - Positive [facility] pH, UA 7.5 5 - 9 [facility] e Protein, UA Positive Negative - 1999(20) ++++ mg/dL [facility] Spec Grav, UA 1.02 1 - 1.03 [facility] Urobilinogen, UA 0.2 0.2 - 12 mg/dL [facility] Urinalysis macro (dipstick) panel (U)on 05-20-2024 Bilirubin, UA Negative Negative - 4(70) +++ mg/dL [facility] Blood, UA Negative Negative - 50 Quentin/mcL [facility] Healthcare Clarity, UA Clear [facility] re Color, UA Yellow [facility] e Glucose, UA Negative Negative - 1999(110) ++++ mg/dL [facility] Interpretation and review of laboratory results Abnormal [facility] Ketones, UA Negative Negative - 160(16) ++++ mg/dL [facility] Leukocytes, UA Trace Negative - 500+++ Angelica/mcL [facility] Healthcare Nitrite, UA Negative Negative - Positive [facility] pH, UA 7 5 - 9 [facility] Protein, UA Negative Negative - 1999(20) ++++ mg/dL [facility] Healthcare Spec Grav, UA 1.025 1 - 1.03 [facility] care Urobilinogen, UA 0.2 0.2 - 12 mg/dL [facility] Urinalysis macro (dipstick) panel (U)on 04-21-2024 Bilirubin, UA Negative Negative - 4(70) +++ mg/dL [facility] Blood, UA Negative Negative - 50 Quentin/mcL [facility] Healthcare Clarity, UA Clear [facility] re Color, UA Yellow [facility] Glucose, UA Negative Negative - 1999(110) ++++ mg/dL [facility] Interpretation and review of laboratory results Normal [facility] Ketones, UA Negative Negative - 160(16) ++++ mg/dL [facility] Leukocytes, UA Negative Negative - 500+++ Angelica/mcL [facility] Healthcare Nitrite, UA Negative Negative - Positive [facility] pH, UA 7 5 - 9 [facility] Protein, UA Negative Negative - 1999(20) ++++ mg/dL [facility] Spec Grav, UA 1.025 1 - 1.03 [facility] care Urobilinogen, UA 0.2 0.2 - 12 mg/dL [facility] HCG ( test) Ql (U)o n 04-02-2024 Interpretation and review of laboratory results Abnormal [facility] Preg Test, Ur Positive [facility] Urinalysis macro (dipstick) panel (U)on 04-02-2024 Bilirubin, UA Negative Negative - 4(70) +++ mg/dL [facility] Blood, UA Negative Negative - 50 Quentin/mcL [facility] Clarity, UA Clear [facility] re Color, UA Yellow [facility] Glucose, UA Negative Negative - 1999(110) ++++ mg/dL [facility] Interpretation and review of laboratory results Normal [facility] Ketones, UA Negative Negative - 160(16) ++++ mg/dL [facility] Leukocytes, UA Negative Negative - 500+++ Angelica/mcL [facility] Nitrite, UA Negative Negative - Positive [facility] pH, UA 5.5 5 - 9 [facility] e Protein, UA Negative Negative - 1999(20) ++++ mg/dL [facility] Spec Grav, UA 1.02 1 - 1.03 [facility] Urobilinogen, UA 1.0 0.2 - 12 mg/dL [facility] PAP IG RFX APTIMA HPVon 06-0 . . Normal [facility] Comment on above: Result Comment: Perf ormed at: WB Performed By: #### P APHRA #### [facility] [address] [address] [place] DIAGNOSIS: Comment Normal [facility] Comment on above: Result Comment: NEGA TIVE FOR INTRAEPITHELIAL LESION OR MALIGNANCY. Performed at: WB Performed By: #### P APHRA #### [facility] [address] [address] [place] HPV Aptima Negative Normal Negative [facility] Comment on above: Result Comment: This nucleic acid amplification test detects fourteen high-risk HPV types (16,18,31,33,35,39,45,51,52,56,58,59,66,68) without differentiation. Performed at: =G Performed By: #### P APHRA #### [facility] [address] [address] [place] Note: Comment [facility] Comment on above: Result Comment: The [...] WB Performed By: #### P APHRA #### [facility] [address] [id number] [place] Performed by: Comment Normal [facility] Comment on above: Result Comment: Erick Medrano Microwave Technician (ASCP) Performed at: WB Performed By: #### P APHRA #### [facility] [address] [id number] [place] Specimen adequacy: Comment Normal [facility] Comment on above: Result Comment: Sati sfactory for evaluation. Endocervical and/or squamous metaplastic cells (endocervical component) are present. Performed at: WB Performed By: #### P APHRA #### [facility] [address] [address] [place] US BREAST LEFT LIMITEDon US BREAST LEFT LIMITED Patient: LALITHA HANSEN Exam Date: 12/21/2019 : 1995 Gender:F Ordering : DR HARRY HARDWICK . Admission #: [id number] Family : Order #: [id number] CLICK HERE TO VIEW EXAM RADIOLOGY REPORT [...] Jimenez M.D. on 12/21/2019 at 14:46 Normal [facility] Vital Signs Date Time Vital Sign Value Performing Clinician David smith 09-07-2024 09:040 Body mass index (BMI) [Ratio] 28.08 kg/m2 [employer] Work Phone: [facility] 09-07-2024 09:040 Body weight 70.76 kg Harry Mulu DO Work Phone: [facility] 09-07-2024 09:22-0400 Diastolic blood pressure 74 mm[Hg] Harry Mulu DO Work Phone: [facility] 09-07-2024 09:22-0400 Systolic blood pressure 112 mm[Hg] Harry Mulu DO Work Phone: [facility] 08-31-2024 10:17-0400 Body mass index (BMI) [Ratio] 27.72 kg/m2 Harry Mulu DO Work Phone: [facility] 08-31-2024 10:17-0400 Body weight 69.85 kg Harry Mulu DO Work Phone: [facility] 08-31-2024 10:17-0400 Diastolic blood pressure 72 mm[Hg] Harry Mulu DO Work Phone: [facility] 08-31-2024 10:17-0400 Systolic blood pressure 110 mm[Hg] Harry Mulu DO Work Phone: [facility] 08-24-2024 11:53-0400 Body mass index (BMI) [Ratio] 27.18 kg/m2 Crissy DESIR Work Phone: [facility] 08-24-2024 11:53-0400 Body weight 68.49 kg Crissy DESIR Work Phone: [facility] 08-24-2024 11:53-0400 Diastolic blood pressure 68 mm[Hg] Crissy Weir PA Work Phone: [facility] 08-24-2024 11:53-0400 Systolic blood pressure 100 mm[Hg] Crissy Weir PA Work Phone: [facility] 08-10-2024 09:09-0400 Body mass index (BMI) [Ratio] 27.18 kg/m2 Harry Mulu DO Work Phone: [facility] 08-10-2024 09:09-0400 Body weight 68.49 kg Harry Mulu DO Work Phone: [facility] 08-10-2024 09:09-0400 Diastolic blood pressure 58 mm[Hg] Harry Mulu DO Work Phone: [facility] 08-10-2024 09:09-0400 Systolic blood pressure 100 mm[Hg] Harry Mulu DO Work Phone: [facility] 07-22-2024 15:10-0500 Body mass index (BMI) [Ratio] 26.98 kg/m2 Crissy [place] PA Work Phone: [facility] 07-22-2024 15:10-0500 Body weight 67.99 kg Crissy Venita PA Work Phone: [facility] 07-22-2024 15:10-0500 Diastolic blood pressure 68 mm[Hg] Crissy Venita PA Work Phone: [facility] 07-22-2024 15:10-0500 Systolic blood pressure 104 mm[Hg] Crissy Venita PA Work Phone: [facility] 07-01-2024 12:08-0500 Body mass index (BMI) [Ratio] 26.35 kg/m2 Harry Mulu DO Work Phone: [facility] 07-01-2024 12:08-0500 Body weight 66.41 kg Harry Mulu DO Work Phone: [facility] 07-01-2024 12:08-0500 Diastolic blood pressure 70 mm[Hg] Harry Mulu DO Work Phone: [facility] 07-01-2024 12:08-0500 Systolic blood pressure 110 mm[Hg] Harry Mulu DO Work Phone: [facility] 06-17-2024 13:33-0500 Body mass index (BMI) [Ratio] 25.76 kg/m2 Crissy [place] PA Work Phone: [facility] 06-17-2024 13:33-0500 Body weight 64.92 kg Crissy Venita PA Work Phone: [facility] 06-17-2024 13:33-0500 Diastolic blood pressure 50 mm[Hg] Crissy DESIR Work Phone: [facility] 06-17-2024 13:33-0500 Systolic blood pressure 102 mm[Hg] Crissy DESIR Work Phone: [facility] 05-20-2024 09:35-0500 Body mass index (BMI) [Ratio] 24.14 kg/m2 Harry Mulu DO Work Phone: [facility] 05-20-2024 09:35-0500 Body weight 60.84 kg Harry Mulu DO Work Phone: [facility] 05-20-2024 09:35-0500 Diastolic blood pressure 60 mm[Hg] Harry Mulu DO Work Phone: [facility] 05-20-2024 09:35-0500 Systolic blood pressure 100 mm[Hg] Harry Mulu DO Work Phone: [facility] 04-20-2024 13:14-0500 Body mass index (BMI) [Ratio] 23.22 kg/m2 Harry Mulu DO Work Phone: [facility] 04-20-2024 13:14-0500 Body weight 58.51 kg Harry Mulu DO Work Phone: [facility] 04-20-2024 13:14-0500 Diastolic blood pressure 68 mm[Hg] Harry Mulu DO Work Phone: [facility] 04-20-2024 13:14-0500 Systolic blood pressure 108 mm[Hg] Harry Mulu DO Work Phone: [facility] 07-10-2023 10:36-0500 Body mass index (BMI) [Ratio] 22.5 kg/m2 Crissy DESIR Work Phone: [facility] 07-10-2023 10:36-0500 Body weight 56.7 kg Crissy DESIR Work Phone: [facility] 07-10-2023 10:36-0500 Diastolic blood pressure 62 mm[Hg] Crissy DESIR Work Phone: [facility] 07-10-2023 10:36-0500 Systolic blood pressure [...] OB Start: 05-20-2024 End: 05-20-2024 ambulatory HARRY UMLU Not Available Start: 05-20-2024 End: 05-20-2024 Office [...] Work Phone: Start: 07-14-2024 [facility] UA (CLEAN/CATCH) PARATRANSIT DRIVER/MICRO IF IND. Harry Mulu DO Work Phone: [...] AM EDT Routine [facility] [address] [place] [address] Harry Hardwick, DO [address] [place] [address] [facility] Start: 09-07-2024 End: 09-07-2024 Patient encounter procedure [facility] Comment on above: Arrived Start: 08-31-2024 End: 08-31-2024 Patient encounter procedure 08/31/2024 10:00 AM EDT Routine [facility] [address] [place] [id number] Harry Hardwick DO [address] [place] [address] [facility] Start: 08-24-2024 End: 08-24-2025 CULTURE, GROUP B STREP WITH SUSCEPTIBLITY CULTURE, GROUP B STREP WITH SUSCEPTIBLITY Lab Routine Third trimester Expected: 08/24/2024, Expires: 08/24/2025 [facility] Work Phone: Comment on above: Expected: 08/24/2024 , Expires: 08/24/2025 Start: 08-24-2024 End: 08-24-2024 Patient encounter procedure 08/24/2024 11:30 AM EDT Routine [facility] [address] [place] [id number] Crissy Weir PA [address] [place] [address] [place] [address] [facility] Start: 07-22-2024 End: 07-22-2024 Patient encounter procedure 07/22/2024 3:20 PM EST Routine [facility] [address] [place] [id number] Crissy Weir, PA [address] [place] [address] [facility] Start: 07-22-2024 End: 07-22-2024 Professional / ancillary services management 07/22/2024 2:30 PM EST Ancillary Procedure [facility] [address] [place] [id number] [facility] Start: 07-13-2024 End: 07-13-2024 Patient encounter procedure 07/13/2024 11:00 AM EST Office Visit [facility] [address] [place] [id number] Crissy Weir PA [address] [place] [address] [facility] OB Start: 07-01-2024 End: 07-01-2025 US for US OB follow up transabdominal approach Imaging Routine size inconsistent with dates Expected: 07/01/2024, Expires: 07/01/2025 [facility] Work Phone: Comment on above: Expected: 07/01/2024 , Expires: 07/01/2025 Start: 07-01-2024 End: 07-01-2024 Patient encounter procedure 07/01/2024 11:50 AM EST Routine [facility] [address] [place] [id number] Harry Hardwick DO [address] [place] [address] [facility] OB Start: 06-17-2024 End: 06-17-2024 [facility] encounter procedure [facility] [facility] Comment on above: Arrived Start: 05-20-2024 End: 05-20-2025 CBC panel - Blood by Automated count CBC Lab Routine Diabetes mellitus screening Expected: 05/20/2024 (Approximate), Expires: 05/20/2025 [facility] Work Phone: Comment on above: Expected: 05/20/2024 (Approximate), Expires: 05/20/2025 Start: 05-20-2024 End: 05-20-2025 Measurement of glucose 1 hour after glucose challenge for glucose tolerance test Glucose tolerance, 1 hour Lab Routine Diabetes mellitus screening Expected: 05/20/2024 (Approximate), Expires: 05/20/2025 [facility] Comment on above: Expected: 05/20/2024 (Approximate), Expires: 05/20/2025 Start: 05-20-2024 End: 05-20-2024 Patient encounter procedure 05/20/2024 9:10 AM EST Routine [facility] [address] [place] [id number] Harry Hardwick, DO [address] [place] [address] [facility] Start: 05-04-2024 End: 05-04-2024 Professional / ancillary services management 05/04/2024 1:00 PM EST Ancillary Procedure [facility] [address] [place] [id number] [facility] Start: 04-20-2024 End: 08-18-2024 [...] AM EST Routine [facility] [address] [place] [id number] Harry Hardwick, DO [address] [place] [address] [facility] Start: 04-02-2024 End: 04-02-2025 ABO/Rh ABO/Rh Lab Routine Missed menses , unspecified gestational age Expected: 04/02/2024 (Approximate), Expires: 04/02/2025 [facility] Comment on above: Expected: 04/02/2024 (Approximate), Expires: 04/02/2025 Start: 04-02-2024 End: 04-02-2025 Blood type and Indirect antibody screen panel - Blood Type and screen Lab Routine Missed menses , unspecified gestational age Expected: 04/02/2024 (Approximate), Expires: 04/02/2025 [facility] Work Phone: Comment on above: Expected: 04/02/2024 (Approximate), Expires: 04/02/2025 Start: 04-02-2024 End: 04-02-2025 Drugs of abuse panel - Urine by Screen method Rapid drug screen, urine Lab Routine , unspecified gestational age Encounter for supervision of normal first in first trimester Expected: 04/02/2024 (Approximate), Expires: 04/02/2025 [facility] Comment on above: Expected: 04/02/2024 (Approximate), Expires: 04/02/2025 Start: 01-25-2024 Influenza vaccination Influenza Vacc ine (#1) [facility] Start: 07-10-2023 End: 07-10-2023 Patient encounter procedure 07/10/2023 10:00 AM EST Office Visit [facility] [address] [place] [id number] Crissy Weir PA [address] [place], [place] [id number] Well woman exam with routine gynecological exam [facility] Comment on above: Well woman exam with routine gynecological exam Start: 01-24-2023 Influenza vaccination Influenza Vacc ine (#1) [facility] Bacteria identified in Urine by Culture Urine culture Microbiology Routine Missed menses Ordered: 04/02/2024 [facility] Comment on above: Ordered: 04/02/2024 CBC W Auto Different ial panel - Blood CBC and differential Lab Routine Missed menses , unspecified gestational age Ordered: 04/02/2024 [facility] Comment on above: Ordered: 04/02/2024 Cytology Cervical or vaginal smear or scraping study Pap Smear Pathology and Cytology Routine Well woman exam with routine gynecological exam Ordered: 07/10/2023 [facility] Work Phone: Comment on above: Ordered: 07/10/2023 Hemoglobin A1c/Hemoglobin.total in Blood Hemoglobin A1c Lab Routine Missed menses , unspecified gestational age Ordered: 04/02/2024 [facility] Comment on above: Ordered: 04/02/2024 Hepatitis B virus surface Ag [Presence] in Serum or Plasma by Immunoassay Hepatitis B surface antigen Lab Routine Missed menses , unspecified gestational age Ordered: 04/02/2024 [facility] Comment on above: Ordered: 04/02/2024 Hepatitis C virus Ab [Presence] in Serum or Plasma by Immunoassay Hepatitis C antibody Lab Routine Missed menses , unspecified gestational age Ordered: 04/02/2024 [facility] Comment on above: Ordered: 04/02/2024 HIV-1/HIV-2 antigen/antibody combination immunoassay HIV-1 and HIV-2 antibodies Lab Routine Missed menses , unspecified gestational age Ordered: 04/02/2024 [facility] Comment on above: Ordered: 04/02/2024 Reagin Ab [Presence] in Serum by RPR RPR Lab Routine Missed menses , unspecified gestational age Ordered: 04/02/2024 [facility] Comment on above: Ordered: 04/02/2024 Rubella antibody, IgG Rubella an tibody, IgG Lab Routine Missed menses , unspecified gestational age Ordered: 04/02/2024 [facility] Comment on above: Ordered: 04/02/2024 Immunizations Immunization Date Immunization Notes Care Provider Wil hoyos 04-27-2009 influenza virus vacc ine, unspecified formulation Crissy DESIR Work Phone: [facility] Payers Date Payer Category Payer Medicaid (Managed Care) [facility] MEDICAID [id number] 2024 Medicaid [id number] 2023 Private Health Insurance [employer] [id number] 2023 Unknown [employer] [id number] 2023-Present [phone] [address] [address] [place] [address] [id number] 2023 Unknown [id number] 1997 Unknown [id number] 2.16.840.1.130774.3.579.2. 593 1997 Unknown [id number] 2.16.840.1.908374.3.579.2. 593 1997 Unknown [id number] 2.16.840.1.663475.3.579.2. 593 1997 Unknown [id number] 2.16.840.1.799223.3.579.2. 1259 1997 Unknown [id number] 2.16.840.1.415205.3.579.2. 1259 1997 Unknown [id number] 2.16.840.1.239669.3.579.2. 1259 1997 Unknown [id number] 2.16.840.1.567295.3.579.2. 9 1997 Unknown [id number] 2.16.840.1.199011.3.579.2. 1258 1997 Unknown [id number] 2.16.840.1.599712.3.579.2. 1258 1997 Unknown [id number] 2.16.840.1.826187.3.579.2. 9 1997 Unknown [id number] 2.16.840.1.739162.3.579.2. 1258 1997 Unknown [id number] 2.16.840.1.171074.3.579.2. 9 1997 Unknown [id number] 2.16.840.1.449730.3.579.2. 1259 1959 Self-pay 1957 Unknown [id number] Social History Date Type Detail Facility Start: 07-09-2023 Tobacco smoking stat [facility] Never smoked tobacco [facility] Start: 07-09-2023 End: 09-07-2024 Alcohol intake Lifetime non-drinker (finding) [facility] Start: 1995 Sex Assigned At Not on file [facility] Start: 07-09-2023 End: 04-02-2024 Gender identity Not on file [facility] Start: 07-09-2023 End: 04-02-2024 History of Social function [facility] Start: 1995 Sex Assigned At Female [facility] Start: 07-09-2023 Gender identity Identifies as female gender (finding) [facility] Start: 12-30-2023 [facility] Clinical Notes 07-10-2023 to 09-07-2024 Lis Mullen LPN - 09/07/2024 9:00 AM Margoth Mullen LPN - 08/31/2024 10:00 AM THANG Beal - 08/24/2024 11:30 AM Margoth Mullen LPN [...] nursing note reviewed. Exam conducted with a job placement counselor present. Vitals: Estimated body mass index is [...] Harry Hardwick DO documented in this encounter [facility] 08-31-2024 History of Presen t illness Narrative [...] nursing note reviewed. Exam conducted with a job placement counselor present. Vitals: Estimated body mass index is [...] Harry Hardwick DO documented in this encounter [facility] 08-24-2024 History of Presen t illness Narrative [...] nursing note reviewed. Exam conducted with a job placement counselor present. Vitals: Estimated body mass index is [...] of: THANG Rios documented in this encounter [facility] 08-10-2024 History of Presen t illness Narrative [...] nursing note reviewed. Exam conducted with a job placement counselor present. Vitals: Estimated body mass index is [...] Harry Hardwick DO documented in this encounter [facility] 07-01-2024 History of Presen t illness Narrative [...] nursing note reviewed. Exam conducted with a job placement counselor present. Vitals: Estimated body mass index is [...] Harry Hardwick DO documented in this encounter [facility] 06-17-2024 History of Presen t illness Narrative [...] of: THANG Rios documented in this encounter [facility] 05-20-2024 History of Presen t illness Narrative [...] nursing note reviewed. Exam conducted with a job placement counselor present. Vitals: Estimated body mass index is [...] Harry Hardwick DO documented in this encounter [facility] 04-20-2024 History of Presen t illness Narrative [...] nursing note reviewed. Exam conducted with a job placement counselor present. Vitals: Estimated body mass index is [...] Harry Hardwick DO documented in this encounter [facility] 04-02-2024 History of Presen t illness Narrative [...] or undercooked meat, and stay away from [facility]. Patient has also been advised to not [...] Jesusita Ramos LPN documented in this encounter [facility] 07-10-2023 History of Presen t illness Narrative [...] nursing note reviewed. Exam conducted with a job placement counselor present. Patient presents today for an annual [...] of: THANG Rios documented in this encounter [facility] Evaluation note Diagnosis Well woman exam [...] nursing note reviewed. Exam conducted with a job placement counselor present. Vitals: Estimated body mass index is [...] content) DATE CREATED AUTHOR 12/03/2020 [facility] DATE CREATED AUTHOR AUTHOR'S ORGANIZ ATION 09/08/2024 [facility] EPIC Reason for Visit [...] BE BASED ON THE PRIMARY CLINICAL RECORDS. [facility] [employer] [facility]. provides no warranty or guarantee of the accuracy or completeness of information in this document.
[2024-09-12 19:52] LABS: Hematocrit 32.5 % (36.0-48.0); Hemoglobin 10.6 g/dL (12.0-16.0); Mean Corpuscular HGB Conc 32.6 g/dL (29.9-35.2); Mean Corpuscular Hemoglobin 26.4 pg (26.7-34.0); Mean Corpuscular Volume 80.8 fL (81.0-99.0); Mean Platelet Volume 11.5 fL (9.5-13.5); Platelet Count 214 10^3/uL (150-450); Red Blood Count 4.02 10^6/uL (4.20-5.40); Red Cell Distribution Width 14.3 % (11.0-15.0); White Blood Count 9.5 10^3/uL (4.0-11.0)
[2024-09-12 20:30] VITALS: TEMP 36.4
[2024-09-12 22:04] VITALS: TEMP 36
[2024-09-12 22:05] VITALS: BP 118/67; PULSE 89
[2024-09-12 23:46] VITALS: BP 103/63; PULSE 77; TEMP 36.6
[2024-09-13] VITALS (13 sets, daily range): BP systolic 102–117; BP diastolic 57–64; PULSE 68–93; TEMP 35.8–37.2
[2024-09-13] MEDS: 0.9 % SODIUM CHLORIDE 1,000 ML 125 ML IV (01:33)
[2024-09-13 03:00] LABS: Amphetamine Screen Urine NEGATIVE (NEGATIVE); Barbiturates Screen Urine NEGATIVE (NEGATIVE); Benzodiazepines Screen Urine NEGATIVE (NEGATIVE); Buprenorphine Screen Urine NEGATIVE (NEGATIVE); Cannabinoid Screen Urine NEGATIVE (NEGATIVE); Cocaine Screen Urine NEGATIVE (NEGATIVE); Methadone Screen Urine NEGATIVE (NEGATIVE); Methamphetamines Screen Urine NEGATIVE (NEGATIVE); Opiate Screen Urine NEGATIVE (NEGATIVE); Oxycodone Screen Urine NEGATIVE (NEGATIVE); Phencyclidine Screen Urine NEGATIVE (NEGATIVE); Tricyclic Antidepressant Urine NEGATIVE (NEGATIVE)
[2024-09-13] MEDS: LIDOCAINE HCL 1% 200 MG/20 ML MDV INJ (03:30)
[2024-09-13] MEDS: OXYTOCIN/0.9 % SODIUM CHLORIDE 20 UNITS/1,000 ML PLAST..BAG 999 UNIT IV (03:33)
[2024-09-13] MEDS: KETOROLAC TROMETHAMINE 30 MG/ML VIAL IVP (03:39)
--- NOTE | 2024-09-13 03:50 | PM.OBPRCVD ---
Procedure Intrapartal events: None Induction method: none Delivery monitor: external FHT and external uterine Route of delivery: Episiotomy Description: none L&D Laceration Description: perineal - 4th degree Delivery repair: Vicryl and Chromic Estimated blood loss (mL): 350 Anesthesia type: None Disposition: floor Delivery date: 09/29/24 Gender: female presentation: vertex Placental delivery description: Spontaneous cord description: 3 Vessels
[2024-09-13] MEDS: BENZOCAINE/MENTHOL 85 GRAM SPRAY BOTTLE 1 APPLIC TOPICAL (04:34)
[2024-09-13] MEDS: GLYCERIN/WITCH HAZEL PADS 1 PAD TOPICAL (04:34)
[2024-09-13] MEDS: ACETAMINOPHEN 500 MG TABLET 1000 MG PO ×3 (05:59→20:30)
[2024-09-13] MEDS: IBUPROFEN 600 MG TABLET PO ×2 (11:19→18:23)
[2024-09-13] MEDS: DOCUSATE SODIUM 100 MG CAPSULE PO ×2 (11:19→20:30)
[2024-09-14] MEDS: IBUPROFEN 600 MG TABLET PO ×4 (00:03→21:11)
[2024-09-14 00:05] VITALS: BP 114/67; PULSE 78; TEMP 37.1
[2024-09-14] MEDS: ACETAMINOPHEN 500 MG TABLET 1000 MG PO ×3 (02:29→18:37)
[2024-09-14 06:34] LABS: Basophils Percent Auto 0.1 % (0.2-2.0); Eosinophils Absolute Auto 0.3 10^3/uL (0.0-0.7); Eosinophils Percent Auto 2.2 % (0.9-7.0); Hematocrit 27.9 % (36.0-48.0); Hemoglobin 8.7 g/dL (12.0-16.0); Immature Granulocytes Abs Auto 0.06 10^3/uL (0.00-0.03); Immature Granulocytes Pct Auto 0.5 % (0.0-0.5); Lymphocytes Absolute Auto 2.6 10^3/uL (1.2-3.8); Lymphocytes Percent Auto 21.7 % (20.5-60.0); Mean Corpuscular HGB Conc 31.2 g/dL (29.9-35.2); Mean Corpuscular Hemoglobin 25.4 pg (26.7-34.0); Mean Corpuscular Volume 81.6 fL (81.0-99.0); Mean Platelet Volume 11.4 fL (9.5-13.5); Monocytes Absolute Auto 0.8 10^3/uL (0.3-0.8); Monocytes Percent Auto 6.8 % (1.7-12.0); Neutrophils Absolute Auto 8.2 10^3/uL (1.4-6.5); Neutrophils Percent Auto 68.7 % (43.0-75.0); Platelet Count 199 10^3/uL (150-450); Red Blood Count 3.42 10^6/uL (4.20-5.40); Red Cell Distribution Width 14.6 % (11.0-15.0); White Blood Count 11.9 10^3/uL (4.0-11.0)
[2024-09-14] MEDS: DOCUSATE SODIUM 100 MG CAPSULE PO ×2 (08:23→21:10)
[2024-09-14 08:25] VITALS: BP 97/58; PULSE 72
[2024-09-14 08:46] VITALS: TEMP 36.5
--- NOTE | 2024-09-14 09:18 | P.OBPN_ITS ---
OB - PN: Subj Subjective Patient comments: no complaints [place] status: doing well feeding status: exclusively Exam Constitutional Vital Signs, click to edit/add: Last Vital Signs Temp 97.7 F 09/14/24 08:46 Pulse 72 09/14/24 08:25 Resp 14 09/14/24 08:46 BP 97/58 09/14/24 08:25 O2 Del Method Room Air 09/14/24 08:46 Documenting provider has reviewed patient's vital signs: yes Common normals: no apparent distress, average body habitus, oriented x3, no limitations, healthy appearing, alert and well nourished General appearance: cooperative Orientation/consciousness: Yes awake, Yes oriented to person, Yes oriented to place and Yes oriented to time HENMT Common normals: normocephalic Head and scalp: normal to inspection Eye Common normals: EOMs intact bilaterally General eye: normal appearance of both eyes Neck & C-Spine Common normals: full ROM and no lymphadenopathy General: normal visual inspection Lymph Lymphatic: no lymphadenopathy noted Chest Common normals: inspection of chest normal Respiratory Common normals: normal respiratory effort, no retractions, no use of accessory muscles and clear to auscultation bilaterally Effort & inspection: able to speak in complete sentences Auscultation: clear to auscultation bilaterally Cardio Common normals: regular rate and regular rhythm Rate: regular rate Rhythm: regular rhythm GI Common normals: Normal to inspection, nondistended, normoactive bowel sounds present, soft to palpation and non-tender Inspection: normal to inspection Auscultation: normoactive bowel sounds Palpation: soft Percussion: normal to percussion Common normals: external appearance normal Back & Pelvis Common normals: no CVA tenderness Extremity Common normals: normal to inspection, full ROM, normal capillary refill, no joint enlargement, no clubbing, cyanosis or edema, no calf tenderness and no pedal edema Neuro Common normals: oriented x3 Sensorium/orientation: awake, alert, oriented to person, oriented to place and oriented to time Psych Common normals: mental status grossly normal, thought process normal, cooperative, affect normal, speech normal, activity/motor behavior normal, denies hallucinations, denies homicidal ideation and denies suicidal ideation Appearance: grossly normal Attitude: calm Results Labs Labs: Short CBC 09/14/24 Range/Units 06:17 WBC 11.9 H (4.0-11.0) 10^3/uL Hgb 8.7 L (12.0-16.0) g/dL Hct 27.9 L (36.0-48.0) % Plt Count 199 (150-450) 10^3/uL OB - PN: A/P Plan - Vaginal Delivery day: 1 Plan: routine care Time Spent with Patient Time: Total time spent is greater than 50% in coordination of care (as documented) at patient's floor/unit and/or counseling patient: Total time spent with greater than 50% in coordination of care (as documented) at patient's floor/unit and/or counseling patient: less than 15 minutes
[2024-09-15] MEDS: ACETAMINOPHEN 500 MG TABLET 1000 MG PO ×2 (00:18→06:49)
[2024-09-15 00:20] VITALS: BP 115/73; PULSE 88
[2024-09-15 00:27] VITALS: TEMP 36.7
[2024-09-15] MEDS: IBUPROFEN 600 MG TABLET PO (04:50)
--- NOTE | 2024-09-15 07:41 | PM.OBPN ---
OB - PN: Subj Subjective Patient comments: no complaints and pain well controlled [place] status: doing well Exam Constitutional Vital Signs, click to edit/add: Last Vital Signs Temp 98.0 F 09/15/24 00:27 Pulse 88 09/15/24 00:20 Resp 14 09/15/24 00:27 BP 115/73 09/15/24 00:20 O2 Del Method Room Air 09/15/24 00:27 Documenting provider has reviewed patient's vital signs: yes Common normals: no apparent distress Respiratory Common normals: normal respiratory effort and clear to auscultation bilaterally Cardio Common normals: regular rate and regular rhythm GI Common normals: Normal to inspection, nondistended, normoactive bowel sounds present Extremity Common normals: no clubbing, cyanosis or edema and no calf tenderness OB - PN: A/P Plan - Vaginal Delivery day: 2 Plan: routine care, discharge home and follow up 6 weeks Time Spent with Patient Time: Total time spent is greater than 50% in coordination of care (as documented) at patient's floor/unit and/or counseling patient: Total time spent with greater than 50% in coordination of care (as documented) at patient's floor/unit and/or counseling patient: less than 15 minutes
[2024-09-15 08:45] VITALS: BP 113/70; PULSE 82
[2024-09-15] MEDS: DOCUSATE SODIUM 100 MG CAPSULE PO (08:49)
== END 2024-09-15 12:45 | disposition home or self-care (01) | DRG 768 ==
PROVIDERS: Admitting Provider Obstetrics & Gynecology; Visit Provider Obstetrics & Gynecology
DX: O70.3 Fourth degree perineal laceration during delivery (principal); Z37.0 Single live birth; Z3A.38 38 weeks gestation of pregnancy
CPT/HCPCS: 36415; 59025; 59050; 59410; 80307; 81001; 84112; 85025; 85027; 86850; 86900; 86901; 87086; J1885